=== PATIENT | male | born 1965 | race Caucasian/White ===

== ENCOUNTER 2022-01-19 16:40 | Inpatient (IN) | payer MEDICAID, OTHER ==
[~2022-01-19] VITALS: Ht 190.5 cm; Wt 185.5 kg
[~2022-01-19 16:40] MED LIST: AMIODARONE 450mg/250ml AE 250 ML IV SCH
[2022-01-19] MEDS ORDERED: AMIODARONE 450mg/250ml AE 250 ML IV ONE (17:07)
[2022-01-19] MEDS ORDERED: cefTRIAXone 1GM/50ML D5W 50 ML IV ONE (17:15)
[2022-01-19] MEDS ORDERED: AZITHROMYCIN 500MG/ 250ML 250 ML IV ONE (17:15)
[2022-01-19] MEDS ORDERED: FUROSEMIDE 40 MG/4 ML VIAL IV ONE ×2 (17:15→21:30)
[2022-01-19] MEDS ORDERED: methylPREDNISolone SOD SUCC 125 MG/2 ML VL IV ONE ×2 (17:15)
[2022-01-19 17:39] VITALS: BP 138/75
[2022-01-19 18:31] LABS: Urine Bacteria MANY /hpf (None Seen); Urine Blood Negative /uL (Negative); Urine Mucus MODERATE (None Seen); Urine Specific Gravity 1.021 (1.001-1.035); Urine WBC 552 /hpf (0 - 3); Urine WBC Clumps PRESENT /hpf (None Seen)
[2022-01-19 18:43] LABS: Basophils # (auto) 0.1 10 ^3/uL (0-0.2); Basophils % (auto) 0.7 % (0.0-2.0); Eosinophils # (auto) 0 10 ^3/uL (0-0.8); Eosinophils % (auto) 0.2 % (0.0-7.0); Hematocrit 43.5 % (41.0-53.0); Hemoglobin 14.4 g/dL (13.5-17.5); Lymphocytes # (auto) 1.4 10 ^3/uL (0.4-5.4); Mean Corpuscular Hemoglobin 28.2 pg (28.0-32.0); Mean Corpuscular Volume 85.5 fL (80.0-100.0); Monocytes # (auto) 0.7 10 ^3/uL (0-1.3); Monocytes % (auto) 7.3 % (0.0-12.0); Neutrophils # (auto) 6.8 10 ^3/uL (1.6-8.6); Neutrophils % (auto) 75.8 % (37.0-80.0); Nucleated Red Blood Cells % 0.1 %; Red Blood Cells 5.08 10^6/uL (4.5-5.90); Red Cell Distribution Width 15.2 % (11.8-14.3)
[2022-01-19 19:00] LABS: INR 1.23 (0.9-1.15); Partial Thromboplastin Time 28.2 sec (23.6-33.0)
[2022-01-19] MEDS: AMIODARONE 450mg/250ml AE 250 ML IV SCH (19:25)
[2022-01-19 19:35] LABS: Albumin 2.8 g/dL (3.4-5.0); Calcium 8.6 mg/dL (8.5-10.1); Potassium 3.3 mmol/L (3.5-5.1)
[2022-01-19 19:40] LABS: BUN/Creatinine Ratio 12.9; Bilirubin, Total 0.9 mg/dL (0.2-1.0); Total Protein 6.8 g/dL (6.4-8.2)
[2022-01-19 21:20] VITALS: BP 102/64
[2022-01-19] MEDS ORDERED: NITROGLYCERIN 0.4 MG SL TAB SL PRN (21:30)
[2022-01-19] MEDS ORDERED: HEPARIN 1,000 UNITS/ml 1ML VIAL SC SCH (22:00)
[2022-01-19] MEDS ORDERED: HEPARIN SODIUM (PORCINE) 5000 UNITS/ML 1ML VIAL ONE (22:14)
[2022-01-19] MEDS: ATORVASTATIN 20 MG TAB PO SCH (22:23)
[2022-01-19] MEDS ORDERED: ASCO500T11 PO (22:34)
[2022-01-19] MEDS ORDERED: PERCOT PO (22:34)
[2022-01-19] MEDS ORDERED: FURO1TAB31 PO (22:34)
[2022-01-19] MEDS ORDERED: APIX5TAB PO (22:34)
[2022-01-19] MEDS ORDERED: OMEP20TA PO (22:34)
[2022-01-19] MEDS ORDERED: GABA300C10 PO (22:34)
[2022-01-19] MEDS ORDERED: IPRIH INH (22:34)
[2022-01-19] MEDS ORDERED: ZOLP10TA PO (22:34)
[2022-01-19] MEDS ORDERED: CHOL20007 PO (22:34)
[2022-01-19] MEDS ORDERED: ALBUAER3 IN (22:34)
[2022-01-19] MEDS ORDERED: CLON-853 PO (22:34)
[2022-01-19] MEDS ORDERED: ASPI-543 PO (22:34)
[2022-01-19] MEDS: CARVEDILOL 3.125 MG TAB PO SCH (22:45)
[2022-01-20] MEDS ORDERED: AMIODARONE 450mg/250ml AE 250 ML IV SCH
[2022-01-20 00:52] VITALS: BP 102/64
[2022-01-20 02:06] VITALS: BP 78/37
[2022-01-20] MEDS: ACETAMINOPHEN 325 MG TAB PO PRN ×2 (02:15→09:22)
[2022-01-20 06:05] VITALS: BP 93/51
[2022-01-20 08:05] VITALS: BP 97/62
[2022-01-20 08:16] LABS: Basophils # (auto) 0 10 ^3/uL (0-0.2); Basophils % (auto) 0.3 % (0.0-2.0); Eosinophils # (auto) 0 10 ^3/uL (0-0.8); Hematocrit 41.4 % (41.0-53.0); Hemoglobin 13.4 g/dL (13.5-17.5); Lymphocytes # (auto) 0.9 10 ^3/uL (0.4-5.4); Lymphocytes % (auto) 13.2 % (10.0-50.0); Mean Corpuscular Hemoglobin 27.7 pg (28.0-32.0); Mean Corpuscular Hgb Conc. 32.4 g/dL (32.0-36.0); Mean Corpuscular Volume 85.6 fL (80.0-100.0); Monocytes # (auto) 0.2 10 ^3/uL (0-1.3); Monocytes % (auto) 3.3 % (0.0-12.0); Neutrophils # (auto) 5.4 10 ^3/uL (1.6-8.6); Neutrophils % (auto) 83.2 % (37.0-80.0); Nucleated Red Blood Cells % 0.1 %; Red Blood Cells 4.84 10^6/uL (4.5-5.90); Red Cell Distribution Width 14.9 % (11.8-14.3); White Blood Cell 6.5 10^3/uL (4.4-10.8)
[2022-01-20] MEDS: FUROSEMIDE 40 MG/4 ML VIAL IV SCH ×2 (09:20→22:47)
[2022-01-20] MEDS: LOSARTAN POTASSIUM 50 MG TAB PO SCH (09:20)
[2022-01-20] MEDS: cefTRIAXone 1GM/50ML D5W 50 ML IV SCH (09:20)
[2022-01-20] MEDS: CARVEDILOL 3.125 MG TAB PO SCH ×2 (09:22→22:46)
[2022-01-20] MEDS ORDERED: ENOXAPARIN SOD 100 MG/1 ML SYRINGE SC SCH (10:00)
[2022-01-20] MEDS: AZITHROMYCIN 500MG/ 250ML 250 ML IV SCH (10:08)
[2022-01-20] MEDS: HYDROcodone-ACET 10/325MG TAB PO PRN (11:16)
[2022-01-20 12:59] LABS: Albumin 2.6 g/dL (3.4-5.0); Calcium 8.1 mg/dL (8.5-10.1); Potassium 4.1 mmol/L (3.5-5.1)
[2022-01-20 13:02] LABS: BUN/Creatinine Ratio 13.3; Bilirubin, Total 0.8 mg/dL (0.2-1.0); Total Protein 6.5 g/dL (6.4-8.2)
[2022-01-20] MEDS: AMIODARONE 450mg/250ml AE 250 ML IV SCH (14:38)
[2022-01-20] MEDS ORDERED: DEXTROSE (50%) 50ML SYRG IV PRN (14:45)
[2022-01-20] MEDS ORDERED: HYDR-4798 PO (17:23)
[2022-01-20] MEDS: ACCU-CHEK COMFORT CURVE STRIP VI SCH ×2 (18:00→22:38)
[2022-01-20] MEDS: InsuLIN REG 1unit/0.01ml Soln (100units/ml) SC SCH ×2 (18:00→22:37)
[2022-01-20 19:06] VITALS: BP 85/52
[2022-01-20] MEDS: MORPHINE SULFATE 4 MG/ML SYR/VIAL IV PRN ×2 (19:44→23:08)
[2022-01-20] MEDS: ENOXAPARIN SOD 150 MG/1 ML SYRINGE SC SCH (20:17)
[2022-01-20] MEDS: ATORVASTATIN 20 MG TAB PO SCH (22:46)
[2022-01-21] VITALS (21 sets, daily range): BP systolic 64–118; BP diastolic 35–69
[2022-01-21] MEDS ORDERED: NOREPINEPHRINE 8 MG/250ML KIT 250 ML IV ONE (03:19)
[2022-01-21] MEDS: NOREPINEPHRINE 8 MG/250ML KIT 250 ML IV SCH (04:05)
[2022-01-21] MEDS: AMIODARONE 450mg/250ml AE 250 ML IV SCH ×2 (06:00→19:45)
[2022-01-21] MEDS: ACCU-CHEK COMFORT CURVE STRIP VI SCH ×4 (07:28→21:46)
[2022-01-21] MEDS: InsuLIN REG 1unit/0.01ml Soln (100units/ml) SC SCH ×4 (07:29→21:46)
[2022-01-21] MEDS: IPRATROPIUM BROM 0.5 MG/2.5ML INH SOL NEB PRN (08:30)
[2022-01-21] MEDS: ALBUTEROL SULF 2.5 MG/0.5ML(0.5%) NEB SOLN NEB PRN (08:30)
[2022-01-21] MEDS: cefTRIAXone 1GM/50ML D5W 50 ML IV SCH (09:14)
[2022-01-21] MEDS: ENOXAPARIN SOD 150 MG/1 ML SYRINGE SC SCH ×2 (10:00→21:11)
[2022-01-21] MEDS: FUROSEMIDE 40 MG/4 ML VIAL IV SCH ×2 (10:12→21:08)
[2022-01-21] MEDS: AZITHROMYCIN 500MG/ 250ML 250 ML IV SCH (10:12)
[2022-01-21] MEDS: CARVEDILOL 3.125 MG TAB PO SCH ×2 (10:52→21:09)
[2022-01-21] MEDS: LOSARTAN POTASSIUM 50 MG TAB PO SCH (10:53)
[2022-01-21 11:30] LABS: Basophils # (auto) 0.1 10 ^3/uL (0-0.2); Basophils % (auto) 0.9 % (0.0-2.0); Eosinophils # (auto) 0 10 ^3/uL (0-0.8); Eosinophils % (auto) 0.3 % (0.0-7.0); Hematocrit 40.3 % (41.0-53.0); Hemoglobin 13.4 g/dL (13.5-17.5); Lymphocytes # (auto) 2.6 10 ^3/uL (0.4-5.4); Lymphocytes % (auto) 20.9 % (10.0-50.0); Mean Corpuscular Hemoglobin 28.5 pg (28.0-32.0); Mean Corpuscular Hgb Conc. 33.3 g/dL (32.0-36.0); Mean Corpuscular Volume 85.5 fL (80.0-100.0); Monocytes # (auto) 1.2 10 ^3/uL (0-1.3); Monocytes % (auto) 9.4 % (0.0-12.0); Neutrophils # (auto) 8.5 10 ^3/uL (1.6-8.6); Neutrophils % (auto) 68.5 % (37.0-80.0); Nucleated Red Blood Cells % 0.2 %; Red Blood Cells 4.72 10^6/uL (4.5-5.90); White Blood Cell 12.5 10^3/uL (4.4-10.8)
[2022-01-21 11:42] LABS: Potassium 3.6 mmol/L (3.5-5.1)
[2022-01-21] MEDS: DOBUTamine 1000MCG/ML 250 ML IV SCH ×4 (12:08→21:10)
[2022-01-21 13:21] LABS: Albumin 2.9 g/dL (3.4-5.0); BUN/Creatinine Ratio 16.1; CRP High Sensitivity 0.6 mg/dL (< 0.3); Calcium 8.4 mg/dL (8.5-10.1)
[2022-01-21 13:24] LABS: Bilirubin, Total 0.7 mg/dL (0.2-1.0); Total Protein 6.1 g/dL (6.4-8.2)
[2022-01-21] MEDS: MORPHINE SULFATE 4 MG/ML SYR/VIAL IV PRN (14:55)
[2022-01-21] MEDS: ATORVASTATIN 20 MG TAB PO SCH (21:11)
[2022-01-22] VITALS (55 sets, daily range): BP systolic 57–147; BP diastolic 33–88
[2022-01-22] MEDS: DOBUTamine 1000MCG/ML 250 ML IV SCH ×4 (02:07→14:04)
[2022-01-22] MEDS: NOREPINEPHRINE 8 MG/250ML KIT 250 ML IV SCH (04:22)
[2022-01-22] MEDS: HYDROcodone-ACET 10/325MG TAB PO PRN ×2 (04:24→21:07)
[2022-01-22 05:19] LABS: Basophils # (auto) 0.1 10 ^3/uL (0-0.2); Basophils % (auto) 1.1 % (0.0-2.0); Eosinophils # (auto) 0 10 ^3/uL (0-0.8); Eosinophils % (auto) 0.3 % (0.0-7.0); Hematocrit 38.3 % (41.0-53.0); Hemoglobin 12.9 g/dL (13.5-17.5); Lymphocytes # (auto) 1.8 10 ^3/uL (0.4-5.4); Lymphocytes % (auto) 21.6 % (10.0-50.0); Mean Corpuscular Hemoglobin 28.9 pg (28.0-32.0); Mean Corpuscular Hgb Conc. 33.8 g/dL (32.0-36.0); Mean Corpuscular Volume 85.4 fL (80.0-100.0); Monocytes # (auto) 0.8 10 ^3/uL (0-1.3); Monocytes % (auto) 9.8 % (0.0-12.0); Neutrophils # (auto) 5.5 10 ^3/uL (1.6-8.6); Neutrophils % (auto) 67.2 % (37.0-80.0); Nucleated Red Blood Cells % 0.1 %; Red Blood Cells 4.48 10^6/uL (4.5-5.90); Red Cell Distribution Width 15.2 % (11.8-14.3); White Blood Cell 8.1 10^3/uL (4.4-10.8)
[2022-01-22 05:57] LABS: BUN/Creatinine Ratio 17.2; Potassium 3.2 mmol/L (3.5-5.1)
[2022-01-22 05:58] LABS: Albumin 2.4 g/dL (3.4-5.0); Bilirubin, Total 0.7 mg/dL (0.2-1.0); Calcium 8.2 mg/dL (8.5-10.1); Magnesium 1.7 mg/dL (1.6-2.6); Phosphorus 3.9 mg/dL (2.5-4.90); Total Protein 5.8 g/dL (6.4-8.2)
[2022-01-22] MEDS: ACCU-CHEK COMFORT CURVE STRIP VI SCH ×4 (06:05→21:39)
[2022-01-22] MEDS: InsuLIN REG 1unit/0.01ml Soln (100units/ml) SC SCH ×4 (06:08→21:42)
[2022-01-22] MEDS: cefTRIAXone 1GM/50ML D5W 50 ML IV SCH ×2 (09:00→10:27)
[2022-01-22] MEDS: AZITHROMYCIN 500MG/ 250ML 250 ML IV SCH ×3 (10:10→13:57)
[2022-01-22] MEDS: CARVEDILOL 3.125 MG TAB PO SCH ×2 (10:18→21:38)
[2022-01-22] MEDS: LOSARTAN POTASSIUM 50 MG TAB PO SCH (10:26)
[2022-01-22] MEDS: ENOXAPARIN SOD 150 MG/1 ML SYRINGE SC SCH ×2 (10:27→21:39)
[2022-01-22] MEDS: FUROSEMIDE 40 MG/4 ML VIAL IV SCH ×2 (10:27→21:36)
[2022-01-22] MEDS ORDERED: DOBUTamine 1000MCG/ML 250 ML IV ONE (10:34)
[2022-01-22] MEDS ORDERED: POTASSIUM CHL 20 Meq TABLET PO ONE (11:45)
[2022-01-22] MEDS: AMIODARONE 450mg/250ml AE 250 ML IV SCH (11:47)
[2022-01-22 16:08] LABS: INR 1.19 (0.9-1.15); Partial Thromboplastin Time 32.8 sec (23.6-33.0)
[2022-01-22] MEDS: DOBUTamine HCL 500 MG in D5W 5% 210 ML IV SCH ×2 (18:15→21:41)
[2022-01-22] MEDS ORDERED: LIDOCAINE 1% (LOCAL ANESTH.) PF 5ml SDV ID ONE (18:30)
[2022-01-22] MEDS: SODIUM CHLOR 0.9% PF (SALINE LOCK) 10ML VIAL/SYR IV SCH (21:38)
[2022-01-22] MEDS: ATORVASTATIN 20 MG TAB PO SCH (21:39)
[2022-01-23] VITALS (63 sets, daily range): BP systolic 88–157; BP diastolic 45–121
[2022-01-23] MEDS: AMIODARONE 450mg/250ml AE 250 ML IV SCH (00:51)
[2022-01-23] MEDS: DOBUTamine HCL 500 MG in D5W 5% 210 ML IV SCH ×3 (00:52→16:15)
[2022-01-23] MEDS: NOREPINEPHRINE 8 MG/250ML KIT 250 ML IV SCH (03:30)
[2022-01-23] MEDS: HYDROcodone-ACET 10/325MG TAB PO PRN ×3 (03:34→18:13)
[2022-01-23 05:18] LABS: Basophils # (auto) 0.1 10 ^3/uL (0-0.2); Eosinophils # (auto) 0.1 10 ^3/uL (0-0.8); Hematocrit 37.1 % (41.0-53.0); Hemoglobin 12.3 g/dL (13.5-17.5); Lymphocytes # (auto) 1.6 10 ^3/uL (0.4-5.4); Lymphocytes % (auto) 23.9 % (10.0-50.0); Mean Corpuscular Hemoglobin 28.6 pg (28.0-32.0); Mean Corpuscular Volume 86.6 fL (80.0-100.0); Monocytes # (auto) 0.5 10 ^3/uL (0-1.3); Neutrophils # (auto) 4.4 10 ^3/uL (1.6-8.6); Neutrophils % (auto) 65.1 % (37.0-80.0); Nucleated Red Blood Cells % 0.2 %; Red Blood Cells 4.29 10^6/uL (4.5-5.90); Red Cell Distribution Width 14.7 % (11.8-14.3); White Blood Cell 6.8 10^3/uL (4.4-10.8)
[2022-01-23 05:38] LABS: Potassium 3.2 mmol/L (3.5-5.1)
[2022-01-23 05:43] LABS: BUN/Creatinine Ratio 18.2
[2022-01-23] MEDS: InsuLIN REG 1unit/0.01ml Soln (100units/ml) SC SCH ×4 (06:00→22:00)
[2022-01-23] MEDS: ACCU-CHEK COMFORT CURVE STRIP VI SCH ×4 (06:01→21:59)
[2022-01-23] MEDS ORDERED: POTASSIUM CHL 20 Meq TABLET PO ONE (09:00)
[2022-01-23] MEDS: cefTRIAXone 1GM/50ML D5W 50 ML IV SCH (09:00)
[2022-01-23] MEDS: SODIUM CHLOR 0.9% PF (SALINE LOCK) 10ML VIAL/SYR IV SCH ×2 (10:00→21:57)
[2022-01-23] MEDS: CARVEDILOL 3.125 MG TAB PO SCH ×2 (10:00→21:58)
[2022-01-23] MEDS: AMIODARONE HCL 200 MG TAB PO SCH ×2 (10:00→21:58)
[2022-01-23] MEDS: ENOXAPARIN SOD 150 MG/1 ML SYRINGE SC SCH ×2 (10:00→21:59)
[2022-01-23] MEDS: AZITHROMYCIN 500MG/ 250ML 250 ML IV SCH (10:00)
[2022-01-23] MEDS: LOSARTAN POTASSIUM 50 MG TAB PO SCH (10:00)
[2022-01-23] MEDS: FUROSEMIDE 40 MG/4 ML VIAL IV SCH ×2 (10:00→21:57)
[2022-01-23 20:16] LABS: Alcohol, Urine < 3.0 mg/dL (0-10); Amphetamine Screen, Urine NEGATIVE (NEGATIVE); Barbiturate Scree,Urine NEGATIVE (NEGATIVE); Benzodiazephine Screen, Urine NEGATIVE (NEGATIVE); Cannabinoid Screen, Urine POSITIVE (NEGATIVE); Cocaine Screen, Urine NEGATIVE (NEGATIVE); Opiate Scree,Urine POSITIVE (NEGATIVE); Phencyclidine Screen, Urine NEGATIVE (NEGATIVE)
[2022-01-23] MEDS: ATORVASTATIN 20 MG TAB PO SCH (21:58)
[2022-01-24] VITALS (49 sets, daily range): BP systolic 92–165; BP diastolic 39–87
[2022-01-24] MEDS: HYDROcodone-ACET 10/325MG TAB PO PRN ×3 (00:47→18:49)
[2022-01-24] MEDS: NOREPINEPHRINE 8 MG/250ML KIT 250 ML IV SCH (02:13)
[2022-01-24] MEDS: DOBUTamine HCL 500 MG in D5W 5% 210 ML IV SCH (02:17)
[2022-01-24 05:05] LABS: Basophils # (auto) 0.1 10 ^3/uL (0-0.2); Basophils % (auto) 0.9 % (0.0-2.0); Eosinophils # (auto) 0.1 10 ^3/uL (0-0.8); Eosinophils % (auto) 1.5 % (0.0-7.0); Hemoglobin 12.9 g/dL (13.5-17.5); Lymphocytes # (auto) 1.9 10 ^3/uL (0.4-5.4); Mean Corpuscular Volume 85.3 fL (80.0-100.0); Monocytes # (auto) 0.6 10 ^3/uL (0-1.3); Neutrophils # (auto) 4.3 10 ^3/uL (1.6-8.6); Neutrophils % (auto) 62.6 % (37.0-80.0); Nucleated Red Blood Cells % 0.1 %; Red Blood Cells 4.45 10^6/uL (4.5-5.90); Red Cell Distribution Width 15.1 % (11.8-14.3); White Blood Cell 6.9 10^3/uL (4.4-10.8)
[2022-01-24 05:23] LABS: Albumin 2.3 g/dL (3.4-5.0); Potassium 3.4 mmol/L (3.5-5.1)
[2022-01-24 05:25] LABS: BUN/Creatinine Ratio 17.6; Magnesium 1.8 mg/dL (1.6-2.6)
[2022-01-24 05:28] LABS: Bilirubin, Total 0.6 mg/dL (0.2-1.0); Total Protein 6.1 g/dL (6.4-8.2)
[2022-01-24] MEDS: InsuLIN REG 1unit/0.01ml Soln (100units/ml) SC SCH ×4 (06:09→22:00)
[2022-01-24] MEDS: ACCU-CHEK COMFORT CURVE STRIP VI SCH ×4 (06:09→22:00)
[2022-01-24] MEDS ORDERED: POTASSIUM CHL 20 Meq TABLET PO ONE (06:45)
[2022-01-24] MEDS ORDERED: MAGNESIUM SULFATE 1GM/100ML 100 ML IV SCH (07:00)
[2022-01-24] MEDS ORDERED: MAGNESIUM SULFATE 1GM/100ML 100 ML IV ONE (07:15)
[2022-01-24] MEDS: CARVEDILOL 3.125 MG TAB PO SCH ×2 (10:00→22:48)
[2022-01-24] MEDS: SODIUM CHLOR 0.9% PF (SALINE LOCK) 10ML VIAL/SYR IV SCH ×2 (10:00→22:00)
[2022-01-24] MEDS: FUROSEMIDE 40 MG/4 ML VIAL IV SCH ×2 (10:00→22:47)
[2022-01-24] MEDS: LOSARTAN POTASSIUM 50 MG TAB PO SCH (10:00)
[2022-01-24] MEDS: ENOXAPARIN SOD 150 MG/1 ML SYRINGE SC SCH ×2 (10:00→22:00)
[2022-01-24] MEDS: AMIODARONE HCL 200 MG TAB PO SCH ×2 (10:00→22:28)
[2022-01-24] MEDS: IPRATROPIUM BROM 0.5 MG/2.5ML INH SOL NEB PRN (20:26)
[2022-01-24] MEDS: ALBUTEROL SULF 2.5 MG/0.5ML(0.5%) NEB SOLN NEB PRN (20:26)
[2022-01-24] MEDS: ATORVASTATIN 20 MG TAB PO SCH (22:27)
[2022-01-24] MEDS: MORPHINE SULFATE 4 MG/ML SYR/VIAL IV PRN (23:02)
[2022-01-25] VITALS (8 sets, daily range): BP systolic 82–139; BP diastolic 52–87
[2022-01-25] MEDS: HYDROcodone-ACET 10/325MG TAB PO PRN (03:25)
[2022-01-25] MEDS: ACCU-CHEK COMFORT CURVE STRIP VI SCH ×4 (06:25→22:00)
[2022-01-25] MEDS: InsuLIN REG 1unit/0.01ml Soln (100units/ml) SC SCH ×4 (06:47→22:57)
[2022-01-25] MEDS: AZITHROMYCIN 500MG/ 250ML 250 ML IV SCH (09:19)
[2022-01-25] MEDS: cefTRIAXone 1GM/50ML D5W 50 ML IV SCH (09:19)
[2022-01-25] MEDS: AMIODARONE HCL 200 MG TAB PO SCH ×2 (09:20→22:53)
[2022-01-25] MEDS: FUROSEMIDE 40 MG/4 ML VIAL IV SCH ×2 (09:23→22:52)
[2022-01-25] MEDS: CARVEDILOL 3.125 MG TAB PO SCH ×2 (09:26→22:54)
[2022-01-25] MEDS: LOSARTAN POTASSIUM 50 MG TAB PO SCH (09:27)
[2022-01-25] MEDS: ENOXAPARIN SOD 150 MG/1 ML SYRINGE SC SCH ×2 (09:29→22:55)
[2022-01-25] MEDS: SODIUM CHLOR 0.9% PF (SALINE LOCK) 10ML VIAL/SYR IV SCH ×2 (09:30→22:52)
[2022-01-25] MEDS: MORPHINE SULFATE 4 MG/ML SYR/VIAL IV PRN (16:22)
[2022-01-25] MEDS: IPRATROPIUM BROM 0.5 MG/2.5ML INH SOL NEB PRN (17:58)
[2022-01-25] MEDS: ALBUTEROL SULF 2.5 MG/0.5ML(0.5%) NEB SOLN NEB PRN (17:58)
[2022-01-25] MEDS: ATORVASTATIN 20 MG TAB PO SCH (22:55)
[2022-01-26] MEDS: HYDROcodone-ACET 10/325MG TAB PO PRN ×2 (00:05→19:42)
[2022-01-26 04:31] VITALS: BP 112/65
[2022-01-26 05:17] LABS: Albumin 2.3 g/dL (3.4-5.0); Calcium 8.1 mg/dL (8.5-10.1); Potassium 3.4 mmol/L (3.5-5.1)
[2022-01-26 05:20] LABS: BUN/Creatinine Ratio 22.5
[2022-01-26 05:22] LABS: Bilirubin, Total 0.6 mg/dL (0.2-1.0); Total Protein 5.9 g/dL (6.4-8.2)
[2022-01-26] MEDS: InsuLIN REG 1unit/0.01ml Soln (100units/ml) SC SCH ×4 (06:09→21:34)
[2022-01-26] MEDS: ACCU-CHEK COMFORT CURVE STRIP VI SCH ×4 (06:09→21:40)
[2022-01-26] MEDS: cefTRIAXone 1GM/50ML D5W 50 ML IV SCH (08:23)
[2022-01-26 09:00] VITALS: BP 82/56
[2022-01-26] MEDS: LOSARTAN POTASSIUM 50 MG TAB PO SCH (10:00)
[2022-01-26] MEDS: CARVEDILOL 3.125 MG TAB PO SCH ×2 (10:00→21:39)
[2022-01-26] MEDS: AZITHROMYCIN 500MG/ 250ML 250 ML IV SCH (10:09)
[2022-01-26] MEDS: ENOXAPARIN SOD 150 MG/1 ML SYRINGE SC SCH ×2 (10:09→21:40)
[2022-01-26] MEDS: SODIUM CHLOR 0.9% PF (SALINE LOCK) 10ML VIAL/SYR IV SCH ×2 (10:11→21:37)
[2022-01-26] MEDS: FUROSEMIDE 40 MG/4 ML VIAL IV SCH ×2 (10:11→21:37)
[2022-01-26] MEDS: AMIODARONE HCL 200 MG TAB PO SCH ×2 (10:12→21:38)
[2022-01-26] MEDS: MORPHINE SULFATE 4 MG/ML SYR/VIAL IV PRN (12:05)
[2022-01-26 13:00] VITALS: BP 118/62
[2022-01-26] MEDS: POTASSIUM CHLORIDE 40 MEQ in SOD CHL 0.45% 1,000 ML IV SCH ×2 (13:30→15:30)
[2022-01-26 17:00] VITALS: BP 90/69
[2022-01-26] MEDS: ATORVASTATIN 20 MG TAB PO SCH (21:39)
[2022-01-26 22:00] VITALS: BP 114/73
[2022-01-27] MEDS: IPRATROPIUM BROM 0.5 MG/2.5ML INH SOL NEB PRN (00:13)
[2022-01-27] MEDS: ALBUTEROL SULF 2.5 MG/0.5ML(0.5%) NEB SOLN NEB PRN (00:13)
[2022-01-27] MEDS: HYDROcodone-ACET 10/325MG TAB PO PRN ×2 (02:01→18:35)
[2022-01-27 05:00] VITALS: BP 116/54
[2022-01-27 05:40] LABS: Basophils # (auto) 0.1 10 ^3/uL (0-0.2); Basophils % (auto) 0.9 % (0.0-2.0); Eosinophils # (auto) 0.1 10 ^3/uL (0-0.8); Eosinophils % (auto) 1.3 % (0.0-7.0); Hemoglobin 13.4 g/dL (13.5-17.5); Lymphocytes # (auto) 2.3 10 ^3/uL (0.4-5.4); Lymphocytes % (auto) 28.2 % (10.0-50.0); Mean Corpuscular Hemoglobin 29.3 pg (28.0-32.0); Mean Corpuscular Hgb Conc. 34.4 g/dL (32.0-36.0); Mean Corpuscular Volume 85.1 fL (80.0-100.0); Monocytes # (auto) 0.9 10 ^3/uL (0-1.3); Monocytes % (auto) 10.5 % (0.0-12.0); Neutrophils # (auto) 4.9 10 ^3/uL (1.6-8.6); Neutrophils % (auto) 59.1 % (37.0-80.0); Nucleated Red Blood Cells % 0.1 %; Red Blood Cells 4.58 10^6/uL (4.5-5.90); Red Cell Distribution Width 15.1 % (11.8-14.3); White Blood Cell 8.2 10^3/uL (4.4-10.8)
[2022-01-27 05:55] LABS: Albumin 2.3 g/dL (3.4-5.0); Calcium 8.3 mg/dL (8.5-10.1); Potassium 4.2 mmol/L (3.5-5.1)
[2022-01-27 06:00] LABS: BUN/Creatinine Ratio 18.9; Bilirubin, Total 0.6 mg/dL (0.2-1.0)
[2022-01-27] MEDS: InsuLIN REG 1unit/0.01ml Soln (100units/ml) SC SCH ×4 (07:00→21:31)
[2022-01-27] MEDS: ACCU-CHEK COMFORT CURVE STRIP VI SCH ×4 (07:03→21:57)
[2022-01-27] MEDS: cefTRIAXone 1GM/50ML D5W 50 ML IV SCH (08:24)
[2022-01-27 09:00] VITALS: BP 104/63
[2022-01-27 09:27] LABS: INR 1.19 (0.9-1.15); Partial Thromboplastin Time 32.2 sec (23.6-33.0)
[2022-01-27] MEDS: FUROSEMIDE 40 MG/4 ML VIAL IV SCH (09:48)
[2022-01-27] MEDS: AMIODARONE HCL 200 MG TAB PO SCH ×2 (09:48→21:56)
[2022-01-27] MEDS: LOSARTAN POTASSIUM 50 MG TAB PO SCH (09:49)
[2022-01-27] MEDS: CARVEDILOL 3.125 MG TAB PO SCH ×2 (09:49→21:56)
[2022-01-27] MEDS: SODIUM CHLOR 0.9% PF (SALINE LOCK) 10ML VIAL/SYR IV SCH ×2 (09:50→21:55)
[2022-01-27] MEDS: AZITHROMYCIN 500MG/ 250ML 250 ML IV SCH (09:51)
[2022-01-27] MEDS: ENOXAPARIN SOD 150 MG/1 ML SYRINGE SC SCH ×2 (10:00→21:56)
[2022-01-27 13:00] VITALS: BP 88/64
[2022-01-27 14:40] VITALS: BP 86/56
[2022-01-27 17:00] VITALS: BP 108/69
[2022-01-27] MEDS: BUMETANIDE 2.5mg/10ml (0.25 mg/ml) INJ IV SCH (18:00)
[2022-01-27] MEDS: ATORVASTATIN 20 MG TAB PO SCH (21:56)
[2022-01-27 22:00] VITALS: BP 88/63
[2022-01-28] VITALS (8 sets, daily range): BP systolic 81–108; BP diastolic 55–72
[2022-01-28] MEDS ORDERED: POTASSIUM CHL 10MEQ/50ML 200 ML IV ONE (01:58)
[2022-01-28] MEDS: POTASSIUM CHLORIDE 40 MEQ in SOD CHL 0.45% 1,000 ML IV SCH (02:24)
[2022-01-28] MEDS: HYDROcodone-ACET 10/325MG TAB PO PRN ×3 (02:26→17:43)
[2022-01-28] MEDS: BUMETANIDE 2.5mg/10ml (0.25 mg/ml) INJ IV SCH ×2 (05:50→17:40)
[2022-01-28] MEDS: InsuLIN REG 1unit/0.01ml Soln (100units/ml) SC SCH ×4 (05:53→21:58)
[2022-01-28] MEDS: ACCU-CHEK COMFORT CURVE STRIP VI SCH ×4 (05:53→21:57)
[2022-01-28] MEDS: SOD CHL 0.45% WITH 20MEQ KCL 1,000 ML IV SCH (07:15)
[2022-01-28] MEDS: ALBUTEROL SULF 2.5 MG/0.5ML(0.5%) NEB SOLN NEB PRN ×2 (09:52→17:51)
[2022-01-28] MEDS: CARVEDILOL 3.125 MG TAB PO SCH ×2 (10:00→21:57)
[2022-01-28] MEDS: LOSARTAN POTASSIUM 50 MG TAB PO SCH (10:00)
[2022-01-28] MEDS: cefTRIAXone 1GM/50ML D5W 50 ML IV SCH (10:00)
[2022-01-28] MEDS: ENOXAPARIN SOD 150 MG/1 ML SYRINGE SC SCH ×2 (10:00→21:57)
[2022-01-28] MEDS: SODIUM CHLOR 0.9% PF (SALINE LOCK) 10ML VIAL/SYR IV SCH ×2 (10:18→21:56)
[2022-01-28] MEDS: AZITHROMYCIN 500MG/ 250ML 250 ML IV SCH (10:18)
[2022-01-28] MEDS: AMIODARONE HCL 200 MG TAB PO SCH ×2 (10:19→21:56)
[2022-01-28 16:09] LABS: BUN/Creatinine Ratio 22.4; Calcium 8.4 mg/dL (8.5-10.1); Potassium 3.8 mmol/L (3.5-5.1)
[2022-01-28] MEDS: IPRATROPIUM BROM 0.5 MG/2.5ML INH SOL NEB PRN (17:51)
[2022-01-28] MEDS: ATORVASTATIN 20 MG TAB PO SCH (21:57)
[2022-01-28] MEDS: NYSTATIN TOPICAL POWDER 15GM TOP SCH (21:57)
[2022-01-29] MEDS: HYDROcodone-ACET 10/325MG TAB PO PRN ×3 (00:25→15:56)
[2022-01-29 01:48] VITALS: BP 101/70
[2022-01-29] MEDS: SOD CHL 0.45% WITH 20MEQ KCL 1,000 ML IV SCH (03:15)
[2022-01-29 05:00] VITALS: BP 115/76
[2022-01-29] MEDS: BUMETANIDE 2.5mg/10ml (0.25 mg/ml) INJ IV SCH ×2 (06:00→18:00)
[2022-01-29 06:01] LABS: BUN/Creatinine Ratio 20.2; Calcium 8.9 mg/dL (8.5-10.1); Potassium 4.4 mmol/L (3.5-5.1)
[2022-01-29] MEDS: ACCU-CHEK COMFORT CURVE STRIP VI SCH ×4 (06:40→22:00)
[2022-01-29] MEDS: InsuLIN REG 1unit/0.01ml Soln (100units/ml) SC SCH ×4 (06:47→22:00)
[2022-01-29] MEDS: ENOXAPARIN SOD 150 MG/1 ML SYRINGE SC SCH ×2 (08:50→22:00)
[2022-01-29] MEDS: AZITHROMYCIN 500MG/ 250ML 250 ML IV SCH (08:50)
[2022-01-29] MEDS: SODIUM CHLOR 0.9% PF (SALINE LOCK) 10ML VIAL/SYR IV SCH ×2 (08:50→22:00)
[2022-01-29] MEDS: AMIODARONE HCL 200 MG TAB PO SCH ×2 (08:52→22:00)
[2022-01-29] MEDS: CARVEDILOL 3.125 MG TAB PO SCH ×2 (08:53→22:00)
[2022-01-29] MEDS: LOSARTAN POTASSIUM 50 MG TAB PO SCH (08:54)
[2022-01-29] MEDS: NYSTATIN TOPICAL POWDER 15GM TOP SCH ×2 (08:54→22:54)
[2022-01-29] MEDS: cefTRIAXone 1GM/50ML D5W 50 ML IV SCH (08:55)
[2022-01-29 09:00] VITALS: BP 101/80
[2022-01-29] MEDS: IPRATROPIUM BROM 0.5 MG/2.5ML INH SOL NEB PRN (11:08)
[2022-01-29] MEDS: ALBUTEROL SULF 2.5 MG/0.5ML(0.5%) NEB SOLN NEB PRN (11:08)
[2022-01-29 13:00] VITALS: BP 96/72
[2022-01-29 16:58] VITALS: BP 102/62
[2022-01-29 22:00] VITALS: BP 98/77
[2022-01-29] MEDS: ATORVASTATIN 20 MG TAB PO SCH (22:00)
[2022-01-30] VITALS (8 sets, daily range): BP systolic 94–128; BP diastolic 62–74
[2022-01-30] MEDS: HYDROcodone-ACET 10/325MG TAB PO PRN ×3 (00:27→17:54)
[2022-01-30 05:30] LABS: Basophils # (auto) 0.1 10 ^3/uL (0-0.2); Basophils % (auto) 0.8 % (0.0-2.0); Eosinophils # (auto) 0.1 10 ^3/uL (0-0.8); Hematocrit 40.2 % (41.0-53.0); Hemoglobin 13.2 g/dL (13.5-17.5); Lymphocytes # (auto) 2.1 10 ^3/uL (0.4-5.4); Lymphocytes % (auto) 29.3 % (10.0-50.0); Mean Corpuscular Hemoglobin 28.1 pg (28.0-32.0); Mean Corpuscular Hgb Conc. 32.9 g/dL (32.0-36.0); Mean Corpuscular Volume 85.4 fL (80.0-100.0); Monocytes # (auto) 0.7 10 ^3/uL (0-1.3); Monocytes % (auto) 9.2 % (0.0-12.0); Neutrophils # (auto) 4.2 10 ^3/uL (1.6-8.6); Neutrophils % (auto) 59.7 % (37.0-80.0); Nucleated Red Blood Cells % 0.1 %; Red Blood Cells 4.71 10^6/uL (4.5-5.90); Red Cell Distribution Width 15.3 % (11.8-14.3); White Blood Cell 7.1 10^3/uL (4.4-10.8)
[2022-01-30 05:48] LABS: Albumin 2.4 g/dL (3.4-5.0); Calcium 8.8 mg/dL (8.5-10.1)
[2022-01-30 05:54] LABS: Bilirubin, Total 0.5 mg/dL (0.2-1.0)
[2022-01-30] MEDS: BUMETANIDE 2.5mg/10ml (0.25 mg/ml) INJ IV SCH ×2 (06:00→18:20)
[2022-01-30] MEDS: ACCU-CHEK COMFORT CURVE STRIP VI SCH ×4 (06:46→22:00)
[2022-01-30] MEDS: InsuLIN REG 1unit/0.01ml Soln (100units/ml) SC SCH ×4 (06:46→22:10)
[2022-01-30] MEDS: LOSARTAN POTASSIUM 50 MG TAB PO SCH (10:00)
[2022-01-30] MEDS: ENOXAPARIN SOD 150 MG/1 ML SYRINGE SC SCH ×2 (10:00→22:09)
[2022-01-30] MEDS: AZITHROMYCIN 500MG/ 250ML 250 ML IV SCH (10:12)
[2022-01-30] MEDS: AMIODARONE HCL 200 MG TAB PO SCH ×2 (10:13→22:00)
[2022-01-30] MEDS: CARVEDILOL 3.125 MG TAB PO SCH ×2 (10:15→22:00)
[2022-01-30] MEDS: SODIUM CHLOR 0.9% PF (SALINE LOCK) 10ML VIAL/SYR IV SCH ×2 (10:16→22:00)
[2022-01-30] MEDS: NYSTATIN TOPICAL POWDER 15GM TOP SCH ×2 (10:16→22:00)
[2022-01-30] MEDS: ATORVASTATIN 20 MG TAB PO SCH (22:00)
[2022-01-31] VITALS (7 sets, daily range): BP systolic 97–145; BP diastolic 57–83
[2022-01-31] MEDS: HYDROcodone-ACET 10/325MG TAB PO PRN ×2 (00:05→09:26)
[2022-01-31] MEDS: BUMETANIDE 2.5mg/10ml (0.25 mg/ml) INJ IV SCH ×2 (06:00→18:02)
[2022-01-31] MEDS: ACCU-CHEK COMFORT CURVE STRIP VI SCH ×4 (06:13→21:41)
[2022-01-31] MEDS: InsuLIN REG 1unit/0.01ml Soln (100units/ml) SC SCH ×4 (06:14→21:50)
[2022-01-31] MEDS: SODIUM CHLOR 0.9% PF (SALINE LOCK) 10ML VIAL/SYR IV SCH ×2 (09:23→21:41)
[2022-01-31] MEDS: AZITHROMYCIN 500MG/ 250ML 250 ML IV SCH (09:23)
[2022-01-31] MEDS: AMIODARONE HCL 200 MG TAB PO SCH ×2 (09:23→21:41)
[2022-01-31] MEDS: CARVEDILOL 3.125 MG TAB PO SCH ×2 (09:24→21:44)
[2022-01-31] MEDS: ENOXAPARIN SOD 150 MG/1 ML SYRINGE SC SCH ×2 (09:25→21:41)
[2022-01-31] MEDS: NYSTATIN TOPICAL POWDER 15GM TOP SCH ×2 (09:25→21:41)
[2022-01-31] MEDS: LOSARTAN POTASSIUM 50 MG TAB PO SCH (10:00)
[2022-01-31 13:16] LABS: INR 1.18 (0.9-1.15); Partial Thromboplastin Time 30.5 sec (23.6-33.0)
[2022-01-31] MEDS: ALBUTEROL SULF 2.5 MG/0.5ML(0.5%) NEB SOLN NEB PRN (14:19)
[2022-01-31] MEDS: IPRATROPIUM BROM 0.5 MG/2.5ML INH SOL NEB PRN (14:19)
[2022-01-31] MEDS: HYDROcodone-ACET 5/325MG TAB PO PRN (16:25)
[2022-01-31] MEDS: DOCUSATE SOD 100 MG CAP PO PRN (16:25)
[2022-01-31] MEDS: ATORVASTATIN 20 MG TAB PO SCH (21:41)
[2022-02-01] MEDS: HYDROcodone-ACET 5/325MG TAB PO PRN ×3 (01:06→17:25)
[2022-02-01 05:00] VITALS: BP 128/67
[2022-02-01] MEDS: BUMETANIDE 2.5mg/10ml (0.25 mg/ml) INJ IV SCH ×2 (06:00→17:58)
[2022-02-01] MEDS: InsuLIN REG 1unit/0.01ml Soln (100units/ml) SC SCH ×4 (06:44→22:20)
[2022-02-01] MEDS: ACCU-CHEK COMFORT CURVE STRIP VI SCH ×4 (06:44→22:11)
[2022-02-01 08:00] VITALS: BP 102/80
[2022-02-01 08:30] VITALS: BP 102/80
[2022-02-01] MEDS: SODIUM CHLOR 0.9% PF (SALINE LOCK) 10ML VIAL/SYR IV SCH ×2 (09:14→22:08)
[2022-02-01] MEDS: AZITHROMYCIN 500MG/ 250ML 250 ML IV SCH (10:00)
[2022-02-01] MEDS: LOSARTAN POTASSIUM 50 MG TAB PO SCH (10:49)
[2022-02-01] MEDS: NYSTATIN TOPICAL POWDER 15GM TOP SCH ×2 (10:50→22:11)
[2022-02-01] MEDS: PANTOPRAZOLE 40 MG TAB PO SCH (10:50)
[2022-02-01] MEDS: CARVEDILOL 3.125 MG TAB PO SCH ×2 (10:51→22:11)
[2022-02-01] MEDS: AMIODARONE HCL 200 MG TAB PO SCH ×2 (10:51→22:10)
[2022-02-01 12:25] VITALS: BP 109/57
[2022-02-01 14:20] VITALS: BP 100/54
[2022-02-01] MEDS: DOCUSATE SOD 100 MG CAP PO PRN (18:00)
[2022-02-01] MEDS: ATORVASTATIN 20 MG TAB PO SCH (22:11)
[2022-02-02] MEDS: HYDROcodone-ACET 5/325MG TAB PO PRN ×4 (00:53→23:56)
[2022-02-02 04:45] VITALS: BP 118/56
[2022-02-02] MEDS: BUMETANIDE 2.5mg/10ml (0.25 mg/ml) INJ IV SCH ×2 (05:27→18:00)
[2022-02-02] MEDS: ACCU-CHEK COMFORT CURVE STRIP VI SCH ×4 (06:26→22:00)
[2022-02-02] MEDS: InsuLIN REG 1unit/0.01ml Soln (100units/ml) SC SCH ×4 (06:26→22:01)
[2022-02-02 08:25] VITALS: BP 109/50
[2022-02-02] MEDS: SODIUM CHLOR 0.9% PF (SALINE LOCK) 10ML VIAL/SYR IV SCH ×2 (09:04→22:02)
[2022-02-02] MEDS: AMIODARONE HCL 200 MG TAB PO SCH ×2 (09:04→22:02)
[2022-02-02] MEDS: PANTOPRAZOLE 40 MG TAB PO SCH (09:05)
[2022-02-02] MEDS: NYSTATIN TOPICAL POWDER 15GM TOP SCH ×2 (09:05→22:00)
[2022-02-02] MEDS: LOSARTAN POTASSIUM 50 MG TAB PO SCH (09:06)
[2022-02-02] MEDS: CARVEDILOL 3.125 MG TAB PO SCH ×2 (09:06→22:00)
[2022-02-02 13:00] VITALS: BP 88/60
[2022-02-02 16:37] VITALS: BP 101/63
[2022-02-02 22:00] VITALS: BP 96/58
[2022-02-02] MEDS: ATORVASTATIN 20 MG TAB PO SCH (22:01)
[2022-02-02] MEDS: DOCUSATE SOD 100 MG CAP PO PRN (23:55)
[2022-02-03] VITALS (13 sets, daily range): BP systolic 79–135; BP diastolic 8–88
[2022-02-03] MEDS: BUMETANIDE 2.5mg/10ml (0.25 mg/ml) INJ IV SCH ×2 (05:03→18:00)
[2022-02-03 05:59] LABS: INR 1.16 (0.9-1.15); Partial Thromboplastin Time 26.5 sec (23.6-33.0)
[2022-02-03] MEDS: InsuLIN REG 1unit/0.01ml Soln (100units/ml) SC SCH ×3 (06:19→18:08)
[2022-02-03] MEDS: ACCU-CHEK COMFORT CURVE STRIP VI SCH ×4 (06:19→22:42)
[2022-02-03] MEDS: HYDROcodone-ACET 5/325MG TAB PO PRN ×3 (07:56→23:48)
[2022-02-03 08:49] LABS: BUN/Creatinine Ratio 22.9; Calcium 8.8 mg/dL (8.5-10.1); Magnesium 2.1 mg/dL (1.6-2.6)
[2022-02-03 09:05] LABS: Potassium 3.8 mmol/L (3.5-5.1)
[2022-02-03] MEDS ORDERED: LIDOCAINE 2%HCL (LOCAL ANESTH.) INJ 10ml MDV ONE (09:10)
[2022-02-03] MEDS: SODIUM CHLOR 0.9% PF (SALINE LOCK) 10ML VIAL/SYR IV SCH ×2 (09:16→22:41)
[2022-02-03] MEDS: PANTOPRAZOLE 40 MG TAB PO SCH (09:17)
[2022-02-03] MEDS: CARVEDILOL 3.125 MG TAB PO SCH ×2 (09:18→22:42)
[2022-02-03] MEDS: AMIODARONE HCL 200 MG TAB PO SCH ×2 (09:18→22:41)
[2022-02-03] MEDS: LOSARTAN POTASSIUM 50 MG TAB PO SCH (09:19)
[2022-02-03] MEDS: NYSTATIN TOPICAL POWDER 15GM TOP SCH ×2 (10:51→22:42)
[2022-02-03] MEDS: ALBUTEROL SULF 2.5 MG/0.5ML(0.5%) NEB SOLN NEB PRN (19:33)
[2022-02-03] MEDS: IPRATROPIUM BROM 0.5 MG/2.5ML INH SOL NEB PRN (19:33)
[2022-02-03] MEDS: ATORVASTATIN 20 MG TAB PO SCH (22:41)
[2022-02-04] VITALS (9 sets, daily range): BP systolic 83–112; BP diastolic 49–81
[2022-02-04] MEDS: InsuLIN REG 1unit/0.01ml Soln (100units/ml) SC SCH ×5 (01:05→21:45)
[2022-02-04] MEDS: BUMETANIDE 2.5mg/10ml (0.25 mg/ml) INJ IV SCH ×2 (05:29→18:30)
[2022-02-04] MEDS: ACCU-CHEK COMFORT CURVE STRIP VI SCH ×4 (06:37→22:15)
[2022-02-04] MEDS: HYDROcodone-ACET 5/325MG TAB PO PRN ×3 (08:31→22:30)
[2022-02-04] MEDS: NYSTATIN TOPICAL POWDER 15GM TOP SCH ×2 (10:32→22:15)
[2022-02-04] MEDS: PANTOPRAZOLE 40 MG TAB PO SCH (10:32)
[2022-02-04] MEDS: LOSARTAN POTASSIUM 50 MG TAB PO SCH (10:32)
[2022-02-04] MEDS: CARVEDILOL 3.125 MG TAB PO SCH ×2 (10:32→22:14)
[2022-02-04] MEDS: SODIUM CHLOR 0.9% PF (SALINE LOCK) 10ML VIAL/SYR IV SCH ×2 (10:32→22:27)
[2022-02-04] MEDS: AMIODARONE HCL 200 MG TAB PO SCH ×2 (12:23→22:00)
[2022-02-04] MEDS: ALBUTEROL SULF 2.5 MG/0.5ML(0.5%) NEB SOLN NEB PRN ×2 (13:27→21:10)
[2022-02-04] MEDS: IPRATROPIUM BROM 0.5 MG/2.5ML INH SOL NEB PRN ×2 (13:27→21:10)
[2022-02-04] MEDS ORDERED: PANT40T PO (13:37)
[2022-02-04] MEDS ORDERED: LOSA-69 PO (13:37)
[2022-02-04] MEDS ORDERED: ATOR20TA50 PO (13:37)
[2022-02-04] MEDS ORDERED: CAR3125T PO (13:37)
[2022-02-04] MEDS ORDERED: BUME1TAB25 PO (13:41)
[2022-02-04] MEDS ORDERED: AMIO200T33 PO (13:41)
[2022-02-04] MEDS ORDERED: METF-370 PO (13:44)
[2022-02-04] MEDS ORDERED: ALPRAZolam 0.5 MG TAB PO ONE (15:30)
[2022-02-04] MEDS: ATORVASTATIN 20 MG TAB PO SCH (22:14)
[2022-02-05] VITALS (8 sets, daily range): BP systolic 95–126; BP diastolic 50–83
[2022-02-05] MEDS: HYDROcodone-ACET 5/325MG TAB PO PRN ×4 (05:07→23:44)
[2022-02-05] MEDS: BUMETANIDE 2.5mg/10ml (0.25 mg/ml) INJ IV SCH (05:12)
[2022-02-05] MEDS: InsuLIN REG 1unit/0.01ml Soln (100units/ml) SC SCH ×4 (07:00→22:42)
[2022-02-05] MEDS: ACCU-CHEK COMFORT CURVE STRIP VI SCH ×4 (07:16→22:39)
[2022-02-05] MEDS ORDERED: APIXABAN 5 MG TAB PO SCH (10:00)
[2022-02-05] MEDS: SODIUM CHLOR 0.9% PF (SALINE LOCK) 10ML VIAL/SYR IV SCH ×2 (10:38→21:30)
[2022-02-05] MEDS: PANTOPRAZOLE 40 MG TAB PO SCH (10:38)
[2022-02-05] MEDS: AMIODARONE HCL 200 MG TAB PO SCH ×2 (10:38→22:00)
[2022-02-05] MEDS: LOSARTAN POTASSIUM 50 MG TAB PO SCH (10:39)
[2022-02-05] MEDS: CARVEDILOL 3.125 MG TAB PO SCH ×2 (10:40→22:00)
[2022-02-05] MEDS: NYSTATIN TOPICAL POWDER 15GM TOP SCH ×2 (10:41→22:43)
[2022-02-05] MEDS: IPRATROPIUM BROM 0.5 MG/2.5ML INH SOL NEB PRN (11:31)
[2022-02-05] MEDS: ALBUTEROL SULF 2.5 MG/0.5ML(0.5%) NEB SOLN NEB PRN (11:31)
[2022-02-05 14:34] LABS: INR 1.22 (0.9-1.15)
[2022-02-05] MEDS: BUMETANIDE 1 MG TAB PO SCH (18:50)
[2022-02-05] MEDS: ATORVASTATIN 20 MG TAB PO SCH (22:39)
[2022-02-05 22:44] LABS: Basophils # (auto) 0.1 10 ^3/uL (0-0.2); Basophils % (auto) 0.7 % (0.0-2.0); Eosinophils # (auto) 0.1 10 ^3/uL (0-0.8); Hematocrit 37.5 % (41.0-53.0); Hemoglobin 12.5 g/dL (13.5-17.5); Lymphocytes # (auto) 2.2 10 ^3/uL (0.4-5.4); Lymphocytes % (auto) 22.9 % (10.0-50.0); Mean Corpuscular Hemoglobin 28.5 pg (28.0-32.0); Mean Corpuscular Hgb Conc. 33.3 g/dL (32.0-36.0); Mean Corpuscular Volume 85.8 fL (80.0-100.0); Monocytes # (auto) 0.7 10 ^3/uL (0-1.3); Monocytes % (auto) 7.7 % (0.0-12.0); Neutrophils # (auto) 6.4 10 ^3/uL (1.6-8.6); Neutrophils % (auto) 67.7 % (37.0-80.0); Nucleated Red Blood Cells % 0.1 %; Red Blood Cells 4.38 10^6/uL (4.5-5.90); Red Cell Distribution Width 15.6 % (11.8-14.3); White Blood Cell 9.5 10^3/uL (4.4-10.8)
[2022-02-05 22:48] LABS: INR 1.21 (0.9-1.15); Partial Thromboplastin Time 26.9 sec (23.6-33.0)
[2022-02-05 22:49] LABS: Calcium 8.5 mg/dL (8.5-10.1); Potassium 3.8 mmol/L (3.5-5.1)
[2022-02-06] VITALS (14 sets, daily range): BP systolic 92–136; BP diastolic 58–93
[2022-02-06] MEDS: InsuLIN REG 1unit/0.01ml Soln (100units/ml) SC SCH ×5 (06:09→22:00)
[2022-02-06] MEDS: ACCU-CHEK COMFORT CURVE STRIP VI SCH ×4 (06:09→21:31)
[2022-02-06] MEDS: BUMETANIDE 1 MG TAB PO SCH ×2 (06:10→18:00)
[2022-02-06] MEDS: SODIUM CHLOR 0.9% PF (SALINE LOCK) 10ML VIAL/SYR IV SCH ×2 (10:00→22:00)
[2022-02-06] MEDS: CARVEDILOL 3.125 MG TAB PO SCH ×2 (10:01→21:32)
[2022-02-06] MEDS: LOSARTAN POTASSIUM 50 MG TAB PO SCH (10:01)
[2022-02-06] MEDS: AMIODARONE HCL 200 MG TAB PO SCH ×2 (10:01→21:31)
[2022-02-06] MEDS: PANTOPRAZOLE 40 MG TAB PO SCH (10:02)
[2022-02-06] MEDS: NYSTATIN TOPICAL POWDER 15GM TOP SCH ×2 (10:02→22:00)
[2022-02-06] MEDS ORDERED: fentaNYL CITRATE 100 MCG/2 ML VL IV ONE (11:30)
[2022-02-06] MEDS ORDERED: MIDAZOLAM HCL 2MG/2ML 2ml VIAL (1mg/ml) IV ONE (11:30)
[2022-02-06] MEDS: HYDROcodone-ACET 5/325MG TAB PO PRN (12:40)
[2022-02-06] MEDS ORDERED: LIDOCAINE 2%HCL (LOCAL ANESTH.) INJ 20ML MDV ONE (15:39)
[2022-02-06] MEDS: MORPHINE SULFATE 4 MG/ML SYR/VIAL IV PRN (21:18)
[2022-02-06] MEDS: ATORVASTATIN 20 MG TAB PO SCH (21:32)
[2022-02-07] MEDS: HYDROcodone-ACET 5/325MG TAB PO PRN ×4 (00:45→23:28)
[2022-02-07] MEDS: MORPHINE SULFATE 4 MG/ML SYR/VIAL IV PRN (04:31)
[2022-02-07 05:00] VITALS: BP 111/60
[2022-02-07] MEDS: BUMETANIDE 1 MG TAB PO SCH ×2 (06:13→17:32)
[2022-02-07] MEDS: ACCU-CHEK COMFORT CURVE STRIP VI SCH ×4 (06:15→22:00)
[2022-02-07 07:15] VITALS: BP 111/60
[2022-02-07 09:00] VITALS: BP 111/52
[2022-02-07] MEDS: PANTOPRAZOLE 40 MG TAB PO SCH (10:00)
[2022-02-07] MEDS: SODIUM CHLOR 0.9% PF (SALINE LOCK) 10ML VIAL/SYR IV SCH ×2 (10:00→22:41)
[2022-02-07] MEDS: CARVEDILOL 3.125 MG TAB PO SCH ×2 (10:00→22:00)
[2022-02-07] MEDS: AMIODARONE HCL 200 MG TAB PO SCH ×2 (10:00→22:00)
[2022-02-07] MEDS: LOSARTAN POTASSIUM 50 MG TAB PO SCH (10:00)
[2022-02-07] MEDS: NYSTATIN TOPICAL POWDER 15GM TOP SCH ×2 (10:00→22:41)
[2022-02-07] MEDS ORDERED: DOXY-286 PO (10:55)
[2022-02-07] MEDS ORDERED: BUME1TAB3 PO (10:55)
[2022-02-07] MEDS: InsuLIN REG 1unit/0.01ml Soln (100units/ml) SC SCH ×3 (11:30→22:00)
[2022-02-07 17:00] VITALS: BP 85/56
[2022-02-07 22:39] VITALS: BP 82/58
[2022-02-07] MEDS: ATORVASTATIN 20 MG TAB PO SCH (22:41)
[2022-02-07 22:45] VITALS: BP 98/56
[2022-02-08 05:07] VITALS: BP 72/42
[2022-02-08] MEDS: BUMETANIDE 1 MG TAB PO SCH (05:29)
[2022-02-08] MEDS: ACCU-CHEK COMFORT CURVE STRIP VI SCH ×2 (05:30→11:30)
[2022-02-08 05:31] VITALS: BP 98/53
[2022-02-08] MEDS: InsuLIN REG 1unit/0.01ml Soln (100units/ml) SC SCH ×2 (05:31→11:30)
[2022-02-08] MEDS: HYDROcodone-ACET 5/325MG TAB PO PRN (05:59)
[2022-02-08 08:51] VITALS: BP 93/51
[2022-02-08] MEDS: PANTOPRAZOLE 40 MG TAB PO SCH (10:00)
[2022-02-08] MEDS: AMIODARONE HCL 200 MG TAB PO SCH (10:00)
[2022-02-08] MEDS: CARVEDILOL 3.125 MG TAB PO SCH (10:00)
[2022-02-08] MEDS: NYSTATIN TOPICAL POWDER 15GM TOP SCH (10:00)
[2022-02-08] MEDS: LOSARTAN POTASSIUM 50 MG TAB PO SCH (10:00)
[2022-02-08] MEDS: SODIUM CHLOR 0.9% PF (SALINE LOCK) 10ML VIAL/SYR IV SCH (10:00)
== END 2022-02-08 09:17 | disposition home health service (06) | DRG 133 ==
LOC: EDBD 16:40 → ER 17:00 → TELE 21:22 → DOU IN ICU 01-20 18:04 → TELE-CENTR 01-24 18:17
PROVIDERS: ADMIT Internal Medicine; ATTEND Internal Medicine
PROC: 5A09357 Assistance with Respiratory Ventilation, Less than 24 Consecutive Hours, Continuous Positive Airway Pressure (ICD-10-PCS; 2022-01-19)
PROC: 5A09357 Assistance with Respiratory Ventilation, Less than 24 Consecutive Hours, Continuous Positive Airway Pressure (ICD-10-PCS; 2022-01-20)
PROC: 0W9B3ZZ Drainage of Left Pleural Cavity, Percutaneous Approach (ICD-10-PCS; principal; 2022-01-21)
PROC: 0W993ZZ Drainage of Right Pleural Cavity, Percutaneous Approach (ICD-10-PCS; 2022-01-21)
PROC: 02HV33Z Insertion of Infusion Device into Superior Vena Cava, Percutaneous Approach (ICD-10-PCS; 2022-01-22)
PROC: B548ZZA Ultrasonography of Superior Vena Cava, Guidance (ICD-10-PCS; 2022-01-22)
PROC: 5A09357 Assistance with Respiratory Ventilation, Less than 24 Consecutive Hours, Continuous Positive Airway Pressure (ICD-10-PCS; 2022-01-22)
PROC: 5A09357 Assistance with Respiratory Ventilation, Less than 24 Consecutive Hours, Continuous Positive Airway Pressure (ICD-10-PCS; 2022-01-23)
PROC: 5A09357 Assistance with Respiratory Ventilation, Less than 24 Consecutive Hours, Continuous Positive Airway Pressure (ICD-10-PCS; 2022-01-24)
PROC: 5A09357 Assistance with Respiratory Ventilation, Less than 24 Consecutive Hours, Continuous Positive Airway Pressure (ICD-10-PCS; 2022-01-25)
PROC: 5A09357 Assistance with Respiratory Ventilation, Less than 24 Consecutive Hours, Continuous Positive Airway Pressure (ICD-10-PCS; 2022-01-26)
PROC: 5A09357 Assistance with Respiratory Ventilation, Less than 24 Consecutive Hours, Continuous Positive Airway Pressure (ICD-10-PCS; 2022-01-27)
PROC: 5A09357 Assistance with Respiratory Ventilation, Less than 24 Consecutive Hours, Continuous Positive Airway Pressure (ICD-10-PCS; 2022-01-28)
PROC: 5A09357 Assistance with Respiratory Ventilation, Less than 24 Consecutive Hours, Continuous Positive Airway Pressure (ICD-10-PCS; 2022-01-29)
PROC: 0W9B3ZZ Drainage of Left Pleural Cavity, Percutaneous Approach (ICD-10-PCS; 2022-01-30)
PROC: 5A09357 Assistance with Respiratory Ventilation, Less than 24 Consecutive Hours, Continuous Positive Airway Pressure (ICD-10-PCS; 2022-01-30)
PROC: 5A09357 Assistance with Respiratory Ventilation, Less than 24 Consecutive Hours, Continuous Positive Airway Pressure (ICD-10-PCS; 2022-01-31)
PROC: 5A09357 Assistance with Respiratory Ventilation, Less than 24 Consecutive Hours, Continuous Positive Airway Pressure (ICD-10-PCS; 2022-02-01)
PROC: 02HV33Z Insertion of Infusion Device into Superior Vena Cava, Percutaneous Approach (ICD-10-PCS; 2022-02-02)
PROC: 5A09357 Assistance with Respiratory Ventilation, Less than 24 Consecutive Hours, Continuous Positive Airway Pressure (ICD-10-PCS; 2022-02-02)
PROC: 0W993ZZ Drainage of Right Pleural Cavity, Percutaneous Approach (ICD-10-PCS; 2022-02-03)
PROC: 5A09357 Assistance with Respiratory Ventilation, Less than 24 Consecutive Hours, Continuous Positive Airway Pressure (ICD-10-PCS; 2022-02-03)
PROC: 5A09357 Assistance with Respiratory Ventilation, Less than 24 Consecutive Hours, Continuous Positive Airway Pressure (ICD-10-PCS; 2022-02-04)
PROC: 5A09357 Assistance with Respiratory Ventilation, Less than 24 Consecutive Hours, Continuous Positive Airway Pressure (ICD-10-PCS; 2022-02-05)
PROC: 0W9930Z Drainage of Right Pleural Cavity with Drainage Device, Percutaneous Approach (ICD-10-PCS; 2022-02-06)
PROC: 5A09357 Assistance with Respiratory Ventilation, Less than 24 Consecutive Hours, Continuous Positive Airway Pressure (ICD-10-PCS; 2022-02-06)
PROC: 5A09357 Assistance with Respiratory Ventilation, Less than 24 Consecutive Hours, Continuous Positive Airway Pressure (ICD-10-PCS; 2022-02-07)
PROC: 5A09357 Assistance with Respiratory Ventilation, Less than 24 Consecutive Hours, Continuous Positive Airway Pressure (ICD-10-PCS; 2022-02-08)
DX: J96.21 Acute and chronic respiratory failure with hypoxia (principal); I50.43 Acute on chronic combined systolic (congestive) and diastolic (congestive) heart failure; I47.2 Ventricular tachycardia; N17.9 Acute kidney failure, unspecified; I42.8 Other cardiomyopathies; J18.9 Pneumonia, unspecified organism; I48.91 Unspecified atrial fibrillation; Z68.43 Body mass index [BMI] 50.0-59.9, adult; E66.01 Morbid (severe) obesity due to excess calories; E87.6 Hypokalemia; J98.11 Atelectasis; N39.0 Urinary tract infection, site not specified; E11.9 Type 2 diabetes mellitus without complications; G89.29 Other chronic pain; F41.9 Anxiety disorder, unspecified; I44.7 Left bundle-branch block, unspecified; Z20.822 Contact with and (suspected) exposure to COVID-19; Z74.01 Bed confinement status; Z79.01 Long term (current) use of anticoagulants; Z79.899 Other long term (current) drug therapy; Z86.16 Personal history of COVID-19; Z86.73 Personal history of transient ischemic attack (TIA), and cerebral infarction without residual deficits; Z91.14 Patient's other noncompliance with medication regimen
CPT/HCPCS: 36415; 36569; 36600; 71045; 76604; 76942; 80048; 80053; 80061; 80307; 81001; 82728; 82805; 82962; 83036; 83605; 83615; 83735; 83880; 84100; 84484; 85025; 85379; 85610; 85730; 86141; 86850; 86900; 86901; 87040; 87081; 87205; 89051; 93005; 93306; 93970; 94640; 94660; 96365; 96367; 96375; 96376; 97110; 97530; 99291; G0378; J0696; J1815; J2001; J7060

== ENCOUNTER 2022-02-22 13:20 | Inpatient (IN) | payer MEDICAID ==
[~2022-02-22] VITALS: Ht 182.9 cm; Wt 191.0 kg
[~2022-02-22 13:20] MED LIST changes: +ALBUAER3 IN; +AMIO200T33 PO; -AMIODARONE 450mg/250ml AE 250 ML IV SCH; +APIX5TAB PO; +ASCO500T11 PO; +ASPI-543 PO; +ATOR20TA50 PO; +BUME1TAB25 PO; +CAR3125T PO; +CHOL20007 PO; +CLON-853 PO; +DOXY-286 PO; +GABA300C10 PO; +HYDR-4798 PO; +IPRIH INH; +LOSA-69 PO; +METF-370 PO; +OMEP20TA PO; +PANT40T PO; +ZOLP10TA PO
[2022-02-22] MEDS ORDERED: HYDROcodone-ACET 10/325MG TAB PO ONE (16:45)
[2022-02-22 17:23] LABS: Basophils # (auto) 0.1 10 ^3/uL (0-0.2); Basophils % (auto) 1.1 % (0.0-2.0); Eosinophils # (auto) 0.1 10 ^3/uL (0-0.8); Eosinophils % (auto) 0.7 % (0.0-7.0); Hematocrit 38.4 % (41.0-53.0); Hemoglobin 12.7 g/dL (13.5-17.5); Lymphocytes # (auto) 1.9 10 ^3/uL (0.4-5.4); Lymphocytes % (auto) 24.9 % (10.0-50.0); Mean Corpuscular Hemoglobin 28.4 pg (28.0-32.0); Monocytes # (auto) 0.6 10 ^3/uL (0-1.3); Monocytes % (auto) 7.6 % (0.0-12.0); Neutrophils # (auto) 5.1 10 ^3/uL (1.6-8.6); Neutrophils % (auto) 65.7 % (37.0-80.0); Nucleated Red Blood Cells % 0.1 %; Red Blood Cells 4.46 10^6/uL (4.5-5.90); Red Cell Distribution Width 15.4 % (11.8-14.3); White Blood Cell 7.7 10^3/uL (4.4-10.8)
[2022-02-22 17:36] LABS: Albumin 2.7 g/dL (3.4-5.0); BUN/Creatinine Ratio 12.8; Calcium 8.6 mg/dL (8.5-10.1); Potassium 3.8 mmol/L (3.5-5.1)
[2022-02-22 17:40] LABS: Bilirubin, Total 0.8 mg/dL (0.2-1.0); Total Protein 6.7 g/dL (6.4-8.2)
[2022-02-22] MEDS ORDERED: ACETAMINOPHEN 325 MG TAB PO PRN (18:15)
[2022-02-22] MEDS ORDERED: MORPHINE SULFATE INJECTION 2 MG/ML SYRG IV PRN (18:15)
[2022-02-22] MEDS ORDERED: NITROGLYCERIN 0.4 MG SL TAB SL PRN (18:15)
[2022-02-22] MEDS ORDERED: HYDROcodone-ACET 5/325MG TAB PO PRN (18:15)
[2022-02-22] MEDS ORDERED: DEXTROSE (50%) 50ML SYRG IV PRN (22:30)
[2022-02-22] MEDS ORDERED: ONDANSETRON HCL 4 MG/2 ML VIAL IV PRN (22:30)
[2022-02-22] MEDS: MORPHINE SULFATE 4 MG/ML SYR/VIAL IV PRN (23:00)
[2022-02-23] VITALS (7 sets, daily range): BP systolic 90–127; BP diastolic 51–90
[2022-02-23] MEDS: ALPRAZolam 0.5 MG TAB PO PRN ×3 (01:07→20:37)
[2022-02-23] MEDS ORDERED: ALBUTEROL SULF 2.5 MG/0.5ML(0.5%) NEB SOLN NEB PRN (04:45)
[2022-02-23 05:19] LABS: Basophils # (auto) 0.1 10 ^3/uL (0-0.2); Basophils % (auto) 0.7 % (0.0-2.0); Eosinophils # (auto) 0 10 ^3/uL (0-0.8); Eosinophils % (auto) 0.4 % (0.0-7.0); Hematocrit 37.3 % (41.0-53.0); Hemoglobin 12.4 g/dL (13.5-17.5); Lymphocytes # (auto) 1.8 10 ^3/uL (0.4-5.4); Lymphocytes % (auto) 23.6 % (10.0-50.0); Mean Corpuscular Hemoglobin 28.4 pg (28.0-32.0); Mean Corpuscular Hgb Conc. 33.2 g/dL (32.0-36.0); Mean Corpuscular Volume 85.4 fL (80.0-100.0); Monocytes # (auto) 0.6 10 ^3/uL (0-1.3); Monocytes % (auto) 7.3 % (0.0-12.0); Neutrophils # (auto) 5.3 10 ^3/uL (1.6-8.6); Red Blood Cells 4.37 10^6/uL (4.5-5.90); Red Cell Distribution Width 15.5 % (11.8-14.3); White Blood Cell 7.8 10^3/uL (4.4-10.8)
[2022-02-23 05:41] LABS: Albumin 2.6 g/dL (3.4-5.0); BUN/Creatinine Ratio 14.9; Calcium 8.6 mg/dL (8.5-10.1)
[2022-02-23 05:44] LABS: Total Protein 6.2 g/dL (6.4-8.2)
[2022-02-23] MEDS: GABAPENTIN 300 MG CAP PO SCH ×3 (05:52→23:17)
[2022-02-23] MEDS: InsuLIN REG 1unit/0.01ml Soln (100units/ml) SC SCH ×4 (06:03→22:00)
[2022-02-23] MEDS: ACCU-CHEK COMFORT CURVE STRIP VI SCH ×4 (07:00→22:00)
[2022-02-23] MEDS: AMIODARONE HCL 200 MG TAB PO SCH ×2 (10:00→23:16)
[2022-02-23] MEDS: PANTOPRAZOLE 40 MG TAB PO SCH (10:00)
[2022-02-23] MEDS: ASCORBIC ACID 500 MG TAB PO SCH ×2 (10:00→23:17)
[2022-02-23] MEDS: DOXYCYCLINE 100 MG TAB/CAP PO SCH ×2 (10:00→23:18)
[2022-02-23] MEDS: CARVEDILOL 3.125 MG TAB PO SCH ×2 (10:00→22:00)
[2022-02-23] MEDS: metFORMIN HYDROCHLORIDE 500 MG TAB PO SCH ×2 (10:00→23:17)
[2022-02-23] MEDS: LOSARTAN POTASSIUM 50 MG TAB PO SCH (10:00)
[2022-02-23] MEDS: APIXABAN 5 MG TAB PO SCH ×2 (10:00→23:19)
[2022-02-23] MEDS: ASPirin-EC 81 mg tab PO SCH (10:00)
[2022-02-23] MEDS: BUMETANIDE 2.5mg/10ml (0.25 mg/ml) INJ IV SCH ×2 (12:30→17:51)
[2022-02-23] MEDS: MORPHINE SULFATE 4 MG/ML SYR/VIAL IV PRN (13:08)
[2022-02-23] MEDS: ATORVASTATIN 20 MG TAB PO SCH (23:18)
[2022-02-23] MEDS: NYSTATIN TOPICAL POWDER 15GM TOP SCH (23:21)
[2022-02-23] MEDS: HYDROcodone-ACET 10/325MG TAB PO PRN (23:21)
[2022-02-24 05:00] VITALS: BP 91/44
[2022-02-24] MEDS: BUMETANIDE 2.5mg/10ml (0.25 mg/ml) INJ IV SCH ×2 (06:00→18:00)
[2022-02-24] MEDS: GABAPENTIN 300 MG CAP PO SCH ×3 (06:27→22:37)
[2022-02-24] MEDS: ACCU-CHEK COMFORT CURVE STRIP VI SCH ×4 (06:34→21:10)
[2022-02-24] MEDS: InsuLIN REG 1unit/0.01ml Soln (100units/ml) SC SCH ×4 (06:34→21:10)
[2022-02-24] MEDS: ALPRAZolam 0.5 MG TAB PO PRN ×2 (06:38→14:32)
[2022-02-24 08:00] VITALS: BP 129/78
[2022-02-24 08:35] VITALS: BP 113/47
[2022-02-24] MEDS: DOXYCYCLINE 100 MG TAB/CAP PO SCH ×2 (09:30→22:38)
[2022-02-24] MEDS: APIXABAN 5 MG TAB PO SCH ×2 (09:30→22:36)
[2022-02-24] MEDS: ASPirin-EC 81 mg tab PO SCH (09:30)
[2022-02-24] MEDS: LOSARTAN POTASSIUM 50 MG TAB PO SCH (09:30)
[2022-02-24] MEDS: metFORMIN HYDROCHLORIDE 500 MG TAB PO SCH ×2 (09:31→22:37)
[2022-02-24] MEDS: CARVEDILOL 3.125 MG TAB PO SCH ×2 (09:31→22:36)
[2022-02-24] MEDS: PANTOPRAZOLE 40 MG TAB PO SCH (09:31)
[2022-02-24] MEDS: ASCORBIC ACID 500 MG TAB PO SCH ×2 (09:31→22:38)
[2022-02-24] MEDS: AMIODARONE HCL 200 MG TAB PO SCH ×2 (09:31→22:35)
[2022-02-24] MEDS: NYSTATIN TOPICAL POWDER 15GM TOP SCH ×2 (09:46→22:39)
[2022-02-24] MEDS: HYDROcodone-ACET 10/325MG TAB PO PRN (09:46)
[2022-02-24 12:45] VITALS: BP 89/55
[2022-02-24 22:00] VITALS: BP 110/61
[2022-02-24] MEDS: ATORVASTATIN 20 MG TAB PO SCH (22:37)
[2022-02-25] MEDS: HYDROcodone-ACET 10/325MG TAB PO PRN ×3 (00:01→17:19)
[2022-02-25] MEDS: ALPRAZolam 0.5 MG TAB PO PRN ×2 (02:19→10:59)
[2022-02-25 03:46] VITALS: BP 110/55
[2022-02-25 05:00] VITALS: BP 138/67
[2022-02-25] MEDS: GABAPENTIN 300 MG CAP PO SCH ×3 (06:18→22:59)
[2022-02-25] MEDS: BUMETANIDE 2.5mg/10ml (0.25 mg/ml) INJ IV SCH ×2 (06:18→17:20)
[2022-02-25] MEDS: InsuLIN REG 1unit/0.01ml Soln (100units/ml) SC SCH ×4 (06:19→23:01)
[2022-02-25] MEDS: ACCU-CHEK COMFORT CURVE STRIP VI SCH ×4 (06:19→23:00)
[2022-02-25 08:40] VITALS: BP 99/57
[2022-02-25] MEDS: LOSARTAN POTASSIUM 50 MG TAB PO SCH (09:28)
[2022-02-25] MEDS: PANTOPRAZOLE 40 MG TAB PO SCH (09:29)
[2022-02-25] MEDS: DOXYCYCLINE 100 MG TAB/CAP PO SCH ×2 (09:29→22:59)
[2022-02-25] MEDS: ASPirin-EC 81 mg tab PO SCH (09:29)
[2022-02-25] MEDS: APIXABAN 5 MG TAB PO SCH ×2 (09:29→22:58)
[2022-02-25] MEDS: CARVEDILOL 3.125 MG TAB PO SCH ×2 (09:30→22:00)
[2022-02-25] MEDS: metFORMIN HYDROCHLORIDE 500 MG TAB PO SCH ×2 (09:30→22:59)
[2022-02-25] MEDS: AMIODARONE HCL 200 MG TAB PO SCH ×2 (09:30→22:56)
[2022-02-25] MEDS: ASCORBIC ACID 500 MG TAB PO SCH ×2 (09:30→23:00)
[2022-02-25] MEDS: NYSTATIN TOPICAL POWDER 15GM TOP SCH ×2 (09:31→23:00)
[2022-02-25] MEDS ORDERED: ALBUAER3 IN (10:22)
[2022-02-25] MEDS ORDERED: IPRIH INH (10:22)
[2022-02-25] MEDS ORDERED: CAL025T GT (10:22)
[2022-02-25 13:00] VITALS: BP 118/64
[2022-02-25 16:20] VITALS: BP_SYST 100; BP_SYST 85; BP_DIAS 57; BP_DIAS 59
[2022-02-25 22:00] VITALS: BP 99/58
[2022-02-25] MEDS: ATORVASTATIN 20 MG TAB PO SCH (22:59)
[2022-02-26] VITALS (7 sets, daily range): BP systolic 85–109; BP diastolic 50–89
[2022-02-26] MEDS: HYDROcodone-ACET 10/325MG TAB PO PRN ×3 (01:16→22:15)
[2022-02-26] MEDS: BUMETANIDE 2.5mg/10ml (0.25 mg/ml) INJ IV SCH ×2 (06:48→17:28)
[2022-02-26] MEDS: GABAPENTIN 300 MG CAP PO SCH ×3 (06:49→22:15)
[2022-02-26] MEDS: InsuLIN REG 1unit/0.01ml Soln (100units/ml) SC SCH ×4 (06:49→23:01)
[2022-02-26] MEDS: ACCU-CHEK COMFORT CURVE STRIP VI SCH ×4 (06:49→22:16)
[2022-02-26] MEDS: ASPirin-EC 81 mg tab PO SCH (09:32)
[2022-02-26] MEDS: LOSARTAN POTASSIUM 50 MG TAB PO SCH (09:32)
[2022-02-26] MEDS: DOXYCYCLINE 100 MG TAB/CAP PO SCH ×2 (09:32→22:14)
[2022-02-26] MEDS: CARVEDILOL 3.125 MG TAB PO SCH ×2 (09:33→22:00)
[2022-02-26] MEDS: ASCORBIC ACID 500 MG TAB PO SCH ×2 (09:33→22:14)
[2022-02-26] MEDS: metFORMIN HYDROCHLORIDE 500 MG TAB PO SCH ×2 (09:33→22:14)
[2022-02-26] MEDS: PANTOPRAZOLE 40 MG TAB PO SCH (09:34)
[2022-02-26] MEDS: APIXABAN 5 MG TAB PO SCH ×2 (09:34→22:15)
[2022-02-26] MEDS: AMIODARONE HCL 200 MG TAB PO SCH ×2 (09:34→22:15)
[2022-02-26] MEDS: NYSTATIN TOPICAL POWDER 15GM TOP SCH ×2 (09:34→22:16)
[2022-02-26] MEDS: ALPRAZolam 0.5 MG TAB PO PRN ×2 (09:55→18:18)
[2022-02-26 14:44] LABS: Basophils # (auto) 0.1 10 ^3/uL (0-0.2); Basophils % (auto) 1.4 % (0.0-2.0); Eosinophils # (auto) 0.1 10 ^3/uL (0-0.8); Eosinophils % (auto) 1.4 % (0.0-7.0); Hematocrit 37.4 % (41.0-53.0); Hemoglobin 12.4 g/dL (13.5-17.5); Lymphocytes # (auto) 2.6 10 ^3/uL (0.4-5.4); Lymphocytes % (auto) 32.2 % (10.0-50.0); Mean Corpuscular Hemoglobin 28.5 pg (28.0-32.0); Mean Corpuscular Hgb Conc. 33.3 g/dL (32.0-36.0); Mean Corpuscular Volume 85.6 fL (80.0-100.0); Monocytes # (auto) 0.6 10 ^3/uL (0-1.3); Monocytes % (auto) 7.5 % (0.0-12.0); Neutrophils # (auto) 4.6 10 ^3/uL (1.6-8.6); Neutrophils % (auto) 57.5 % (37.0-80.0); Nucleated Red Blood Cells % 0.1 %; Red Blood Cells 4.37 10^6/uL (4.5-5.90); Red Cell Distribution Width 15.7 % (11.8-14.3); White Blood Cell 8.1 10^3/uL (4.4-10.8)
[2022-02-26 15:01] LABS: Albumin 2.5 g/dL (3.4-5.0); Calcium 7.8 mg/dL (8.5-10.1); Magnesium 1.4 mg/dL (1.6-2.6); Potassium 3.2 mmol/L (3.5-5.1)
[2022-02-26 15:04] LABS: BUN/Creatinine Ratio 13.7; Bilirubin, Total 0.8 mg/dL (0.2-1.0); Phosphorus 4.6 mg/dL (2.5-4.90); Total Protein 6.4 g/dL (6.4-8.2)
[2022-02-26] MEDS: ATORVASTATIN 20 MG TAB PO SCH (22:14)
[2022-02-27] MEDS: ALPRAZolam 0.5 MG TAB PO PRN ×3 (02:31→22:05)
[2022-02-27 05:00] VITALS: BP 87/45
[2022-02-27] MEDS: BUMETANIDE 2.5mg/10ml (0.25 mg/ml) INJ IV SCH ×2 (06:00→17:47)
[2022-02-27] MEDS: GABAPENTIN 300 MG CAP PO SCH ×3 (06:58→21:49)
[2022-02-27] MEDS: InsuLIN REG 1unit/0.01ml Soln (100units/ml) SC SCH ×4 (07:00→21:51)
[2022-02-27] MEDS: ACCU-CHEK COMFORT CURVE STRIP VI SCH ×4 (07:10→22:05)
[2022-02-27 09:00] VITALS: BP 95/47
[2022-02-27] MEDS: HYDROcodone-ACET 10/325MG TAB PO PRN ×2 (09:05→18:44)
[2022-02-27] MEDS: DOXYCYCLINE 100 MG TAB/CAP PO SCH ×2 (09:26→21:49)
[2022-02-27] MEDS: ASCORBIC ACID 500 MG TAB PO SCH ×2 (09:26→21:50)
[2022-02-27] MEDS: metFORMIN HYDROCHLORIDE 500 MG TAB PO SCH ×2 (09:26→21:50)
[2022-02-27] MEDS: APIXABAN 5 MG TAB PO SCH ×2 (09:27→21:49)
[2022-02-27] MEDS: PANTOPRAZOLE 40 MG TAB PO SCH (09:27)
[2022-02-27] MEDS: CARVEDILOL 3.125 MG TAB PO SCH ×2 (09:27→22:00)
[2022-02-27] MEDS: AMIODARONE HCL 200 MG TAB PO SCH ×2 (09:27→21:49)
[2022-02-27] MEDS: ASPirin-EC 81 mg tab PO SCH (09:27)
[2022-02-27] MEDS: LOSARTAN POTASSIUM 50 MG TAB PO SCH (09:28)
[2022-02-27] MEDS: NYSTATIN TOPICAL POWDER 15GM TOP SCH (10:00)
[2022-02-27 13:00] VITALS: BP 86/56
[2022-02-27 17:01] VITALS: BP 85/60
[2022-02-27] MEDS: ATORVASTATIN 20 MG TAB PO SCH (21:50)
[2022-02-27 22:00] VITALS: BP 105/64
[2022-02-28] MEDS: HYDROcodone-ACET 10/325MG TAB PO PRN ×2 (01:21→18:41)
[2022-02-28] MEDS: NYSTATIN TOPICAL POWDER 15GM TOP SCH ×3 (01:22→22:19)
[2022-02-28 05:00] VITALS: BP 100/59
[2022-02-28] MEDS: BUMETANIDE 2.5mg/10ml (0.25 mg/ml) INJ IV SCH ×2 (05:50→18:00)
[2022-02-28] MEDS: GABAPENTIN 300 MG CAP PO SCH ×3 (05:51→22:05)
[2022-02-28] MEDS: InsuLIN REG 1unit/0.01ml Soln (100units/ml) SC SCH ×4 (06:27→22:07)
[2022-02-28] MEDS: ACCU-CHEK COMFORT CURVE STRIP VI SCH ×4 (06:27→22:05)
[2022-02-28] MEDS: ASPirin-EC 81 mg tab PO SCH (09:42)
[2022-02-28] MEDS: metFORMIN HYDROCHLORIDE 500 MG TAB PO SCH ×2 (09:42→22:03)
[2022-02-28] MEDS: DOXYCYCLINE 100 MG TAB/CAP PO SCH ×2 (09:42→22:03)
[2022-02-28] MEDS: PANTOPRAZOLE 40 MG TAB PO SCH (09:43)
[2022-02-28] MEDS: ASCORBIC ACID 500 MG TAB PO SCH ×2 (09:43→22:03)
[2022-02-28] MEDS: APIXABAN 5 MG TAB PO SCH ×2 (09:43→22:03)
[2022-02-28] MEDS: AMIODARONE HCL 200 MG TAB PO SCH ×2 (09:43→22:03)
[2022-02-28] MEDS: CARVEDILOL 3.125 MG TAB PO SCH ×2 (09:44→22:04)
[2022-02-28] MEDS: LOSARTAN POTASSIUM 50 MG TAB PO SCH (09:45)
[2022-02-28] MEDS: ALPRAZolam 0.5 MG TAB PO PRN (09:53)
[2022-02-28 09:56] VITALS: BP 146/80
[2022-02-28 13:36] VITALS: BP 165/42
[2022-02-28 15:57] VITALS: BP 89/59
[2022-02-28 22:00] VITALS: BP 110/71
[2022-02-28] MEDS: ATORVASTATIN 20 MG TAB PO SCH (22:03)
[2022-03-01] MEDS: HYDROcodone-ACET 10/325MG TAB PO PRN ×4 (00:04→23:54)
[2022-03-01] MEDS: ALPRAZolam 0.5 MG TAB PO PRN ×3 (01:59→18:57)
[2022-03-01 05:00] VITALS: BP 113/66
[2022-03-01 05:40] LABS: Basophils # (auto) 0.1 10 ^3/uL (0-0.2); Basophils % (auto) 0.8 % (0.0-2.0); Eosinophils # (auto) 0.1 10 ^3/uL (0-0.8); Eosinophils % (auto) 1.1 % (0.0-7.0); Hematocrit 36.1 % (41.0-53.0); Lymphocytes # (auto) 2.9 10 ^3/uL (0.4-5.4); Lymphocytes % (auto) 34.1 % (10.0-50.0); Mean Corpuscular Hemoglobin 28.2 pg (28.0-32.0); Mean Corpuscular Hgb Conc. 33.2 g/dL (32.0-36.0); Monocytes # (auto) 0.8 10 ^3/uL (0-1.3); Neutrophils # (auto) 4.6 10 ^3/uL (1.6-8.6); Nucleated Red Blood Cells % 0.1 %; Red Blood Cells 4.24 10^6/uL (4.5-5.90); Red Cell Distribution Width 15.5 % (11.8-14.3); White Blood Cell 8.4 10^3/uL (4.4-10.8)
[2022-03-01 05:50] LABS: Calcium 8.1 mg/dL (8.5-10.1); Magnesium 1.4 mg/dL (1.6-2.6); Potassium 3.6 mmol/L (3.5-5.1)
[2022-03-01] MEDS: BUMETANIDE 2.5mg/10ml (0.25 mg/ml) INJ IV SCH ×2 (05:54→18:00)
[2022-03-01] MEDS: GABAPENTIN 300 MG CAP PO SCH ×3 (05:55→21:38)
[2022-03-01] MEDS: ACCU-CHEK COMFORT CURVE STRIP VI SCH ×4 (05:55→22:00)
[2022-03-01] MEDS: InsuLIN REG 1unit/0.01ml Soln (100units/ml) SC SCH ×4 (07:00→22:38)
[2022-03-01 09:00] VITALS: BP 98/68
[2022-03-01] MEDS: NYSTATIN TOPICAL POWDER 15GM TOP SCH ×2 (10:00→22:36)
[2022-03-01] MEDS: DOXYCYCLINE 100 MG TAB/CAP PO SCH ×2 (10:19→21:38)
[2022-03-01] MEDS: ASPirin-EC 81 mg tab PO SCH (10:20)
[2022-03-01] MEDS: metFORMIN HYDROCHLORIDE 500 MG TAB PO SCH ×2 (10:20→21:39)
[2022-03-01] MEDS: ASCORBIC ACID 500 MG TAB PO SCH ×2 (10:21→21:38)
[2022-03-01] MEDS: PANTOPRAZOLE 40 MG TAB PO SCH (10:22)
[2022-03-01] MEDS: CARVEDILOL 3.125 MG TAB PO SCH ×2 (10:23→22:00)
[2022-03-01] MEDS: LOSARTAN POTASSIUM 50 MG TAB PO SCH (10:23)
[2022-03-01] MEDS: APIXABAN 5 MG TAB PO SCH ×2 (10:24→21:38)
[2022-03-01] MEDS: AMIODARONE HCL 200 MG TAB PO SCH ×2 (10:24→21:39)
[2022-03-01 13:00] VITALS: BP 95/48
[2022-03-01 17:00] VITALS: BP 100/51
[2022-03-01] MEDS: ATORVASTATIN 20 MG TAB PO SCH (21:39)
[2022-03-01 22:00] VITALS: BP 95/50
[2022-03-02] VITALS (7 sets, daily range): BP systolic 91–101; BP diastolic 47–64
[2022-03-02] MEDS: ALPRAZolam 0.5 MG TAB PO PRN ×3 (02:10→18:28)
[2022-03-02] MEDS: GABAPENTIN 300 MG CAP PO SCH ×3 (05:28→22:24)
[2022-03-02] MEDS: BUMETANIDE 2.5mg/10ml (0.25 mg/ml) INJ IV SCH ×2 (06:00→17:51)
[2022-03-02] MEDS: ACCU-CHEK COMFORT CURVE STRIP VI SCH ×4 (06:39→21:56)
[2022-03-02] MEDS: InsuLIN REG 1unit/0.01ml Soln (100units/ml) SC SCH ×4 (06:39→21:57)
[2022-03-02] MEDS: LOSARTAN POTASSIUM 50 MG TAB PO SCH (09:03)
[2022-03-02] MEDS: CARVEDILOL 3.125 MG TAB PO SCH ×2 (09:03→22:00)
[2022-03-02] MEDS: APIXABAN 5 MG TAB PO SCH ×2 (09:04→21:55)
[2022-03-02] MEDS: metFORMIN HYDROCHLORIDE 500 MG TAB PO SCH ×2 (09:04→21:55)
[2022-03-02] MEDS: ASPirin-EC 81 mg tab PO SCH (09:04)
[2022-03-02] MEDS: NYSTATIN TOPICAL POWDER 15GM TOP SCH ×2 (09:04→21:56)
[2022-03-02] MEDS: ASCORBIC ACID 500 MG TAB PO SCH ×2 (09:04→21:56)
[2022-03-02] MEDS: DOXYCYCLINE 100 MG TAB/CAP PO SCH ×2 (09:04→21:56)
[2022-03-02] MEDS: PANTOPRAZOLE 40 MG TAB PO SCH (09:04)
[2022-03-02] MEDS: AMIODARONE HCL 200 MG TAB PO SCH ×2 (09:04→21:55)
[2022-03-02] MEDS: HYDROcodone-ACET 10/325MG TAB PO PRN ×3 (09:56→23:57)
[2022-03-02] MEDS: ATORVASTATIN 20 MG TAB PO SCH (21:56)
[2022-03-03] VITALS (7 sets, daily range): BP systolic 93–128; BP diastolic 47–70
[2022-03-03] MEDS: ALPRAZolam 0.5 MG TAB PO PRN ×2 (02:02→10:38)
[2022-03-03] MEDS: BUMETANIDE 2.5mg/10ml (0.25 mg/ml) INJ IV SCH (06:00)
[2022-03-03] MEDS: ACCU-CHEK COMFORT CURVE STRIP VI SCH ×4 (06:52→22:00)
[2022-03-03] MEDS: GABAPENTIN 300 MG CAP PO SCH ×3 (06:52→21:59)
[2022-03-03] MEDS: InsuLIN REG 1unit/0.01ml Soln (100units/ml) SC SCH ×4 (07:00→22:00)
[2022-03-03] MEDS: ASPirin-EC 81 mg tab PO SCH (09:23)
[2022-03-03] MEDS: APIXABAN 5 MG TAB PO SCH ×2 (09:23→21:59)
[2022-03-03] MEDS: CARVEDILOL 3.125 MG TAB PO SCH ×2 (09:23→22:00)
[2022-03-03] MEDS: AMIODARONE HCL 200 MG TAB PO SCH ×2 (09:23→21:59)
[2022-03-03] MEDS: metFORMIN HYDROCHLORIDE 500 MG TAB PO SCH ×2 (09:23→17:02)
[2022-03-03] MEDS: LOSARTAN POTASSIUM 50 MG TAB PO SCH (09:23)
[2022-03-03] MEDS: DOXYCYCLINE 100 MG TAB/CAP PO SCH ×2 (09:24→21:59)
[2022-03-03] MEDS: PANTOPRAZOLE 40 MG TAB PO SCH (09:24)
[2022-03-03] MEDS: ASCORBIC ACID 500 MG TAB PO SCH ×2 (09:24→22:00)
[2022-03-03] MEDS: NYSTATIN TOPICAL POWDER 15GM TOP SCH ×2 (09:24→22:02)
[2022-03-03] MEDS: HYDROcodone-ACET 10/325MG TAB PO PRN ×3 (09:30→22:01)
[2022-03-03 15:12] LABS: Phosphorus 3.6 mg/dL (2.5-4.90)
[2022-03-03 15:38] LABS: Magnesium 0.9 mg/dL (1.6-2.6)
[2022-03-03] MEDS: MAGNESIUM SULFATE 1GM/100ML 100 ML IV SCH ×4 (17:00→19:20)
[2022-03-03] MEDS: BUMETANIDE 1 MG TAB PO SCH ×2 (17:01→18:00)
[2022-03-03] MEDS: ATORVASTATIN 20 MG TAB PO SCH (21:59)
[2022-03-03] MEDS ORDERED: MAGNESIUM SULFATE 1GM/100ML 100 ML IV ONE (22:30)
[2022-03-03] MEDS ORDERED: MAGNESIUM SULFATE 1GM/100ML 100 ML IV SCH (23:00)
[2022-03-04] MEDS: ALPRAZolam 0.5 MG TAB PO PRN ×3 (02:15→18:48)
[2022-03-04 03:24] VITALS: BP 108/70
[2022-03-04 05:06] VITALS: BP 111/65
[2022-03-04 05:25] LABS: Basophils # (auto) 0 10 ^3/uL (0-0.2); Basophils % (auto) 0.7 % (0.0-2.0); Eosinophils # (auto) 0.1 10 ^3/uL (0-0.8); Eosinophils % (auto) 1.5 % (0.0-7.0); Hematocrit 33.9 % (41.0-53.0); Hemoglobin 11.6 g/dL (13.5-17.5); Lymphocytes # (auto) 2.3 10 ^3/uL (0.4-5.4); Lymphocytes % (auto) 32.9 % (10.0-50.0); Mean Corpuscular Hemoglobin 28.8 pg (28.0-32.0); Mean Corpuscular Hgb Conc. 34.1 g/dL (32.0-36.0); Mean Corpuscular Volume 84.4 fL (80.0-100.0); Monocytes # (auto) 0.6 10 ^3/uL (0-1.3); Monocytes % (auto) 8.3 % (0.0-12.0); Neutrophils # (auto) 3.9 10 ^3/uL (1.6-8.6); Neutrophils % (auto) 56.6 % (37.0-80.0); Nucleated Red Blood Cells % 0.1 %; Red Blood Cells 4.02 10^6/uL (4.5-5.90); Red Cell Distribution Width 15.1 % (11.8-14.3); White Blood Cell 6.9 10^3/uL (4.4-10.8)
[2022-03-04 05:45] LABS: Potassium 3.4 mmol/L (3.5-5.1)
[2022-03-04 05:49] LABS: Albumin 2.5 g/dL (3.4-5.0); BUN/Creatinine Ratio 18.9; Calcium 7.9 mg/dL (8.5-10.1); Magnesium 1.6 mg/dL (1.6-2.6)
[2022-03-04 05:52] LABS: Bilirubin, Total 0.5 mg/dL (0.2-1.0); Total Protein 6.1 g/dL (6.4-8.2)
[2022-03-04] MEDS: ACCU-CHEK COMFORT CURVE STRIP VI SCH ×4 (06:37→22:41)
[2022-03-04] MEDS: GABAPENTIN 300 MG CAP PO SCH ×3 (06:37→22:40)
[2022-03-04] MEDS: BUMETANIDE 1 MG TAB PO SCH ×2 (06:37→18:00)
[2022-03-04] MEDS: InsuLIN REG 1unit/0.01ml Soln (100units/ml) SC SCH ×4 (06:56→22:00)
[2022-03-04 08:13] VITALS: BP 111/65
[2022-03-04] MEDS: PANTOPRAZOLE 40 MG TAB PO SCH (09:35)
[2022-03-04] MEDS: APIXABAN 5 MG TAB PO SCH ×2 (09:35→22:40)
[2022-03-04] MEDS: metFORMIN HYDROCHLORIDE 500 MG TAB PO SCH ×2 (09:35→18:48)
[2022-03-04] MEDS: ASCORBIC ACID 500 MG TAB PO SCH ×2 (09:35→22:40)
[2022-03-04] MEDS: DOXYCYCLINE 100 MG TAB/CAP PO SCH ×2 (09:36→22:40)
[2022-03-04] MEDS: ASPirin-EC 81 mg tab PO SCH (09:36)
[2022-03-04] MEDS: LOSARTAN POTASSIUM 50 MG TAB PO SCH (09:41)
[2022-03-04] MEDS: HYDROcodone-ACET 10/325MG TAB PO PRN ×2 (09:41→15:10)
[2022-03-04] MEDS: CARVEDILOL 3.125 MG TAB PO SCH ×2 (09:43→22:39)
[2022-03-04] MEDS: NYSTATIN TOPICAL POWDER 15GM TOP SCH ×2 (09:46→22:40)
[2022-03-04] MEDS: AMIODARONE HCL 200 MG TAB PO SCH ×2 (09:46→22:39)
[2022-03-04] MEDS ORDERED: ALPR0.5T8 PO (12:51)
[2022-03-04 18:16] VITALS: BP 99/78
[2022-03-04 20:00] VITALS: BP 93/47
[2022-03-04 22:00] VITALS: BP 117/61
[2022-03-04] MEDS: ATORVASTATIN 20 MG TAB PO SCH (22:40)
[2022-03-05] MEDS: HYDROcodone-ACET 10/325MG TAB PO PRN ×2 (00:32→10:15)
[2022-03-05] MEDS: ALPRAZolam 0.5 MG TAB PO PRN ×2 (02:29→10:51)
[2022-03-05 05:00] VITALS: BP 111/67
[2022-03-05] MEDS: BUMETANIDE 1 MG TAB PO SCH (06:10)
[2022-03-05] MEDS: GABAPENTIN 300 MG CAP PO SCH (06:10)
[2022-03-05] MEDS: ACCU-CHEK COMFORT CURVE STRIP VI SCH (06:11)
[2022-03-05] MEDS: InsuLIN REG 1unit/0.01ml Soln (100units/ml) SC SCH (06:23)
[2022-03-05 08:00] VITALS: BP 98/58
[2022-03-05 08:21] VITALS: BP 93/47
[2022-03-05] MEDS: metFORMIN HYDROCHLORIDE 500 MG TAB PO SCH (10:12)
[2022-03-05] MEDS: PANTOPRAZOLE 40 MG TAB PO SCH (10:13)
[2022-03-05] MEDS: DOXYCYCLINE 100 MG TAB/CAP PO SCH (10:13)
[2022-03-05] MEDS: APIXABAN 5 MG TAB PO SCH (10:13)
[2022-03-05] MEDS: ASPirin-EC 81 mg tab PO SCH (10:13)
[2022-03-05] MEDS: ASCORBIC ACID 500 MG TAB PO SCH (10:14)
[2022-03-05] MEDS: NYSTATIN TOPICAL POWDER 15GM TOP SCH (10:14)
[2022-03-05] MEDS ORDERED: ALPR0.25 PO (11:50)
== END 2022-03-05 12:00 | disposition home health service (06) | DRG 813 ==
LOC: ER 13:20 → EDBD 13:20 → TELE 18:11 → TELE-WESTW 21:16
PROVIDERS: ADMIT Internal Medicine; ATTEND Internal Medicine
PROC: 5A09557 Assistance with Respiratory Ventilation, Greater than 96 Consecutive Hours, Continuous Positive Airway Pressure (ICD-10-PCS; principal; 2022-02-23)
PROC: 0B9N30Z Drainage of Right Pleura with Drainage Device, Percutaneous Approach (ICD-10-PCS; 2022-02-24)
PROC: 0B9N30Z Drainage of Right Pleura with Drainage Device, Percutaneous Approach (ICD-10-PCS; 2022-02-26)
PROC: 0B9N30Z Drainage of Right Pleura with Drainage Device, Percutaneous Approach (ICD-10-PCS; 2022-02-27)
PROC: 0B9N30Z Drainage of Right Pleura with Drainage Device, Percutaneous Approach (ICD-10-PCS; 2022-03-02)
DX: T85.638A Leakage of other specified internal prosthetic devices, implants and grafts, initial encounter (principal); J96.20 Acute and chronic respiratory failure, unspecified whether with hypoxia or hypercapnia; I50.23 Acute on chronic systolic (congestive) heart failure; I42.8 Other cardiomyopathies; J18.9 Pneumonia, unspecified organism; I11.0 Hypertensive heart disease with heart failure; J44.0 Chronic obstructive pulmonary disease with (acute) lower respiratory infection; I69.359 Hemiplegia and hemiparesis following cerebral infarction affecting unspecified side; Z68.43 Body mass index [BMI] 50.0-59.9, adult; K21.9 Gastro-esophageal reflux disease without esophagitis; E78.5 Hyperlipidemia, unspecified; Y83.8 Other surgical procedures as the cause of abnormal reaction of the patient, or of later complication, without mention of misadventure at the time of the procedure; J44.1 Chronic obstructive pulmonary disease with (acute) exacerbation; Z20.822 Contact with and (suspected) exposure to COVID-19; E11.9 Type 2 diabetes mellitus without complications; I44.7 Left bundle-branch block, unspecified; I48.91 Unspecified atrial fibrillation; J96.21 Acute and chronic respiratory failure with hypoxia; E66.01 Morbid (severe) obesity due to excess calories; E83.42 Hypomagnesemia; E87.6 Hypokalemia; Z74.01 Bed confinement status; Z79.01 Long term (current) use of anticoagulants; Z82.3 Family history of stroke; Z82.49 Family history of ischemic heart disease and other diseases of the circulatory system; Z83.3 Family history of diabetes mellitus; Z86.16 Personal history of COVID-19; Z79.899 Other long term (current) drug therapy; Z90.49 Acquired absence of other specified parts of digestive tract; Y92.89 Other specified places as the place of occurrence of the external cause; Z79.84 Long term (current) use of oral hypoglycemic drugs
CPT/HCPCS: 32555; 36415; 71045; 80048; 80053; 82962; 83036; 83735; 83880; 84100; 84484; 85025; 93005; 94660; G0378; J1815

== ENCOUNTER 2022-03-20 21:03 | Inpatient (IN) | payer MEDICAID ==
[~2022-03-20] VITALS: Ht 190.5 cm; Wt 182.2 kg
[~2022-03-20 21:03] MED LIST changes: +ALPR0.25 PO; -DOXY-286 PO
[2022-03-20] MEDS ORDERED: LIDOCAINE 1% HCL (LOCAL ANESTH.) INJ 20ML MDV IJ ONE (21:45)
[2022-03-21] MEDS ORDERED: HYDROcodone-ACET 10/325MG TAB PO ONE (02:30)
[2022-03-21] MEDS ORDERED: ALBUTEROL SULF 2.5 MG/0.5ML(0.5%) NEB SOLN NEB ONE (05:00)
[2022-03-21] MEDS ORDERED: ASPirin 81 mg TAB PO ONE (11:30)
[2022-03-21] MEDS ORDERED: GABAPENTIN 300 MG CAP PO ONE (11:30)
[2022-03-21] MEDS ORDERED: BUMETANIDE 1 MG TAB PO ONE (11:30)
[2022-03-21] MEDS ORDERED: metFORMIN HYDROCHLORIDE 500 MG TAB PO ONE (11:30)
[2022-03-21] MEDS ORDERED: CARVEDILOL 3.125 MG TAB PO ONE (11:30)
[2022-03-21] MEDS ORDERED: ALPRAZolam 0.5 MG TAB PO ONE (12:30)
[2022-03-21] MEDS ORDERED: ONDANSETRON ODT 4 MG TAB PO ONE ×2 (19:15→19:26)
[2022-03-22] MEDS ORDERED: SODIUM CHLORIDE 0.9% 1,000 ML IV ONE (08:15)
[2022-03-22 09:23] LABS: INR 1.82 (0.9-1.15); Partial Thromboplastin Time 33.6 sec (23.6-33.0)
[2022-03-22 09:39] LABS: Albumin 1.9 g/dL (3.4-5.0); Calcium 7.1 mg/dL (8.5-10.1); Magnesium 1.6 mg/dL (1.6-2.6); Potassium 3.4 mmol/L (3.5-5.1)
[2022-03-22 09:56] LABS: BUN/Creatinine Ratio 19.3; Bilirubin, Total 1.3 mg/dL (0.2-1.0)
[2022-03-22 10:49] LABS: Basophils # (auto) 0 10 ^3/uL (0-0.2); Basophils % (auto) 0.3 % (0.0-2.0); Eosinophils # (auto) 0 10 ^3/uL (0-0.8); Eosinophils % (auto) 0.1 % (0.0-7.0); Hematocrit 36.9 % (41.0-53.0); Hemoglobin 11.7 g/dL (13.5-17.5); Lymphocytes # (auto) 1.4 10 ^3/uL (0.4-5.4); Lymphocytes % (auto) 15.5 % (10.0-50.0); Mean Corpuscular Hemoglobin 27.2 pg (28.0-32.0); Mean Corpuscular Hgb Conc. 31.7 g/dL (32.0-36.0); Mean Corpuscular Volume 85.8 fL (80.0-100.0); Monocytes # (auto) 0.4 10 ^3/uL (0-1.3); Monocytes % (auto) 4.6 % (0.0-12.0); Neutrophils # (auto) 7.1 10 ^3/uL (1.6-8.6); Neutrophils % (auto) 79.5 % (37.0-80.0); Nucleated Red Blood Cells % 0.3 %; Red Cell Distribution Width 15.5 % (11.8-14.3); White Blood Cell 8.9 10^3/uL (4.4-10.8)
[2022-03-22] MEDS ORDERED: DOCUSATE SOD 100 MG CAP PO PRN (14:15)
[2022-03-22] MEDS ORDERED: MORPHINE SULFATE INJECTION 2 MG/ML SYRG IV PRN (14:15)
[2022-03-22] MEDS ORDERED: NITROGLYCERIN 0.4 MG SL TAB SL PRN (14:15)
[2022-03-22] MEDS ORDERED: HYDROcodone-ACET 5/325MG TAB PO PRN (14:15)
[2022-03-22] MEDS ORDERED: ONDANSETRON HCL 4 MG/2 ML VIAL IV PRN (14:15)
[2022-03-22 16:30] VITALS: BP 116/75
[2022-03-22 16:50] VITALS: BP 116/75
[2022-03-22 20:00] VITALS: BP 114/66
[2022-03-22] MEDS: MORPHINE SULFATE INJECTION 2 MG/ML SYRG IV PRN (21:36)
[2022-03-22 22:00] VITALS: BP 114/66
[2022-03-23 05:00] VITALS: BP 138/65
[2022-03-23 06:36] LABS: Basophils # (auto) 0 10 ^3/uL (0-0.2); Basophils % (auto) 0.6 % (0.0-2.0); Eosinophils # (auto) 0.1 10 ^3/uL (0-0.8); Eosinophils % (auto) 0.7 % (0.0-7.0); Hematocrit 32.5 % (41.0-53.0); Lymphocytes # (auto) 1.3 10 ^3/uL (0.4-5.4); Lymphocytes % (auto) 17.7 % (10.0-50.0); Mean Corpuscular Hemoglobin 28.5 pg (28.0-32.0); Mean Corpuscular Hgb Conc. 33.8 g/dL (32.0-36.0); Mean Corpuscular Volume 84.2 fL (80.0-100.0); Monocytes # (auto) 0.5 10 ^3/uL (0-1.3); Monocytes % (auto) 6.6 % (0.0-12.0); Neutrophils # (auto) 5.5 10 ^3/uL (1.6-8.6); Neutrophils % (auto) 74.4 % (37.0-80.0); Nucleated Red Blood Cells % 0.2 %; Red Blood Cells 3.86 10^6/uL (4.5-5.90); Red Cell Distribution Width 15.5 % (11.8-14.3); White Blood Cell 7.3 10^3/uL (4.4-10.8)
[2022-03-23 06:52] LABS: Albumin 1.9 g/dL (3.4-5.0); Calcium 6.9 mg/dL (8.5-10.1)
[2022-03-23 07:02] LABS: Bilirubin, Total 1.1 mg/dL (0.2-1.0); Total Protein 5.6 g/dL (6.4-8.2)
[2022-03-23 07:03] LABS: BUN/Creatinine Ratio 26.1
[2022-03-23 07:05] LABS: Potassium 2.9 mmol/L (3.5-5.1)
[2022-03-23 09:00] VITALS: BP 105/66
[2022-03-23] MEDS ORDERED: POTASSIUM CHL 20MEQ/100ML 100 ML IV ONE (09:30)
[2022-03-23] MEDS ORDERED: POTASSIUM CHL 20 Meq TABLET PO ONE (11:45)
[2022-03-23] MEDS ORDERED: BUMETANIDE 2.5mg/10ml (0.25 mg/ml) INJ IV ONE (11:45)
[2022-03-23] MEDS ORDERED: HYDROcodone-ACET 10/325MG TAB PO PRN (12:15)
[2022-03-23] MEDS ORDERED: IPRATROPIUM BROMIDE HFA AER IN PRN (12:15)
[2022-03-23 13:00] VITALS: BP 123/70
[2022-03-23] MEDS: MORPHINE SULFATE INJECTION 2 MG/ML SYRG IV PRN ×2 (13:16→23:22)
[2022-03-23] MEDS: GABAPENTIN 300 MG CAP PO SCH ×2 (14:16→20:51)
[2022-03-23] MEDS: MAGNESIUM SULFATE 1GM/100ML 100 ML IV SCH ×2 (14:20→17:22)
[2022-03-23] MEDS: ALPRAZolam 0.25 MG TAB PO PRN (14:41)
[2022-03-23] MEDS ORDERED: MAGNESIUM SULFATE 1GM/100ML 100 ML IV ONE (16:45)
[2022-03-23 17:00] VITALS: BP 118/78
[2022-03-23] MEDS: BUMETANIDE 2.5mg/10ml (0.25 mg/ml) INJ IV SCH (19:02)
[2022-03-23 19:58] VITALS: BP 118/78
[2022-03-23] MEDS: SOTALOL HCL 80 MG TAB PO SCH (20:45)
[2022-03-23] MEDS: APIXABAN 5 MG TAB PO SCH (20:45)
[2022-03-23] MEDS: KETOROLAC TROMETH 30 MG/ML 1ML VIAL IV PRN (20:46)
[2022-03-23 22:00] VITALS: BP 131/68
[2022-03-23] MEDS ORDERED: CARVEDILOL 3.125 MG TAB PO SCH (22:00)
[2022-03-23] MEDS ORDERED: AMIODARONE HCL 200 MG TAB PO SCH (22:00)
[2022-03-23] MEDS ORDERED: ALBUTEROL SULF 2.5 MG/0.5ML(0.5%) NEB SOLN ONE (22:05)
[2022-03-23] MEDS ORDERED: ALBUTEROL SULF 2.5 MG/0.5ML(0.5%) NEB SOLN NEB PRN (22:45)
[2022-03-23] MEDS ORDERED: IPRATROPIUM BROM 0.5 MG/2.5ML INH SOL NEB PRN (22:45)
[2022-03-24 05:05] VITALS: BP 117/58
[2022-03-24] MEDS: BUMETANIDE 2.5mg/10ml (0.25 mg/ml) INJ IV SCH ×2 (05:41→18:15)
[2022-03-24] MEDS: GABAPENTIN 300 MG CAP PO SCH ×3 (05:41→21:34)
[2022-03-24] MEDS: KETOROLAC TROMETH 30 MG/ML 1ML VIAL IV PRN ×2 (05:42→21:33)
[2022-03-24] MEDS: SOTALOL HCL 80 MG TAB PO SCH ×2 (08:59→21:25)
[2022-03-24] MEDS: APIXABAN 5 MG TAB PO SCH ×2 (08:59→21:33)
[2022-03-24] MEDS: ASPirin-EC 81 mg tab PO SCH (08:59)
[2022-03-24] MEDS: PANTOPRAZOLE 40 MG TAB PO SCH (08:59)
[2022-03-24] MEDS: POTASSIUM CHL 20 Meq TABLET PO SCH (08:59)
[2022-03-24] MEDS: LOSARTAN POTASSIUM 50 MG TAB PO SCH (09:00)
[2022-03-24 09:03] VITALS: BP 96/60
[2022-03-24] MEDS: MORPHINE SULFATE 4 MG/ML SYR/VIAL IV PRN ×2 (09:36→13:42)
[2022-03-24 13:00] VITALS: BP 106/72
[2022-03-24 14:09] LABS: Calcium 7.3 mg/dL (8.5-10.1)
[2022-03-24 14:14] LABS: BUN/Creatinine Ratio 23.8
[2022-03-24 17:00] VITALS: BP 107/48
[2022-03-24] MEDS: MORPHINE SULF 30 mg ER tab PO SCH (21:26)
[2022-03-24] MEDS: ALPRAZolam 0.25 MG TAB PO PRN (21:33)
[2022-03-24 22:00] VITALS: BP 97/57
[2022-03-25] VITALS (7 sets, daily range): BP systolic 86–107; BP diastolic 42–65
[2022-03-25] MEDS: GABAPENTIN 300 MG CAP PO SCH ×4 (06:00→22:29)
[2022-03-25] MEDS: BUMETANIDE 2.5mg/10ml (0.25 mg/ml) INJ IV SCH (06:00)
[2022-03-25 06:05] LABS: Potassium 3.2 mmol/L (3.5-5.1)
[2022-03-25 06:12] LABS: BUN/Creatinine Ratio 21.4; Bilirubin, Total 1.3 mg/dL (0.2-1.0); Calcium 7.4 mg/dL (8.5-10.1); Total Protein 6.1 g/dL (6.4-8.2)
[2022-03-25] MEDS: LOSARTAN POTASSIUM 50 MG TAB PO SCH (10:00)
[2022-03-25] MEDS: ASPirin-EC 81 mg tab PO SCH (10:38)
[2022-03-25] MEDS: APIXABAN 5 MG TAB PO SCH ×2 (10:38→22:28)
[2022-03-25] MEDS: MORPHINE SULF 30 mg ER tab PO SCH ×2 (10:39→22:29)
[2022-03-25] MEDS: SOTALOL HCL 80 MG TAB PO SCH ×2 (10:39→22:28)
[2022-03-25] MEDS: POTASSIUM CHL 20 Meq TABLET PO SCH (10:40)
[2022-03-25] MEDS: PANTOPRAZOLE 40 MG TAB PO SCH (10:40)
[2022-03-25] MEDS: ALPRAZolam 0.25 MG TAB PO PRN (13:36)
[2022-03-26] MEDS: ALPRAZolam 0.25 MG TAB PO PRN (00:11)
[2022-03-26 05:00] VITALS: BP 82/52
[2022-03-26 05:32] LABS: Basophils # (auto) 0 10 ^3/uL (0-0.2); Basophils % (auto) 0.5 % (0.0-2.0); Eosinophils # (auto) 0.1 10 ^3/uL (0-0.8); Eosinophils % (auto) 1.3 % (0.0-7.0); Hematocrit 33.2 % (41.0-53.0); Lymphocytes # (auto) 2.3 10 ^3/uL (0.4-5.4); Lymphocytes % (auto) 24.7 % (10.0-50.0); Mean Corpuscular Hemoglobin 28.6 pg (28.0-32.0); Mean Corpuscular Hgb Conc. 33.2 g/dL (32.0-36.0); Mean Corpuscular Volume 86.1 fL (80.0-100.0); Monocytes % (auto) 11.2 % (0.0-12.0); Neutrophils # (auto) 5.7 10 ^3/uL (1.6-8.6); Neutrophils % (auto) 62.3 % (37.0-80.0); Nucleated Red Blood Cells % 0.1 %; Red Blood Cells 3.86 10^6/uL (4.5-5.90); Red Cell Distribution Width 15.8 % (11.8-14.3); White Blood Cell 9.2 10^3/uL (4.4-10.8)
[2022-03-26 06:02] LABS: Potassium 3.5 mmol/L (3.5-5.1)
[2022-03-26] MEDS: GABAPENTIN 300 MG CAP PO SCH ×3 (06:04→22:00)
[2022-03-26 06:09] LABS: BUN/Creatinine Ratio 23.7; Bilirubin, Total 0.9 mg/dL (0.2-1.0); Calcium 7.6 mg/dL (8.5-10.1); Total Protein 5.9 g/dL (6.4-8.2)
[2022-03-26 09:00] VITALS: BP 102/57
[2022-03-26] MEDS: APIXABAN 5 MG TAB PO SCH ×2 (09:13→22:00)
[2022-03-26] MEDS: ASPirin-EC 81 mg tab PO SCH (09:13)
[2022-03-26] MEDS: LOSARTAN POTASSIUM 50 MG TAB PO SCH (09:13)
[2022-03-26] MEDS: SOTALOL HCL 80 MG TAB PO SCH ×2 (09:13→22:00)
[2022-03-26] MEDS: PANTOPRAZOLE 40 MG TAB PO SCH (09:14)
[2022-03-26] MEDS: MORPHINE SULF 30 mg ER tab PO SCH ×2 (09:14→22:00)
[2022-03-26] MEDS: POTASSIUM CHL 20 Meq TABLET PO SCH (09:14)
[2022-03-26 13:00] VITALS: BP 102/53
[2022-03-26 17:00] VITALS: BP 140/54
[2022-03-26] MEDS ORDERED: ACETAMINOPHEN 325 MG TAB PO PRN (21:30)
[2022-03-26 21:43] VITALS: BP 140/54
[2022-03-26 22:00] VITALS: BP 89/50
[2022-03-27] VITALS (27 sets, daily range): BP systolic 63–117; BP diastolic 30–76
[2022-03-27 05:34] LABS: Calcium 8.1 mg/dL (8.5-10.1); Potassium 4.7 mmol/L (3.5-5.1)
[2022-03-27 05:37] LABS: Bilirubin, Total 1.2 mg/dL (0.2-1.0); Total Protein 6.1 g/dL (6.4-8.2)
[2022-03-27] MEDS: GABAPENTIN 300 MG CAP PO SCH ×3 (06:58→21:33)
[2022-03-27] MEDS: KETOROLAC TROMETH 30 MG/ML 1ML VIAL IV PRN (06:58)
[2022-03-27] MEDS: LOSARTAN POTASSIUM 50 MG TAB PO SCH (09:40)
[2022-03-27] MEDS: PANTOPRAZOLE 40 MG TAB PO SCH (09:43)
[2022-03-27] MEDS: SOTALOL HCL 80 MG TAB PO SCH ×2 (09:45→21:30)
[2022-03-27] MEDS: POTASSIUM CHL 20 Meq TABLET PO SCH (09:45)
[2022-03-27] MEDS: ASPirin-EC 81 mg tab PO SCH (09:48)
[2022-03-27] MEDS: MORPHINE SULF 30 mg ER tab PO SCH ×2 (09:48→21:34)
[2022-03-27] MEDS: APIXABAN 5 MG TAB PO SCH ×2 (09:48→21:33)
[2022-03-27] MEDS: ALBUMIN 25% 100 ML IV SCH ×3 (13:58→23:54)
[2022-03-27] MEDS ORDERED: SODIUM CHLORIDE 0.9% 1,000 ML IV ONE (16:30)
[2022-03-27] MEDS: DOPamine 1600MCG/ML D5W 250 ML IV SCH ×2 (17:46→23:44)
[2022-03-27] MEDS ORDERED: ONDANSETRON HCL 4 MG/2 ML VIAL IV PRN (18:00)
[2022-03-27] MEDS: MIDODRINE HCL 10 MG TAB PO SCH (18:00)
[2022-03-27] MEDS ORDERED: cefTRIAXone 1GM/50ML D5W 50 ML IV ONE (18:00)
[2022-03-27] MEDS ORDERED: NOREPINEPHRINE 8 MG/250ML KIT 250 ML IV ONE (18:05)
[2022-03-27] MEDS: NOREPINEPHRINE 8 MG/250ML KIT 250 ML IV SCH (18:15)
[2022-03-27] MEDS ORDERED: KETOROLAC TROMETH 30 MG/ML 1ML VIAL IV PRN (19:15)
[2022-03-27] MEDS ORDERED: DEXTROSE (50%) 50ML SYRG IV PRN (19:30)
[2022-03-27] MEDS: InsuLIN REG 1unit/0.01ml Soln (100units/ml) SC SCH (21:31)
[2022-03-27] MEDS: ACCU-CHEK COMFORT CURVE STRIP VI SCH (21:34)
[2022-03-28] VITALS (102 sets, daily range): BP systolic 71–196; BP diastolic 37–155
[2022-03-28] MEDS: ALBUMIN 25% 100 ML IV SCH ×4 (05:20→23:41)
[2022-03-28 05:31] LABS: INR 1.33 (0.9-1.15); Partial Thromboplastin Time 37.3 sec (23.6-33.0)
[2022-03-28] MEDS: InsuLIN REG 1unit/0.01ml Soln (100units/ml) SC SCH ×4 (06:03→22:00)
[2022-03-28] MEDS: ACCU-CHEK COMFORT CURVE STRIP VI SCH ×4 (06:03→22:12)
[2022-03-28] MEDS: GABAPENTIN 300 MG CAP PO SCH ×4 (06:28→22:11)
[2022-03-28] MEDS: DOPamine 1600MCG/ML D5W 250 ML IV SCH ×3 (06:58→21:12)
[2022-03-28] MEDS: FUROSEMIDE 100 MG/10ML VIAL IV SCH ×2 (07:00→18:00)
[2022-03-28] MEDS ORDERED: cefTRIAXone 1GM/50ML D5W 50 ML IV SCH (09:00)
[2022-03-28] MEDS: APIXABAN 5 MG TAB PO SCH ×2 (09:29→22:11)
[2022-03-28] MEDS: PANTOPRAZOLE 40 MG TAB PO SCH (09:29)
[2022-03-28] MEDS: MORPHINE SULF 30 mg ER tab PO SCH ×2 (09:29→22:00)
[2022-03-28] MEDS: LOSARTAN POTASSIUM 50 MG TAB PO SCH (09:30)
[2022-03-28] MEDS: SOTALOL HCL 80 MG TAB PO SCH ×2 (09:30→23:00)
[2022-03-28 10:28] LABS: Potassium 4.8 mmol/L (3.5-5.1)
[2022-03-28 10:34] LABS: Albumin 2.9 g/dL (3.4-5.0); BUN/Creatinine Ratio 16.3; Calcium 8.3 mg/dL (8.5-10.1); Total Protein 7.4 g/dL (6.4-8.2)
[2022-03-28] MEDS: NOREPINEPHRINE 8 MG/250ML KIT 250 ML IV SCH (11:09)
[2022-03-28] MEDS ORDERED: VANCOMYCIN PER PHARMACY 0 MG IV SCH (15:00)
[2022-03-28] MEDS: VANCOMYCIN 1GM/250ML 250 ML IV SCH ×2 (15:56→17:23)
[2022-03-28] MEDS ORDERED: LIDOCAINE 1% (LOCAL ANESTH.) PF 5ml SDV ID ONE (16:30)
[2022-03-28] MEDS: SODIUM CHLOR 0.9% PF (SALINE LOCK) 10ML VIAL/SYR IV SCH (22:12)
[2022-03-29] VITALS (97 sets, daily range): BP systolic 82–146; BP diastolic 33–95
[2022-03-29] MEDS: NOREPINEPHRINE 8 MG/250ML KIT 250 ML IV SCH ×2 (01:25→10:55)
[2022-03-29] MEDS: DOPamine 1600MCG/ML D5W 250 ML IV SCH ×3 (04:32→18:21)
[2022-03-29] MEDS: ALBUMIN 25% 100 ML IV SCH (05:07)
[2022-03-29 05:46] LABS: Basophils # (auto) 0 10 ^3/uL (0-0.2); Basophils % (auto) 0.4 % (0.0-2.0); Eosinophils # (auto) 0.2 10 ^3/uL (0-0.8); Eosinophils % (auto) 1.4 % (0.0-7.0); Hemoglobin 10.1 g/dL (13.5-17.5); Lymphocytes # (auto) 1.5 10 ^3/uL (0.4-5.4); Lymphocytes % (auto) 13.8 % (10.0-50.0); Mean Corpuscular Hemoglobin 28.3 pg (28.0-32.0); Mean Corpuscular Hgb Conc. 32.7 g/dL (32.0-36.0); Mean Corpuscular Volume 86.6 fL (80.0-100.0); Monocytes # (auto) 0.9 10 ^3/uL (0-1.3); Monocytes % (auto) 8.3 % (0.0-12.0); Neutrophils # (auto) 8.5 10 ^3/uL (1.6-8.6); Neutrophils % (auto) 76.1 % (37.0-80.0); Red Blood Cells 3.58 10^6/uL (4.5-5.90); Red Cell Distribution Width 15.9 % (11.8-14.3); White Blood Cell 11.2 10^3/uL (4.4-10.8)
[2022-03-29 06:02] LABS: Potassium 4.1 mmol/L (3.5-5.1)
[2022-03-29 06:07] LABS: BUN/Creatinine Ratio 23.1; Calcium 8.2 mg/dL (8.5-10.1)
[2022-03-29] MEDS: InsuLIN REG 1unit/0.01ml Soln (100units/ml) SC SCH ×4 (06:22→21:08)
[2022-03-29] MEDS: ACCU-CHEK COMFORT CURVE STRIP VI SCH ×4 (06:22→21:08)
[2022-03-29] MEDS: GABAPENTIN 300 MG CAP PO SCH ×3 (06:23→21:01)
[2022-03-29] MEDS: FUROSEMIDE 100 MG/10ML VIAL IV SCH ×2 (06:37→18:21)
[2022-03-29] MEDS: APIXABAN 5 MG TAB PO SCH ×2 (09:56→21:00)
[2022-03-29] MEDS: PANTOPRAZOLE 40 MG TAB PO SCH (09:56)
[2022-03-29] MEDS: MORPHINE SULF 30 mg ER tab PO SCH ×2 (09:56→21:00)
[2022-03-29] MEDS: SOTALOL HCL 80 MG TAB PO SCH ×2 (09:57→21:01)
[2022-03-29] MEDS: LOSARTAN POTASSIUM 50 MG TAB PO SCH (09:58)
[2022-03-29] MEDS: SODIUM CHLOR 0.9% PF (SALINE LOCK) 10ML VIAL/SYR IV SCH ×2 (09:59→22:29)
[2022-03-29] MEDS: MIDODRINE HCL 10 MG TAB PO SCH ×2 (13:20→18:21)
[2022-03-29] MEDS ORDERED: VANCOMYCIN 1GM/250ML 250 ML IV ONE (18:00)
[2022-03-30] VITALS (100 sets, daily range): BP systolic 68–168; BP diastolic 43–146
[2022-03-30] MEDS: NOREPINEPHRINE 8 MG/250ML KIT 250 ML IV SCH (01:21)
[2022-03-30] MEDS: DOPamine 1600MCG/ML D5W 250 ML IV SCH ×3 (01:40→16:50)
[2022-03-30] MEDS: GABAPENTIN 300 MG CAP PO SCH ×3 (05:40→22:06)
[2022-03-30] MEDS: MIDODRINE HCL 10 MG TAB PO SCH ×3 (05:40→18:39)
[2022-03-30] MEDS: InsuLIN REG 1unit/0.01ml Soln (100units/ml) SC SCH ×4 (06:25→22:11)
[2022-03-30] MEDS: ACCU-CHEK COMFORT CURVE STRIP VI SCH ×4 (06:27→22:08)
[2022-03-30] MEDS: FUROSEMIDE 100 MG/10ML VIAL IV SCH ×2 (06:36→18:00)
[2022-03-30] MEDS: APIXABAN 5 MG TAB PO SCH ×2 (09:49→22:06)
[2022-03-30] MEDS: MORPHINE SULF 30 mg ER tab PO SCH ×2 (09:49→22:06)
[2022-03-30] MEDS: PANTOPRAZOLE 40 MG TAB PO SCH (09:49)
[2022-03-30] MEDS: SOTALOL HCL 80 MG TAB PO SCH ×2 (09:50→22:00)
[2022-03-30] MEDS: LOSARTAN POTASSIUM 50 MG TAB PO SCH (09:50)
[2022-03-30] MEDS: SODIUM CHLOR 0.9% PF (SALINE LOCK) 10ML VIAL/SYR IV SCH ×2 (09:50→22:08)
[2022-03-30] MEDS ORDERED: VANCOMYCIN 1GM/250ML 250 ML IV ONE (18:00)
[2022-03-31] VITALS (93 sets, daily range): BP systolic 92–168; BP diastolic 56–146
[2022-03-31] MEDS: DOPamine 1600MCG/ML D5W 250 ML IV SCH ×5 (00:04→21:54)
[2022-03-31 06:07] LABS: Basophils # (auto) 0.1 10 ^3/uL (0-0.2); Basophils % (auto) 1.2 % (0.0-2.0); Eosinophils # (auto) 0.2 10 ^3/uL (0-0.8); Eosinophils % (auto) 1.5 % (0.0-7.0); Hematocrit 34.2 % (41.0-53.0); Hemoglobin 11.1 g/dL (13.5-17.5); Lymphocytes # (auto) 1.4 10 ^3/uL (0.4-5.4); Lymphocytes % (auto) 11.6 % (10.0-50.0); Mean Corpuscular Hemoglobin 27.9 pg (28.0-32.0); Mean Corpuscular Hgb Conc. 32.5 g/dL (32.0-36.0); Mean Corpuscular Volume 85.9 fL (80.0-100.0); Monocytes # (auto) 1.3 10 ^3/uL (0-1.3); Monocytes % (auto) 10.6 % (0.0-12.0); Neutrophils # (auto) 9.4 10 ^3/uL (1.6-8.6); Neutrophils % (auto) 75.1 % (37.0-80.0); Nucleated Red Blood Cells % 0.1 %; Red Blood Cells 3.99 10^6/uL (4.5-5.90); White Blood Cell 12.5 10^3/uL (4.4-10.8)
[2022-03-31 06:22] LABS: Alanine Aminotransferase 87 U/L (16-61); Albumin 2.5 g/dL (3.4-5.0); Anion Gap 8 (5-15); Aspartate Aminotransferase 22 U/L (15-37); BUN/Creatinine Ratio 31.3; Blood Urea Nitrogen 30 mg/dL (7-18); Calcium 8.7 mg/dL (8.5-10.1); Carbon Dioxide 29 mmol/L (21-32); Chloride 103 mmol/L (98-107); GFR African American 105 mL/min; GFR Non-African American 86 mL/min; Glucose 126 mg/dL (74-106); Potassium 3.9 mmol/L (3.5-5.1); Sodium 140 mmol/L (136-145)
[2022-03-31 06:25] LABS: Alkaline Phosphatase 71 U/L (45-117); Bilirubin, Total 1.3 mg/dL (0.2-1.0); Total Protein 6.7 g/dL (6.4-8.2)
[2022-03-31] MEDS: GABAPENTIN 300 MG CAP PO SCH ×3 (06:30→21:34)
[2022-03-31] MEDS: NOREPINEPHRINE 8 MG/250ML KIT 250 ML IV SCH (06:31)
[2022-03-31] MEDS: MIDODRINE HCL 10 MG TAB PO SCH ×3 (06:31→18:28)
[2022-03-31] MEDS: FUROSEMIDE 100 MG/10ML VIAL IV SCH ×2 (06:31→18:28)
[2022-03-31] MEDS: ACCU-CHEK COMFORT CURVE STRIP VI SCH ×4 (06:34→21:43)
[2022-03-31] MEDS: InsuLIN REG 1unit/0.01ml Soln (100units/ml) SC SCH ×4 (06:35→21:54)
[2022-03-31] MEDS: SODIUM CHLOR 0.9% PF (SALINE LOCK) 10ML VIAL/SYR IV SCH ×2 (10:00→21:43)
[2022-03-31] MEDS: LOSARTAN POTASSIUM 50 MG TAB PO SCH (10:00)
[2022-03-31] MEDS: SOTALOL HCL 80 MG TAB PO SCH ×2 (10:17→21:34)
[2022-03-31] MEDS: VANCOMYCIN 1GM/250ML 250 ML IV SCH ×2 (10:17→18:29)
[2022-03-31] MEDS: MORPHINE SULF 30 mg ER tab PO SCH ×2 (10:18→21:34)
[2022-03-31] MEDS: APIXABAN 5 MG TAB PO SCH (10:18)
[2022-03-31] MEDS: PANTOPRAZOLE 40 MG TAB PO SCH (10:18)
[2022-03-31 12:31] LABS: Albumin 2.3 g/dL (3.4-5.0); BUN/Creatinine Ratio 27.9; Calcium 8.5 mg/dL (8.5-10.1); Potassium 3.7 mmol/L (3.5-5.1)
[2022-03-31 12:34] LABS: Bilirubin, Total 1.2 mg/dL (0.2-1.0); Total Protein 6.3 g/dL (6.4-8.2)
[2022-03-31] MEDS: ENOXAPARIN SOD 150 MG/1 ML SYRINGE SC SCH ×2 (19:28→19:30)
[2022-04-01] VITALS (84 sets, daily range): BP systolic 89–126; BP diastolic 41–104
[2022-04-01] MEDS: VANCOMYCIN 1GM/250ML 250 ML IV SCH ×3 (01:33→18:00)
[2022-04-01 05:31] LABS: Basophils # (auto) 0.1 10 ^3/uL (0-0.2); Basophils % (auto) 0.7 % (0.0-2.0); Eosinophils # (auto) 0.3 10 ^3/uL (0-0.8); Eosinophils % (auto) 2.6 % (0.0-7.0); Hematocrit 34.4 % (41.0-53.0); Hemoglobin 11.1 g/dL (13.5-17.5); Lymphocytes # (auto) 1.6 10 ^3/uL (0.4-5.4); Lymphocytes % (auto) 14.3 % (10.0-50.0); Mean Corpuscular Hemoglobin 27.8 pg (28.0-32.0); Mean Corpuscular Hgb Conc. 32.4 g/dL (32.0-36.0); Mean Corpuscular Volume 85.9 fL (80.0-100.0); Monocytes # (auto) 1.2 10 ^3/uL (0-1.3); Monocytes % (auto) 11.1 % (0.0-12.0); Neutrophils # (auto) 7.8 10 ^3/uL (1.6-8.6); Neutrophils % (auto) 71.3 % (37.0-80.0); Nucleated Red Blood Cells % 0.1 %; Red Cell Distribution Width 16.2 % (11.8-14.3); White Blood Cell 10.9 10^3/uL (4.4-10.8)
[2022-04-01 05:44] LABS: INR 1.41 (0.9-1.15); Partial Thromboplastin Time 34.6 sec (23.6-33.0)
[2022-04-01 05:46] LABS: Potassium 3.3 mmol/L (3.5-5.1)
[2022-04-01 05:53] LABS: Albumin 2.4 g/dL (3.4-5.0); BUN/Creatinine Ratio 26.7; Bilirubin, Total 1.2 mg/dL (0.2-1.0); Calcium 8.7 mg/dL (8.5-10.1); Total Protein 6.7 g/dL (6.4-8.2)
[2022-04-01] MEDS: FUROSEMIDE 100 MG/10ML VIAL IV SCH (06:12)
[2022-04-01] MEDS: ACCU-CHEK COMFORT CURVE STRIP VI SCH ×4 (06:13→21:55)
[2022-04-01] MEDS: GABAPENTIN 300 MG CAP PO SCH ×3 (06:13→21:50)
[2022-04-01] MEDS: MIDODRINE HCL 10 MG TAB PO SCH ×3 (06:13→17:25)
[2022-04-01] MEDS: InsuLIN REG 1unit/0.01ml Soln (100units/ml) SC SCH ×4 (06:15→21:55)
[2022-04-01] MEDS: SOTALOL HCL 80 MG TAB PO SCH ×2 (09:27→21:51)
[2022-04-01] MEDS: LOSARTAN POTASSIUM 50 MG TAB PO SCH (09:27)
[2022-04-01] MEDS: SODIUM CHLOR 0.9% PF (SALINE LOCK) 10ML VIAL/SYR IV SCH ×2 (09:44→21:51)
[2022-04-01] MEDS: POTASSIUM CHL 20 Meq TABLET PO SCH (09:45)
[2022-04-01] MEDS: MORPHINE SULF 30 mg ER tab PO SCH ×2 (09:45→21:50)
[2022-04-01] MEDS: PANTOPRAZOLE 40 MG TAB PO SCH (09:45)
[2022-04-01] MEDS: DOPamine 1600MCG/ML D5W 250 ML IV SCH ×2 (12:14→19:28)
[2022-04-01] MEDS: FUROSEMIDE 40 MG/4 ML VIAL IV SCH (17:25)
[2022-04-01] MEDS: NOREPINEPHRINE 8 MG/250ML KIT 250 ML IV SCH (18:15)
[2022-04-01] MEDS: ENOXAPARIN SOD 150 MG/1 ML SYRINGE SC SCH (21:55)
[2022-04-02] VITALS (84 sets, daily range): BP systolic 77–148; BP diastolic 37–119
[2022-04-02] MEDS: DOPamine 1600MCG/ML D5W 250 ML IV SCH ×3 (02:42→17:10)
[2022-04-02] MEDS: VANCOMYCIN 1GM/250ML 250 ML IV SCH (03:16)
[2022-04-02] MEDS: FUROSEMIDE 40 MG/4 ML VIAL IV SCH ×2 (06:23→17:33)
[2022-04-02 06:34] LABS: Basophils # (auto) 0.1 10 ^3/uL (0-0.2); Basophils % (auto) 0.8 % (0.0-2.0); Eosinophils # (auto) 0.3 10 ^3/uL (0-0.8); Hematocrit 32.6 % (41.0-53.0); Hemoglobin 11.2 g/dL (13.5-17.5); Lymphocytes # (auto) 1.8 10 ^3/uL (0.4-5.4); Lymphocytes % (auto) 19.3 % (10.0-50.0); Mean Corpuscular Hemoglobin 29.1 pg (28.0-32.0); Mean Corpuscular Hgb Conc. 34.3 g/dL (32.0-36.0); Mean Corpuscular Volume 84.9 fL (80.0-100.0); Monocytes # (auto) 0.8 10 ^3/uL (0-1.3); Monocytes % (auto) 9.1 % (0.0-12.0); Neutrophils # (auto) 6.3 10 ^3/uL (1.6-8.6); Neutrophils % (auto) 67.8 % (37.0-80.0); Red Blood Cells 3.83 10^6/uL (4.5-5.90); Red Cell Distribution Width 16.1 % (11.8-14.3); White Blood Cell 9.3 10^3/uL (4.4-10.8)
[2022-04-02 06:50] LABS: Potassium 3.2 mmol/L (3.5-5.1)
[2022-04-02 06:59] LABS: Albumin 2.1 g/dL (3.4-5.0); BUN/Creatinine Ratio 19.6; Bilirubin, Total 1.1 mg/dL (0.2-1.0); Calcium 8.4 mg/dL (8.5-10.1); Total Protein 6.2 g/dL (6.4-8.2)
[2022-04-02] MEDS: InsuLIN REG 1unit/0.01ml Soln (100units/ml) SC SCH ×4 (07:00→22:00)
[2022-04-02] MEDS: POTASSIUM CHL 20MEQ/100ML 100 ML IV SCH ×2 (08:17→10:26)
[2022-04-02] MEDS: MAGNESIUM SULFATE 1GM/100ML 100 ML IV SCH ×2 (08:46→10:26)
[2022-04-02] MEDS: LOSARTAN POTASSIUM 50 MG TAB PO SCH (10:00)
[2022-04-02] MEDS: ENOXAPARIN SOD 150 MG/1 ML SYRINGE SC SCH ×2 (10:00→22:00)
[2022-04-02] MEDS: SODIUM CHLOR 0.9% PF (SALINE LOCK) 10ML VIAL/SYR IV SCH ×2 (11:24→22:11)
[2022-04-02] MEDS: SOTALOL HCL 80 MG TAB PO SCH ×2 (11:24→22:08)
[2022-04-02] MEDS: PANTOPRAZOLE 40 MG TAB PO SCH (11:25)
[2022-04-02] MEDS: POTASSIUM CHL 20 Meq TABLET PO SCH (11:25)
[2022-04-02] MEDS: MORPHINE SULF 30 mg ER tab PO SCH ×2 (11:25→22:09)
[2022-04-02] MEDS: ACCU-CHEK COMFORT CURVE STRIP VI SCH ×4 (11:27→22:10)
[2022-04-02] MEDS: MIDODRINE HCL 10 MG TAB PO SCH ×3 (11:33→17:33)
[2022-04-02] MEDS: GABAPENTIN 300 MG CAP PO SCH ×2 (11:35→22:09)
[2022-04-02] MEDS ORDERED: LIDOCAINE 2% (LOCAL ANESTH.) PF 5ml SDV ONE ×2 (13:49→15:40)
[2022-04-02] MEDS ORDERED: VANCOMYCIN 1GM/250ML 250 ML IV SCH (15:00)
[2022-04-02] MEDS: NOREPINEPHRINE 8 MG/250ML KIT 250 ML IV SCH (18:15)
[2022-04-02] MEDS: ALPRAZolam 0.25 MG TAB PO PRN (19:52)
[2022-04-02] MEDS: DOCUSATE SOD 100 MG CAP PO SCH (22:09)
[2022-04-03] VITALS (87 sets, daily range): BP systolic 76–131; BP diastolic 39–84
[2022-04-03] MEDS: DOPamine 1600MCG/ML D5W 250 ML IV SCH ×3 (00:24→14:52)
[2022-04-03] MEDS: VANCOMYCIN 1GM/250ML 250 ML IV SCH ×3 (01:03→20:47)
[2022-04-03 05:01] LABS: Basophils # (auto) 0.2 10 ^3/uL (0-0.2); Basophils % (auto) 1.9 % (0.0-2.0); Eosinophils # (auto) 0.2 10 ^3/uL (0-0.8); Eosinophils % (auto) 1.7 % (0.0-7.0); Hematocrit 32.6 % (41.0-53.0); Hemoglobin 10.7 g/dL (13.5-17.5); Lymphocytes % (auto) 16.4 % (10.0-50.0); Mean Corpuscular Hemoglobin 27.9 pg (28.0-32.0); Mean Corpuscular Hgb Conc. 32.8 g/dL (32.0-36.0); Mean Corpuscular Volume 85.2 fL (80.0-100.0); Monocytes # (auto) 1.2 10 ^3/uL (0-1.3); Monocytes % (auto) 9.7 % (0.0-12.0); Neutrophils # (auto) 8.5 10 ^3/uL (1.6-8.6); Neutrophils % (auto) 70.3 % (37.0-80.0); Red Blood Cells 3.83 10^6/uL (4.5-5.90); Red Cell Distribution Width 15.8 % (11.8-14.3); White Blood Cell 12.1 10^3/uL (4.4-10.8)
[2022-04-03 05:16] LABS: Albumin 2.2 g/dL (3.4-5.0); Calcium 8.5 mg/dL (8.5-10.1); Magnesium 1.5 mg/dL (1.6-2.6); Potassium 3.6 mmol/L (3.5-5.1)
[2022-04-03 05:20] LABS: BUN/Creatinine Ratio 16.4; Bilirubin, Total 1.2 mg/dL (0.2-1.0); Total Protein 6.4 g/dL (6.4-8.2)
[2022-04-03] MEDS: MIDODRINE HCL 10 MG TAB PO SCH ×3 (06:00→17:32)
[2022-04-03] MEDS: GABAPENTIN 300 MG CAP PO SCH ×3 (06:00→21:57)
[2022-04-03] MEDS: FUROSEMIDE 40 MG/4 ML VIAL IV SCH ×2 (06:14→17:32)
[2022-04-03] MEDS: InsuLIN REG 1unit/0.01ml Soln (100units/ml) SC SCH ×4 (06:54→21:59)
[2022-04-03] MEDS: ACCU-CHEK COMFORT CURVE STRIP VI SCH ×4 (06:54→22:00)
[2022-04-03] MEDS: POTASSIUM CHL 20 Meq TABLET PO SCH (08:59)
[2022-04-03] MEDS: DOCUSATE SOD 100 MG CAP PO SCH ×2 (08:59→21:57)
[2022-04-03] MEDS: PANTOPRAZOLE 40 MG TAB PO SCH (09:00)
[2022-04-03] MEDS: MORPHINE SULF 30 mg ER tab PO SCH ×2 (09:00→21:57)
[2022-04-03] MEDS: APIXABAN 5 MG TAB PO SCH ×2 (09:00→21:57)
[2022-04-03] MEDS: ENOXAPARIN SOD 150 MG/1 ML SYRINGE SC SCH ×2 (09:01→21:56)
[2022-04-03] MEDS: SODIUM CHLOR 0.9% PF (SALINE LOCK) 10ML VIAL/SYR IV SCH ×2 (09:10→21:58)
[2022-04-03] MEDS: SOTALOL HCL 80 MG TAB PO SCH ×2 (10:00→21:58)
[2022-04-03] MEDS: LOSARTAN POTASSIUM 50 MG TAB PO SCH (10:00)
[2022-04-03] MEDS: NOREPINEPHRINE 8 MG/250ML KIT 250 ML IV SCH (13:01)
[2022-04-03] MEDS: HYDROCORTISONE SOD SUCC 100 MG/2ML INJ VIAL IV SCH ×2 (14:38→21:57)
[2022-04-03] MEDS: ALPRAZolam 0.25 MG TAB PO PRN ×2 (14:44→23:54)
[2022-04-03] MEDS: LACTULOSE 20Gm/30ML SOLN PO SCH (14:53)
[2022-04-04] VITALS (94 sets, daily range): BP systolic 74–127; BP diastolic 45–90
[2022-04-04] MEDS: NOREPINEPHRINE 8 MG/250ML KIT 250 ML IV SCH (03:22)
[2022-04-04 05:35] LABS: Basophils # (auto) 0.1 10 ^3/uL (0-0.2); Basophils % (auto) 0.5 % (0.0-2.0); Eosinophils # (auto) 0 10 ^3/uL (0-0.8); Eosinophils % (auto) 0.1 % (0.0-7.0); Hematocrit 33.7 % (41.0-53.0); Lymphocytes # (auto) 1.3 10 ^3/uL (0.4-5.4); Lymphocytes % (auto) 10.5 % (10.0-50.0); Mean Corpuscular Hemoglobin 27.8 pg (28.0-32.0); Mean Corpuscular Hgb Conc. 32.7 g/dL (32.0-36.0); Mean Corpuscular Volume 85.2 fL (80.0-100.0); Monocytes # (auto) 0.5 10 ^3/uL (0-1.3); Monocytes % (auto) 4.3 % (0.0-12.0); Neutrophils # (auto) 10.2 10 ^3/uL (1.6-8.6); Neutrophils % (auto) 84.6 % (37.0-80.0); Red Blood Cells 3.95 10^6/uL (4.5-5.90); Red Cell Distribution Width 15.9 % (11.8-14.3)
[2022-04-04 05:46] LABS: Albumin 2.4 g/dL (3.4-5.0); Calcium 8.6 mg/dL (8.5-10.1); Potassium 4.2 mmol/L (3.5-5.1)
[2022-04-04 05:50] LABS: BUN/Creatinine Ratio 13.5
[2022-04-04 05:52] LABS: Bilirubin, Total 1.1 mg/dL (0.2-1.0); Total Protein 6.9 g/dL (6.4-8.2)
[2022-04-04] MEDS: MIDODRINE HCL 10 MG TAB PO SCH ×3 (06:13→17:02)
[2022-04-04] MEDS: FUROSEMIDE 40 MG/4 ML VIAL IV SCH ×2 (06:13→17:02)
[2022-04-04] MEDS: VANCOMYCIN 1GM/250ML 250 ML IV SCH ×2 (06:14→17:01)
[2022-04-04] MEDS: ACCU-CHEK COMFORT CURVE STRIP VI SCH ×4 (06:16→21:55)
[2022-04-04] MEDS: InsuLIN REG 1unit/0.01ml Soln (100units/ml) SC SCH ×4 (06:16→21:48)
[2022-04-04] MEDS: GABAPENTIN 300 MG CAP PO SCH ×3 (06:17→21:35)
[2022-04-04] MEDS: HYDROCORTISONE SOD SUCC 100 MG/2ML INJ VIAL IV SCH ×3 (06:20→21:35)
[2022-04-04] MEDS: LACTULOSE 20Gm/30ML SOLN PO SCH (09:53)
[2022-04-04] MEDS: SOTALOL HCL 80 MG TAB PO SCH ×2 (09:54→21:55)
[2022-04-04] MEDS: POTASSIUM CHL 20 Meq TABLET PO SCH (09:55)
[2022-04-04] MEDS: DOCUSATE SOD 100 MG CAP PO SCH ×2 (09:55→21:36)
[2022-04-04] MEDS: APIXABAN 5 MG TAB PO SCH ×2 (09:55→21:36)
[2022-04-04] MEDS: ENOXAPARIN SOD 150 MG/1 ML SYRINGE SC SCH ×2 (09:56→21:36)
[2022-04-04] MEDS: PANTOPRAZOLE 40 MG TAB PO SCH (09:56)
[2022-04-04] MEDS: LOSARTAN POTASSIUM 50 MG TAB PO SCH (09:57)
[2022-04-04] MEDS: MORPHINE SULF 30 mg ER tab PO SCH ×2 (09:58→21:35)
[2022-04-04] MEDS: SODIUM CHLOR 0.9% PF (SALINE LOCK) 10ML VIAL/SYR IV SCH ×2 (10:17→21:55)
[2022-04-04] MEDS: ALPRAZolam 0.25 MG TAB PO PRN (23:39)
[2022-04-05] VITALS (87 sets, daily range): BP systolic 85–131; BP diastolic 47–87
[2022-04-05] MEDS: VANCOMYCIN 1GM/250ML 250 ML IV SCH ×4 (03:00→23:00)
[2022-04-05] MEDS: NOREPINEPHRINE 8 MG/250ML KIT 250 ML IV SCH (03:11)
[2022-04-05 05:02] LABS: Albumin 2.3 g/dL (3.4-5.0); BUN/Creatinine Ratio 20.5; Basophils # (auto) 0.1 10 ^3/uL (0-0.2); Basophils % (auto) 0.6 % (0.0-2.0); Calcium 8.8 mg/dL (8.5-10.1); Eosinophils # (auto) 0 10 ^3/uL (0-0.8); Eosinophils % (auto) 0.2 % (0.0-7.0); Hematocrit 32.9 % (41.0-53.0); Hemoglobin 10.7 g/dL (13.5-17.5); Lymphocytes # (auto) 1.7 10 ^3/uL (0.4-5.4); Lymphocytes % (auto) 11.8 % (10.0-50.0); Mean Corpuscular Hemoglobin 27.9 pg (28.0-32.0); Mean Corpuscular Hgb Conc. 32.6 g/dL (32.0-36.0); Mean Corpuscular Volume 85.4 fL (80.0-100.0); Monocytes # (auto) 0.9 10 ^3/uL (0-1.3); Monocytes % (auto) 6.6 % (0.0-12.0); Neutrophils # (auto) 11.4 10 ^3/uL (1.6-8.6); Neutrophils % (auto) 80.8 % (37.0-80.0); Nucleated Red Blood Cells % 0.1 %; Potassium 3.7 mmol/L (3.5-5.1); Red Blood Cells 3.85 10^6/uL (4.5-5.90); Red Cell Distribution Width 16.3 % (11.8-14.3); White Blood Cell 14.1 10^3/uL (4.4-10.8)
[2022-04-05 05:04] LABS: Bilirubin, Total 0.8 mg/dL (0.2-1.0); Total Protein 6.8 g/dL (6.4-8.2)
[2022-04-05] MEDS: InsuLIN REG 1unit/0.01ml Soln (100units/ml) SC SCH ×3 (06:00→17:12)
[2022-04-05] MEDS: GABAPENTIN 300 MG CAP PO SCH ×3 (06:05→21:59)
[2022-04-05] MEDS: HYDROCORTISONE SOD SUCC 100 MG/2ML INJ VIAL IV SCH ×3 (06:05→22:00)
[2022-04-05] MEDS: FUROSEMIDE 40 MG/4 ML VIAL IV SCH ×2 (06:06→17:13)
[2022-04-05] MEDS: ACCU-CHEK COMFORT CURVE STRIP VI SCH ×4 (06:07→22:00)
[2022-04-05] MEDS: MIDODRINE HCL 10 MG TAB PO SCH ×3 (06:49→17:13)
[2022-04-05] MEDS: LACTULOSE 20Gm/30ML SOLN PO SCH (09:51)
[2022-04-05] MEDS: ENOXAPARIN SOD 150 MG/1 ML SYRINGE SC SCH ×2 (09:51→22:01)
[2022-04-05] MEDS: DOCUSATE SOD 100 MG CAP PO SCH ×2 (09:52→21:59)
[2022-04-05] MEDS: POTASSIUM CHL 20 Meq TABLET PO SCH (09:52)
[2022-04-05] MEDS: SOTALOL HCL 80 MG TAB PO SCH ×2 (09:52→22:00)
[2022-04-05] MEDS: LOSARTAN POTASSIUM 50 MG TAB PO SCH (09:53)
[2022-04-05] MEDS: PANTOPRAZOLE 40 MG TAB PO SCH (09:57)
[2022-04-05] MEDS: SODIUM CHLOR 0.9% PF (SALINE LOCK) 10ML VIAL/SYR IV SCH ×2 (09:57→22:00)
[2022-04-05] MEDS: MORPHINE SULF 30 mg ER tab PO SCH ×2 (10:20→22:00)
[2022-04-05] MEDS: ALPRAZolam 0.25 MG TAB PO PRN (14:54)
[2022-04-05] MEDS: DOPamine 1600MCG/ML D5W 250 ML IV SCH (17:30)
[2022-04-05] MEDS ORDERED: ENOXAPARIN SOD 100 MG/1 ML SYRINGE SC SCH (22:00)
[2022-04-06] VITALS (75 sets, daily range): BP systolic 89–129; BP diastolic 46–83
[2022-04-06] MEDS: InsuLIN REG 1unit/0.01ml Soln (100units/ml) SC SCH ×4 (00:33→17:00)
[2022-04-06] MEDS: DOPamine 1600MCG/ML D5W 250 ML IV SCH ×4 (00:34→22:26)
[2022-04-06] MEDS: ALPRAZolam 0.25 MG TAB PO PRN ×3 (00:34→20:30)
[2022-04-06 05:27] LABS: Basophils # (auto) 0.1 10 ^3/uL (0-0.2); Basophils % (auto) 0.6 % (0.0-2.0); Eosinophils # (auto) 0 10 ^3/uL (0-0.8); Eosinophils % (auto) 0.1 % (0.0-7.0); Hematocrit 33.6 % (41.0-53.0); Hemoglobin 10.7 g/dL (13.5-17.5); Lymphocytes % (auto) 8.8 % (10.0-50.0); Mean Corpuscular Hemoglobin 27.3 pg (28.0-32.0); Mean Corpuscular Volume 85.5 fL (80.0-100.0); Monocytes # (auto) 0.6 10 ^3/uL (0-1.3); Monocytes % (auto) 5.1 % (0.0-12.0); Neutrophils # (auto) 10.1 10 ^3/uL (1.6-8.6); Neutrophils % (auto) 85.4 % (37.0-80.0); Red Blood Cells 3.93 10^6/uL (4.5-5.90); White Blood Cell 11.8 10^3/uL (4.4-10.8)
[2022-04-06 05:42] LABS: INR 1.28 (0.9-1.15); Partial Thromboplastin Time 34.6 sec (23.6-33.0)
[2022-04-06 05:47] LABS: Potassium 4.2 mmol/L (3.5-5.1)
[2022-04-06 05:56] LABS: Albumin 2.3 g/dL (3.4-5.0); BUN/Creatinine Ratio 22.1; Bilirubin, Total 0.7 mg/dL (0.2-1.0); Calcium 8.6 mg/dL (8.5-10.1); Total Protein 6.9 g/dL (6.4-8.2)
[2022-04-06] MEDS: HYDROCORTISONE SOD SUCC 100 MG/2ML INJ VIAL IV SCH ×3 (06:00→22:38)
[2022-04-06] MEDS: MIDODRINE HCL 10 MG TAB PO SCH ×3 (06:00→17:28)
[2022-04-06] MEDS: GABAPENTIN 300 MG CAP PO SCH ×3 (06:00→22:38)
[2022-04-06] MEDS: FUROSEMIDE 40 MG/4 ML VIAL IV SCH ×2 (06:00→17:27)
[2022-04-06] MEDS: ACCU-CHEK COMFORT CURVE STRIP VI SCH ×3 (07:00→17:28)
[2022-04-06] MEDS: VANCOMYCIN 1GM/250ML 250 ML IV SCH ×2 (09:06→20:28)
[2022-04-06] MEDS: SOTALOL HCL 80 MG TAB PO SCH ×2 (10:00→22:00)
[2022-04-06] MEDS: LACTULOSE 20Gm/30ML SOLN PO SCH (10:46)
[2022-04-06] MEDS: ENOXAPARIN SOD 150 MG/1 ML SYRINGE SC SCH ×2 (10:46→22:00)
[2022-04-06] MEDS: PANTOPRAZOLE 40 MG TAB PO SCH (10:47)
[2022-04-06] MEDS: DOCUSATE SOD 100 MG CAP PO SCH ×2 (10:47→22:38)
[2022-04-06] MEDS: POTASSIUM CHL 20 Meq TABLET PO SCH (10:48)
[2022-04-06] MEDS: SODIUM CHLOR 0.9% PF (SALINE LOCK) 10ML VIAL/SYR IV SCH ×2 (10:48→20:29)
[2022-04-06] MEDS: MORPHINE SULF 30 mg ER tab PO SCH ×2 (10:49→22:39)
[2022-04-06] MEDS: LOSARTAN POTASSIUM 50 MG TAB PO SCH (10:59)
[2022-04-06] MEDS: NOREPINEPHRINE 8 MG/250ML KIT 250 ML IV SCH (15:45)
[2022-04-06] MEDS: NYSTATIN TOPICAL POWDER 15GM TOP SCH (22:00)
[2022-04-07] VITALS (24 sets, daily range): BP systolic 93–121; BP diastolic 55–78
[2022-04-07] MEDS: ACCU-CHEK COMFORT CURVE STRIP VI SCH ×5 (01:22→22:00)
[2022-04-07] MEDS: InsuLIN REG 1unit/0.01ml Soln (100units/ml) SC SCH ×5 (01:23→22:00)
[2022-04-07] MEDS: DOPamine 1600MCG/ML D5W 250 ML IV SCH ×3 (05:40→20:08)
[2022-04-07] MEDS: VANCOMYCIN 1GM/250ML 250 ML IV SCH (06:43)
[2022-04-07] MEDS: MIDODRINE HCL 10 MG TAB PO SCH ×3 (06:44→17:28)
[2022-04-07] MEDS: HYDROCORTISONE SOD SUCC 100 MG/2ML INJ VIAL IV SCH ×3 (06:44→23:15)
[2022-04-07] MEDS: GABAPENTIN 300 MG CAP PO SCH ×3 (06:44→23:17)
[2022-04-07] MEDS: FUROSEMIDE 40 MG/4 ML VIAL IV SCH (06:44)
[2022-04-07 08:21] LABS: Basophils # (auto) 0 10 ^3/uL (0-0.2); Basophils % (auto) 0.4 % (0.0-2.0); Eosinophils # (auto) 0 10 ^3/uL (0-0.8); Eosinophils % (auto) 0.2 % (0.0-7.0); Hemoglobin 10.8 g/dL (13.5-17.5); Lymphocytes # (auto) 0.9 10 ^3/uL (0.4-5.4); Lymphocytes % (auto) 10.7 % (10.0-50.0); Mean Corpuscular Hemoglobin 28.3 pg (28.0-32.0); Mean Corpuscular Hgb Conc. 32.9 g/dL (32.0-36.0); Mean Corpuscular Volume 86.1 fL (80.0-100.0); Monocytes # (auto) 0.4 10 ^3/uL (0-1.3); Neutrophils # (auto) 7.4 10 ^3/uL (1.6-8.6); Neutrophils % (auto) 83.7 % (37.0-80.0); Red Blood Cells 3.83 10^6/uL (4.5-5.90); Red Cell Distribution Width 16.2 % (11.8-14.3); White Blood Cell 8.8 10^3/uL (4.4-10.8)
[2022-04-07 08:59] LABS: Albumin 2.3 g/dL (3.4-5.0); Calcium 8.5 mg/dL (8.5-10.1); Potassium 3.7 mmol/L (3.5-5.1)
[2022-04-07 09:04] LABS: BUN/Creatinine Ratio 28.8; Bilirubin, Total 0.6 mg/dL (0.2-1.0); Total Protein 6.5 g/dL (6.4-8.2)
[2022-04-07] MEDS: PANTOPRAZOLE 40 MG TAB PO SCH (09:28)
[2022-04-07] MEDS: MORPHINE SULF 30 mg ER tab PO SCH ×2 (09:28→23:17)
[2022-04-07] MEDS: LACTULOSE 20Gm/30ML SOLN PO SCH (09:28)
[2022-04-07] MEDS: DOCUSATE SOD 100 MG CAP PO SCH ×2 (09:28→23:16)
[2022-04-07] MEDS: SOTALOL HCL 80 MG TAB PO SCH ×2 (09:29→22:00)
[2022-04-07] MEDS: POTASSIUM CHL 20 Meq TABLET PO SCH (09:29)
[2022-04-07] MEDS: SODIUM CHLOR 0.9% PF (SALINE LOCK) 10ML VIAL/SYR IV SCH ×2 (09:32→22:00)
[2022-04-07] MEDS: ENOXAPARIN SOD 150 MG/1 ML SYRINGE SC SCH ×2 (09:32→23:17)
[2022-04-07] MEDS: NYSTATIN TOPICAL POWDER 15GM TOP SCH ×2 (09:32→23:18)
[2022-04-07] MEDS: ALPRAZolam 0.25 MG TAB PO PRN ×2 (15:09→23:41)
[2022-04-07] MEDS: NOREPINEPHRINE 8 MG/250ML KIT 250 ML IV SCH (15:45)
[2022-04-07] MEDS: FUROSEMIDE 20 MG TAB PO SCH (17:28)
[2022-04-07] MEDS ORDERED: VANCOMYCIN 1GM/250ML 250 ML IV SCH (21:00)
[2022-04-08] VITALS (8 sets, daily range): BP systolic 11–117; BP diastolic 52–82
[2022-04-08 05:01] LABS: Basophils # (auto) 0 10 ^3/uL (0-0.2); Basophils % (auto) 0.4 % (0.0-2.0); Eosinophils # (auto) 0 10 ^3/uL (0-0.8); Eosinophils % (auto) 0.2 % (0.0-7.0); Hematocrit 32.3 % (41.0-53.0); Hemoglobin 10.6 g/dL (13.5-17.5); Lymphocytes # (auto) 0.9 10 ^3/uL (0.4-5.4); Lymphocytes % (auto) 9.3 % (10.0-50.0); Mean Corpuscular Hemoglobin 27.9 pg (28.0-32.0); Mean Corpuscular Hgb Conc. 32.8 g/dL (32.0-36.0); Mean Corpuscular Volume 85.1 fL (80.0-100.0); Monocytes # (auto) 0.4 10 ^3/uL (0-1.3); Monocytes % (auto) 4.8 % (0.0-12.0); Neutrophils % (auto) 85.3 % (37.0-80.0); Red Cell Distribution Width 16.4 % (11.8-14.3); White Blood Cell 9.4 10^3/uL (4.4-10.8)
[2022-04-08 05:24] LABS: Albumin 2.1 g/dL (3.4-5.0); Potassium 4.1 mmol/L (3.5-5.1)
[2022-04-08 05:27] LABS: BUN/Creatinine Ratio 28.2; Calcium 8.3 mg/dL (8.5-10.1)
[2022-04-08 05:29] LABS: Bilirubin, Total 0.6 mg/dL (0.2-1.0); Total Protein 6.2 g/dL (6.4-8.2)
[2022-04-08] MEDS: HYDROCORTISONE SOD SUCC 100 MG/2ML INJ VIAL IV SCH ×3 (06:00→23:20)
[2022-04-08] MEDS: GABAPENTIN 300 MG CAP PO SCH ×3 (06:00→23:21)
[2022-04-08] MEDS: MIDODRINE HCL 10 MG TAB PO SCH ×3 (06:00→18:17)
[2022-04-08] MEDS: FUROSEMIDE 20 MG TAB PO SCH ×2 (06:00→18:17)
[2022-04-08] MEDS: ACCU-CHEK COMFORT CURVE STRIP VI SCH ×4 (06:46→23:22)
[2022-04-08] MEDS: InsuLIN REG 1unit/0.01ml Soln (100units/ml) SC SCH ×4 (06:46→23:50)
[2022-04-08] MEDS: VANCOMYCIN 1GM/250ML 250 ML IV SCH (09:28)
[2022-04-08] MEDS: SOTALOL HCL 80 MG TAB PO SCH ×2 (09:29→22:00)
[2022-04-08] MEDS: SODIUM CHLOR 0.9% PF (SALINE LOCK) 10ML VIAL/SYR IV SCH ×2 (09:29→23:20)
[2022-04-08] MEDS: LACTULOSE 20Gm/30ML SOLN PO SCH (09:29)
[2022-04-08] MEDS: POTASSIUM CHL 20 Meq TABLET PO SCH (09:30)
[2022-04-08] MEDS: DOCUSATE SOD 100 MG CAP PO SCH ×2 (09:30→23:21)
[2022-04-08] MEDS: MORPHINE SULF 30 mg ER tab PO SCH ×2 (09:30→23:22)
[2022-04-08] MEDS: ENOXAPARIN SOD 150 MG/1 ML SYRINGE SC SCH ×2 (09:31→23:22)
[2022-04-08] MEDS: PANTOPRAZOLE 40 MG TAB PO SCH (09:31)
[2022-04-08] MEDS: NYSTATIN TOPICAL POWDER 15GM TOP SCH ×2 (09:32→23:22)
[2022-04-08] MEDS: ALPRAZolam 0.25 MG TAB PO PRN (12:01)
[2022-04-09] MEDS: ALPRAZolam 0.25 MG TAB PO PRN ×3 (00:14→23:58)
[2022-04-09] MEDS: DOPamine 1600MCG/ML D5W 250 ML IV SCH (00:36)
[2022-04-09 05:00] VITALS: BP 98/64
[2022-04-09] MEDS: HYDROCORTISONE SOD SUCC 100 MG/2ML INJ VIAL IV SCH ×3 (07:08→22:46)
[2022-04-09] MEDS: FUROSEMIDE 20 MG TAB PO SCH ×3 (07:09→22:46)
[2022-04-09] MEDS: GABAPENTIN 300 MG CAP PO SCH ×3 (07:09→22:46)
[2022-04-09] MEDS: MIDODRINE HCL 10 MG TAB PO SCH ×3 (07:09→17:40)
[2022-04-09] MEDS: ACCU-CHEK COMFORT CURVE STRIP VI SCH ×4 (07:17→22:47)
[2022-04-09] MEDS: InsuLIN REG 1unit/0.01ml Soln (100units/ml) SC SCH ×5 (07:18→22:47)
[2022-04-09 09:00] VITALS: BP 98/50
[2022-04-09] MEDS: VANCOMYCIN 1GM/250ML 250 ML IV SCH (09:44)
[2022-04-09] MEDS: MORPHINE SULF 30 mg ER tab PO SCH ×2 (09:49→22:47)
[2022-04-09] MEDS: SOTALOL HCL 80 MG TAB PO SCH ×3 (09:50→23:15)
[2022-04-09] MEDS: PANTOPRAZOLE 40 MG TAB PO SCH (09:50)
[2022-04-09] MEDS: DOCUSATE SOD 100 MG CAP PO SCH ×2 (09:51→22:46)
[2022-04-09] MEDS: POTASSIUM CHL 20 Meq TABLET PO SCH (09:51)
[2022-04-09] MEDS: LACTULOSE 20Gm/30ML SOLN PO SCH (09:51)
[2022-04-09] MEDS: NYSTATIN TOPICAL POWDER 15GM TOP SCH ×2 (09:52→22:47)
[2022-04-09] MEDS: ENOXAPARIN SOD 150 MG/1 ML SYRINGE SC SCH ×2 (09:52→22:47)
[2022-04-09] MEDS: SODIUM CHLOR 0.9% PF (SALINE LOCK) 10ML VIAL/SYR IV SCH ×2 (09:53→22:46)
[2022-04-09 11:00] VITALS: BP 100/73
[2022-04-09 12:11] LABS: Basophils # (auto) 0 10 ^3/uL (0-0.2); Basophils % (auto) 0.1 % (0.0-2.0); Eosinophils # (auto) 0 10 ^3/uL (0-0.8); Eosinophils % (auto) 0.1 % (0.0-7.0); Hematocrit 34.9 % (41.0-53.0); Hemoglobin 11.5 g/dL (13.5-17.5); Lymphocytes # (auto) 0.8 10 ^3/uL (0.4-5.4); Lymphocytes % (auto) 8.8 % (10.0-50.0); Mean Corpuscular Hemoglobin 28.3 pg (28.0-32.0); Mean Corpuscular Hgb Conc. 32.9 g/dL (32.0-36.0); Mean Corpuscular Volume 85.9 fL (80.0-100.0); Monocytes # (auto) 0.5 10 ^3/uL (0-1.3); Neutrophils # (auto) 7.9 10 ^3/uL (1.6-8.6); Red Blood Cells 4.06 10^6/uL (4.5-5.90); Red Cell Distribution Width 16.2 % (11.8-14.3); White Blood Cell 9.2 10^3/uL (4.4-10.8)
[2022-04-09 12:34] LABS: Albumin 2.3 g/dL (3.4-5.0); BUN/Creatinine Ratio 26.5; Calcium 8.3 mg/dL (8.5-10.1); Potassium 4.1 mmol/L (3.5-5.1)
[2022-04-09 12:36] LABS: Bilirubin, Total 0.6 mg/dL (0.2-1.0); Total Protein 6.5 g/dL (6.4-8.2)
[2022-04-09 13:00] VITALS: BP 120/78
[2022-04-09 17:00] VITALS: BP 100/57
[2022-04-09 22:00] VITALS: BP 114/67
[2022-04-10 05:00] VITALS: BP 99/56
[2022-04-10 05:35] LABS: Basophils # (auto) 0.1 10 ^3/uL (0-0.2); Basophils % (auto) 0.6 % (0.0-2.0); Eosinophils # (auto) 0 10 ^3/uL (0-0.8); Eosinophils % (auto) 0.1 % (0.0-7.0); Hematocrit 34.2 % (41.0-53.0); Hemoglobin 11.5 g/dL (13.5-17.5); Lymphocytes % (auto) 10.7 % (10.0-50.0); Mean Corpuscular Hemoglobin 28.6 pg (28.0-32.0); Mean Corpuscular Hgb Conc. 33.5 g/dL (32.0-36.0); Mean Corpuscular Volume 85.5 fL (80.0-100.0); Monocytes # (auto) 0.6 10 ^3/uL (0-1.3); Monocytes % (auto) 6.2 % (0.0-12.0); Neutrophils # (auto) 7.5 10 ^3/uL (1.6-8.6); Neutrophils % (auto) 82.4 % (37.0-80.0); Red Cell Distribution Width 16.1 % (11.8-14.3); White Blood Cell 9.1 10^3/uL (4.4-10.8)
[2022-04-10 05:55] LABS: Potassium 3.7 mmol/L (3.5-5.1)
[2022-04-10 06:01] LABS: Albumin 2.2 g/dL (3.4-5.0); Bilirubin, Total 0.6 mg/dL (0.2-1.0); Calcium 8.2 mg/dL (8.5-10.1); Total Protein 6.2 g/dL (6.4-8.2)
[2022-04-10] MEDS: InsuLIN REG 1unit/0.01ml Soln (100units/ml) SC SCH ×4 (06:08→23:04)
[2022-04-10] MEDS: ACCU-CHEK COMFORT CURVE STRIP VI SCH ×4 (06:08→23:03)
[2022-04-10] MEDS: MIDODRINE HCL 10 MG TAB PO SCH ×3 (06:23→18:55)
[2022-04-10] MEDS: GABAPENTIN 300 MG CAP PO SCH ×3 (06:23→21:55)
[2022-04-10] MEDS: HYDROCORTISONE SOD SUCC 100 MG/2ML INJ VIAL IV SCH ×3 (06:23→21:55)
[2022-04-10 09:00] VITALS: BP 107/63
[2022-04-10] MEDS: VANCOMYCIN 1GM/250ML 250 ML IV SCH (10:29)
[2022-04-10] MEDS: POTASSIUM CHL 20 Meq TABLET PO SCH (10:29)
[2022-04-10] MEDS: LACTULOSE 20Gm/30ML SOLN PO SCH (10:29)
[2022-04-10] MEDS: ENOXAPARIN SOD 150 MG/1 ML SYRINGE SC SCH ×2 (10:30→21:55)
[2022-04-10] MEDS: PANTOPRAZOLE 40 MG TAB PO SCH (10:30)
[2022-04-10] MEDS: NYSTATIN TOPICAL POWDER 15GM TOP SCH ×2 (10:30→21:55)
[2022-04-10] MEDS: DOCUSATE SOD 100 MG CAP PO SCH ×2 (10:30→21:55)
[2022-04-10] MEDS: SODIUM CHLOR 0.9% PF (SALINE LOCK) 10ML VIAL/SYR IV SCH ×2 (10:31→21:55)
[2022-04-10] MEDS: MORPHINE SULF 30 mg ER tab PO SCH ×2 (10:32→21:55)
[2022-04-10] MEDS: FUROSEMIDE 20 MG TAB PO SCH ×2 (10:33→22:00)
[2022-04-10] MEDS: SOTALOL HCL 80 MG TAB PO SCH ×2 (10:50→21:55)
[2022-04-10 13:00] VITALS: BP 114/63
[2022-04-10] MEDS: ALPRAZolam 0.25 MG TAB PO PRN ×2 (13:02→23:55)
[2022-04-10 16:40] VITALS: BP 105/52
[2022-04-10 22:00] VITALS: BP 100/56
[2022-04-10 22:41] VITALS: BP 107/68
[2022-04-11 05:00] VITALS: BP 112/63
[2022-04-11] MEDS: InsuLIN REG 1unit/0.01ml Soln (100units/ml) SC SCH ×4 (06:16→22:17)
[2022-04-11] MEDS: GABAPENTIN 300 MG CAP PO SCH ×3 (06:23→22:16)
[2022-04-11] MEDS: MIDODRINE HCL 10 MG TAB PO SCH ×3 (06:23→17:34)
[2022-04-11] MEDS: HYDROCORTISONE SOD SUCC 100 MG/2ML INJ VIAL IV SCH ×3 (06:24→22:15)
[2022-04-11 06:27] LABS: Basophils # (auto) 0 10 ^3/uL (0-0.2); Basophils % (auto) 0.1 % (0.0-2.0); Eosinophils # (auto) 0 10 ^3/uL (0-0.8); Eosinophils % (auto) 0.3 % (0.0-7.0); Hematocrit 35.3 % (41.0-53.0); Hemoglobin 11.9 g/dL (13.5-17.5); Lymphocytes # (auto) 1.1 10 ^3/uL (0.4-5.4); Lymphocytes % (auto) 12.3 % (10.0-50.0); Mean Corpuscular Hemoglobin 28.7 pg (28.0-32.0); Mean Corpuscular Hgb Conc. 33.8 g/dL (32.0-36.0); Mean Corpuscular Volume 85.1 fL (80.0-100.0); Monocytes # (auto) 0.5 10 ^3/uL (0-1.3); Monocytes % (auto) 5.8 % (0.0-12.0); Neutrophils # (auto) 7.3 10 ^3/uL (1.6-8.6); Neutrophils % (auto) 81.5 % (37.0-80.0); Red Blood Cells 4.14 10^6/uL (4.5-5.90); Red Cell Distribution Width 16.3 % (11.8-14.3)
[2022-04-11] MEDS: ACCU-CHEK COMFORT CURVE STRIP VI SCH ×4 (06:29→22:16)
[2022-04-11 06:43] LABS: Potassium 3.8 mmol/L (3.5-5.1)
[2022-04-11 06:52] LABS: Albumin 2.3 g/dL (3.4-5.0); Bilirubin, Total 0.7 mg/dL (0.2-1.0); Calcium 8.3 mg/dL (8.5-10.1); Phosphorus 3.4 mg/dL (2.5-4.90); Total Protein 6.1 g/dL (6.4-8.2)
[2022-04-11 09:15] VITALS: BP 108/71
[2022-04-11] MEDS: VANCOMYCIN 1GM/250ML 250 ML IV SCH (09:39)
[2022-04-11] MEDS: DOCUSATE SOD 100 MG CAP PO SCH ×2 (09:40→22:15)
[2022-04-11] MEDS: POTASSIUM CHL 20 Meq TABLET PO SCH (09:40)
[2022-04-11] MEDS: ENOXAPARIN SOD 150 MG/1 ML SYRINGE SC SCH ×2 (09:40→22:16)
[2022-04-11] MEDS: LACTULOSE 20Gm/30ML SOLN PO SCH (09:40)
[2022-04-11] MEDS: MORPHINE SULF 30 mg ER tab PO SCH ×2 (09:41→22:16)
[2022-04-11] MEDS: SODIUM CHLOR 0.9% PF (SALINE LOCK) 10ML VIAL/SYR IV SCH ×2 (09:41→22:15)
[2022-04-11] MEDS: PANTOPRAZOLE 40 MG TAB PO SCH (09:41)
[2022-04-11] MEDS: FUROSEMIDE 20 MG TAB PO SCH ×2 (09:43→22:15)
[2022-04-11] MEDS: NYSTATIN TOPICAL POWDER 15GM TOP SCH ×2 (09:44→22:16)
[2022-04-11] MEDS: SOTALOL HCL 80 MG TAB PO SCH ×2 (09:44→22:15)
[2022-04-11] MEDS: ALPRAZolam 0.25 MG TAB PO PRN (12:27)
[2022-04-11 13:00] VITALS: BP 106/66
[2022-04-11 16:28] VITALS: BP 111/76
[2022-04-11] MEDS ORDERED: POTA-220 PO (16:52)
[2022-04-11] MEDS ORDERED: GABA300C10 PO (16:52)
[2022-04-11] MEDS ORDERED: MID10T PO (16:52)
[2022-04-11] MEDS ORDERED: SOTA80TA20 PO (16:52)
[2022-04-11] MEDS ORDERED: PANT40T PO (16:52)
[2022-04-11] MEDS ORDERED: MAGNESIUM CITRATE SOLUTION 300 ML BTL PO ONE (17:30)
[2022-04-11 22:00] VITALS: BP 110/70
[2022-04-12] MEDS: ALPRAZolam 0.25 MG TAB PO PRN ×2 (00:21→12:01)
[2022-04-12 05:00] VITALS: BP 108/64
[2022-04-12] MEDS: VANCOMYCIN 1GM/250ML 250 ML IV SCH (05:10)
[2022-04-12] MEDS: HYDROCORTISONE SOD SUCC 100 MG/2ML INJ VIAL IV SCH ×3 (06:23→22:12)
[2022-04-12] MEDS: GABAPENTIN 300 MG CAP PO SCH ×3 (06:24→22:12)
[2022-04-12] MEDS: ACCU-CHEK COMFORT CURVE STRIP VI SCH ×4 (06:24→22:14)
[2022-04-12] MEDS: MIDODRINE HCL 10 MG TAB PO SCH ×3 (06:24→17:09)
[2022-04-12] MEDS: InsuLIN REG 1unit/0.01ml Soln (100units/ml) SC SCH ×4 (06:30→22:24)
[2022-04-12] MEDS: SODIUM CHLOR 0.9% PF (SALINE LOCK) 10ML VIAL/SYR IV SCH ×2 (08:41→22:27)
[2022-04-12] MEDS: LACTULOSE 20Gm/30ML SOLN PO SCH (08:41)
[2022-04-12] MEDS: DOCUSATE SOD 100 MG CAP PO SCH ×2 (08:51→22:12)
[2022-04-12] MEDS: NYSTATIN TOPICAL POWDER 15GM TOP SCH ×2 (08:52→22:14)
[2022-04-12] MEDS: ENOXAPARIN SOD 150 MG/1 ML SYRINGE SC SCH ×2 (08:57→22:16)
[2022-04-12] MEDS: POTASSIUM CHL 20 Meq TABLET PO SCH (08:58)
[2022-04-12] MEDS: SOTALOL HCL 80 MG TAB PO SCH ×2 (08:59→22:15)
[2022-04-12 09:00] VITALS: BP 100/62
[2022-04-12] MEDS: PANTOPRAZOLE 40 MG TAB PO SCH (09:00)
[2022-04-12] MEDS: FUROSEMIDE 20 MG TAB PO SCH ×2 (09:00→22:00)
[2022-04-12] MEDS: MORPHINE SULF 30 mg ER tab PO SCH ×2 (09:00→22:12)
[2022-04-12 13:00] VITALS: BP 105/69
[2022-04-12 17:00] VITALS: BP 89/45
[2022-04-12] MEDS ORDERED: HYDR-4798 PO (17:23)
[2022-04-12] MEDS ORDERED: ALPR0.25 PO (17:23)
[2022-04-12 22:00] VITALS: BP 110/59
[2022-04-13] MEDS: ALPRAZolam 0.25 MG TAB PO PRN ×3 (00:11→23:57)
[2022-04-13] MEDS: VANCOMYCIN 1GM/250ML 250 ML IV SCH ×2 (02:00→21:50)
[2022-04-13 05:00] VITALS: BP 104/56
[2022-04-13] MEDS: HYDROCORTISONE SOD SUCC 100 MG/2ML INJ VIAL IV SCH ×3 (06:17→22:30)
[2022-04-13] MEDS: GABAPENTIN 300 MG CAP PO SCH ×3 (06:18→22:32)
[2022-04-13] MEDS: MIDODRINE HCL 10 MG TAB PO SCH ×3 (06:19→17:16)
[2022-04-13] MEDS: InsuLIN REG 1unit/0.01ml Soln (100units/ml) SC SCH ×4 (06:22→22:40)
[2022-04-13] MEDS: ACCU-CHEK COMFORT CURVE STRIP VI SCH ×4 (06:23→22:32)
[2022-04-13 09:00] VITALS: BP 109/71
[2022-04-13] MEDS: SODIUM CHLOR 0.9% PF (SALINE LOCK) 10ML VIAL/SYR IV SCH ×2 (09:50→22:30)
[2022-04-13] MEDS: DOCUSATE SOD 100 MG CAP PO SCH ×2 (09:51→22:00)
[2022-04-13] MEDS: SOTALOL HCL 80 MG TAB PO SCH ×2 (09:51→22:31)
[2022-04-13] MEDS: LACTULOSE 20Gm/30ML SOLN PO SCH (09:51)
[2022-04-13] MEDS: NYSTATIN TOPICAL POWDER 15GM TOP SCH ×2 (09:52→22:32)
[2022-04-13] MEDS: POTASSIUM CHL 20 Meq TABLET PO SCH (09:52)
[2022-04-13] MEDS: PANTOPRAZOLE 40 MG TAB PO SCH (09:52)
[2022-04-13] MEDS: MORPHINE SULF 30 mg ER tab PO SCH ×2 (09:52→22:32)
[2022-04-13] MEDS: ENOXAPARIN SOD 150 MG/1 ML SYRINGE SC SCH ×2 (09:52→22:32)
[2022-04-13] MEDS: FUROSEMIDE 20 MG TAB PO SCH ×2 (10:27→22:31)
[2022-04-13 10:53] VITALS: BP 109/71
[2022-04-13 13:00] VITALS: BP 106/61
[2022-04-13 17:00] VITALS: BP 111/65
[2022-04-13 22:00] VITALS: BP 107/61
[2022-04-14 05:00] VITALS: BP 105/61
[2022-04-14] MEDS: HYDROCORTISONE SOD SUCC 100 MG/2ML INJ VIAL IV SCH (06:06)
[2022-04-14] MEDS: GABAPENTIN 300 MG CAP PO SCH (06:06)
[2022-04-14] MEDS: MIDODRINE HCL 10 MG TAB PO SCH (06:07)
[2022-04-14] MEDS: ACCU-CHEK COMFORT CURVE STRIP VI SCH (06:35)
[2022-04-14] MEDS: InsuLIN REG 1unit/0.01ml Soln (100units/ml) SC SCH (06:39)
[2022-04-14 08:30] VITALS: BP 115/66
== END 2022-04-14 10:11 | disposition home or self-care (01) | DRG 813 ==
LOC: EDBD 21:03 → ER 21:13 → TELE 03-22 14:10 → TELE-WESTW 03-22 16:49 → DOU IN ICU 03-27 16:27 → ICU CENTRL 03-28 05:14 → DOU IN ICU 04-07 04:08 → TELE-EAST 04-08 07:48
PROVIDERS: ADMIT Nurse Practitioner; ATTEND Nurse Practitioner
PROC: 05HD33Z Insertion of Infusion Device into Right Cephalic Vein, Percutaneous Approach (ICD-10-PCS; principal; 2022-03-27)
PROC: B54MZZA Ultrasonography of Right Upper Extremity Veins, Guidance (ICD-10-PCS; 2022-03-27)
PROC: 5A09357 Assistance with Respiratory Ventilation, Less than 24 Consecutive Hours, Continuous Positive Airway Pressure (ICD-10-PCS; 2022-03-27)
PROC: 05HD33Z Insertion of Infusion Device into Right Cephalic Vein, Percutaneous Approach (ICD-10-PCS; 2022-03-28)
PROC: B54MZZA Ultrasonography of Right Upper Extremity Veins, Guidance (ICD-10-PCS; 2022-03-28)
PROC: 5A09357 Assistance with Respiratory Ventilation, Less than 24 Consecutive Hours, Continuous Positive Airway Pressure (ICD-10-PCS; 2022-03-28)
PROC: 5A09357 Assistance with Respiratory Ventilation, Less than 24 Consecutive Hours, Continuous Positive Airway Pressure (ICD-10-PCS; 2022-03-29)
PROC: 5A09357 Assistance with Respiratory Ventilation, Less than 24 Consecutive Hours, Continuous Positive Airway Pressure (ICD-10-PCS; 2022-03-30)
PROC: 5A09357 Assistance with Respiratory Ventilation, Less than 24 Consecutive Hours, Continuous Positive Airway Pressure (ICD-10-PCS; 2022-03-31)
PROC: 5A09357 Assistance with Respiratory Ventilation, Less than 24 Consecutive Hours, Continuous Positive Airway Pressure (ICD-10-PCS; 2022-04-02)
PROC: 5A09357 Assistance with Respiratory Ventilation, Less than 24 Consecutive Hours, Continuous Positive Airway Pressure (ICD-10-PCS; 2022-04-03)
PROC: 5A09357 Assistance with Respiratory Ventilation, Less than 24 Consecutive Hours, Continuous Positive Airway Pressure (ICD-10-PCS; 2022-04-04)
PROC: 5A09357 Assistance with Respiratory Ventilation, Less than 24 Consecutive Hours, Continuous Positive Airway Pressure (ICD-10-PCS; 2022-04-05)
PROC: 5A09357 Assistance with Respiratory Ventilation, Less than 24 Consecutive Hours, Continuous Positive Airway Pressure (ICD-10-PCS; 2022-04-06)
PROC: 5A09357 Assistance with Respiratory Ventilation, Less than 24 Consecutive Hours, Continuous Positive Airway Pressure (ICD-10-PCS; 2022-04-07)
PROC: 5A09357 Assistance with Respiratory Ventilation, Less than 24 Consecutive Hours, Continuous Positive Airway Pressure (ICD-10-PCS; 2022-04-08)
PROC: 5A09357 Assistance with Respiratory Ventilation, Less than 24 Consecutive Hours, Continuous Positive Airway Pressure (ICD-10-PCS; 2022-04-09)
PROC: 5A09357 Assistance with Respiratory Ventilation, Less than 24 Consecutive Hours, Continuous Positive Airway Pressure (ICD-10-PCS; 2022-04-10)
PROC: 5A09357 Assistance with Respiratory Ventilation, Less than 24 Consecutive Hours, Continuous Positive Airway Pressure (ICD-10-PCS; 2022-04-11)
PROC: 5A09357 Assistance with Respiratory Ventilation, Less than 24 Consecutive Hours, Continuous Positive Airway Pressure (ICD-10-PCS; 2022-04-12)
DX: T85.628A Displacement of other specified internal prosthetic devices, implants and grafts, initial encounter (principal); J96.21 Acute and chronic respiratory failure with hypoxia; K72.00 Acute and subacute hepatic failure without coma; I50.23 Acute on chronic systolic (congestive) heart failure; E87.3 Alkalosis; I95.9 Hypotension, unspecified; I13.0 Hypertensive heart and chronic kidney disease with heart failure and stage 1 through stage 4 chronic kidney disease, or unspecified chronic kidney disease; E88.09 Other disorders of plasma-protein metabolism, not elsewhere classified; J18.9 Pneumonia, unspecified organism; I42.8 Other cardiomyopathies; N17.9 Acute kidney failure, unspecified; J44.1 Chronic obstructive pulmonary disease with (acute) exacerbation; Z68.43 Body mass index [BMI] 50.0-59.9, adult; E11.22 Type 2 diabetes mellitus with diabetic chronic kidney disease; E66.01 Morbid (severe) obesity due to excess calories; D64.9 Anemia, unspecified; E83.42 Hypomagnesemia; E87.6 Hypokalemia; I48.91 Unspecified atrial fibrillation; I44.7 Left bundle-branch block, unspecified; E78.5 Hyperlipidemia, unspecified; G47.33 Obstructive sleep apnea (adult) (pediatric); N18.9 Chronic kidney disease, unspecified; K59.00 Constipation, unspecified; R74.02 Elevation of levels of lactic acid dehydrogenase [LDH]; G89.29 Other chronic pain; M54.9 Dorsalgia, unspecified; Z20.822 Contact with and (suspected) exposure to COVID-19; R74.8 Abnormal levels of other serum enzymes; Z71.3 Dietary counseling and surveillance; Z74.01 Bed confinement status; Z83.3 Family history of diabetes mellitus; Z86.16 Personal history of COVID-19; Z87.01 Personal history of pneumonia (recurrent); Z91.14 Patient's other noncompliance with medication regimen; Z82.3 Family history of stroke; Z79.899 Other long term (current) drug therapy; Z79.01 Long term (current) use of anticoagulants; Z82.49 Family history of ischemic heart disease and other diseases of the circulatory system
CPT/HCPCS: 36415; 36569; 36600; 71045; 74176; 76604; 80048; 80053; 80202; 82805; 82962; 83615; 83735; 83880; 84100; 84443; 84484; 85025; 85610; 85730; 87040; 87077; 87186; 87205; 93005; 94640; 94660; 97110; 97163; 97530; G0378; J0696; J1815; J1885; J2001; J2405; J3480; P9047; Q0162

== ENCOUNTER 2022-04-15 11:05 | Inpatient (IN) | payer MEDICAID ==
[~2022-04-15] VITALS: Ht 190.5 cm; Wt 177.4 kg
[~2022-04-15 11:05] MED LIST changes: -AMIO200T33 PO; -BUME1TAB25 PO; -CAR3125T PO; -CHOL20007 PO; -CLON-853 PO; -LOSA-69 PO; +MID10T PO; -OMEP20TA PO; +POTA-220 PO; +SOTA80TA20 PO; -ZOLP10TA PO
[2022-04-15] MEDS ORDERED: ASPirin 81 mg TAB PO ONE (11:15)
[2022-04-15 12:20] LABS: Hematocrit 37.7 % (41.0-53.0); Hemoglobin 12.3 g/dL (13.5-17.5); Mean Corpuscular Hemoglobin 28.2 pg (28.0-32.0); Mean Corpuscular Hgb Conc. 32.7 g/dL (32.0-36.0); Mean Corpuscular Volume 86.2 fL (80.0-100.0); Red Blood Cells 4.37 10^6/uL (4.5-5.90); Red Cell Distribution Width 17.1 % (11.8-14.3); White Blood Cell 8.7 10^3/uL (4.4-10.8)
[2022-04-15 12:24] LABS: Basophils % (manual) 0 (0.0-2.0); Blast Cells 0; Eosinophils % (manual) 0 (0-7); Metamyelocytes % 0; Myelocytes % 0; Promyelocytes % 0; Reactive Lymphocytes 0
[2022-04-15 12:45] LABS: Albumin 2.3 g/dL (3.4-5.0); Calcium 7.8 mg/dL (8.5-10.1); Potassium 3.5 mmol/L (3.5-5.1)
[2022-04-15 12:49] LABS: BUN/Creatinine Ratio 23.3; Bilirubin, Total 0.8 mg/dL (0.2-1.0); Total Protein 6.1 g/dL (6.4-8.2)
[2022-04-15 13:31] LABS: Urine Bacteria NONE SEEN /hpf (None Seen); Urine Blood Negative /uL (Negative); Urine Specific Gravity 1.015 (1.001-1.035); Urine WBC 1 /hpf (0 - 3)
[2022-04-15 14:35] LABS: Band Neutrophils % (manual) 2; Lymphocytes % (manual) 12 (10.0-50.0); Monocytes % (manual) 7 (0-12)
[2022-04-15] MEDS ORDERED: TEMAZEPAM 15 MG CAP PO PRN (16:30)
[2022-04-15] MEDS ORDERED: ACETAMINOPHEN 325 MG TAB PO PRN (16:30)
[2022-04-15] MEDS ORDERED: NITROGLYCERIN 0.4 MG SL TAB SL PRN (16:30)
[2022-04-15] MEDS ORDERED: MORPHINE SULFATE INJ 2 MG/ml SYRG IV PRN ×2 (16:30)
[2022-04-15] MEDS: ASCORBIC ACID 500 MG TAB PO SCH (22:19)
[2022-04-16] MEDS: ALPRAZolam 0.5 MG TAB PO PRN ×2 (01:29→12:16)
[2022-04-16 02:20] VITALS: BP 107/55
[2022-04-16 05:45] LABS: Basophils # (auto) 0.1 10 ^3/uL (0-0.2); Basophils % (auto) 0.7 % (0.0-2.0); Eosinophils # (auto) 0.2 10 ^3/uL (0-0.8); Eosinophils % (auto) 2.6 % (0.0-7.0); Hematocrit 34.3 % (41.0-53.0); Hemoglobin 11.6 g/dL (13.5-17.5); Lymphocytes # (auto) 1.4 10 ^3/uL (0.4-5.4); Mean Corpuscular Hemoglobin 29.1 pg (28.0-32.0); Mean Corpuscular Hgb Conc. 33.7 g/dL (32.0-36.0); Mean Corpuscular Volume 86.4 fL (80.0-100.0); Monocytes # (auto) 0.8 10 ^3/uL (0-1.3); Monocytes % (auto) 10.4 % (0.0-12.0); Neutrophils # (auto) 5.3 10 ^3/uL (1.6-8.6); Neutrophils % (auto) 68.3 % (37.0-80.0); Nucleated Red Blood Cells % 0.1 %; Red Blood Cells 3.97 10^6/uL (4.5-5.90); Red Cell Distribution Width 17.2 % (11.8-14.3); White Blood Cell 7.7 10^3/uL (4.4-10.8)
[2022-04-16 06:02] LABS: Potassium 3.8 mmol/L (3.5-5.1)
[2022-04-16 06:09] LABS: BUN/Creatinine Ratio 21.9; Bilirubin, Total 0.9 mg/dL (0.2-1.0); Calcium 7.6 mg/dL (8.5-10.1); Total Protein 5.4 g/dL (6.4-8.2)
[2022-04-16 09:00] VITALS: BP 101/54
[2022-04-16] MEDS: ZINC SULFATE 220mg CAP or TAB PO SCH (09:44)
[2022-04-16] MEDS: ASCORBIC ACID 500 MG TAB PO SCH ×2 (09:44→22:10)
[2022-04-16] MEDS: MULTIPLE VITAMIN TAB PO SCH (09:44)
[2022-04-16] MEDS: HYDROcodone-ACET 5/325MG TAB PO PRN ×2 (09:45→22:23)
[2022-04-16 13:00] VITALS: BP 104/71
[2022-04-16 17:00] VITALS: BP 109/56
[2022-04-16] MEDS ORDERED: FUROSEMIDE 40 MG TAB PO SCH (18:00)
[2022-04-16 22:00] VITALS: BP 104/65
[2022-04-16] MEDS: SOTALOL HCL 80 MG TAB PO SCH (22:00)
[2022-04-16] MEDS: APIXABAN 5 MG TAB PO SCH (22:09)
[2022-04-16] MEDS: ATORVASTATIN 20 MG TAB PO SCH (22:10)
[2022-04-16] MEDS: GABAPENTIN 300 MG CAP PO SCH (22:10)
[2022-04-17] MEDS: ALPRAZolam 0.5 MG TAB PO PRN ×3 (00:13→23:17)
[2022-04-17 05:00] VITALS: BP 101/53
[2022-04-17] MEDS: GABAPENTIN 300 MG CAP PO SCH ×3 (06:22→22:31)
[2022-04-17] MEDS: FUROSEMIDE 40 MG/4 ML VIAL IV SCH ×2 (06:22→18:00)
[2022-04-17] MEDS: SOTALOL HCL 80 MG TAB PO SCH ×2 (08:49→22:30)
[2022-04-17] MEDS: ASCORBIC ACID 500 MG TAB PO SCH ×2 (08:49→22:32)
[2022-04-17] MEDS: MULTIPLE VITAMIN TAB PO SCH (08:49)
[2022-04-17] MEDS: ZINC SULFATE 220mg CAP or TAB PO SCH (08:49)
[2022-04-17] MEDS: APIXABAN 5 MG TAB PO SCH ×2 (08:50→22:31)
[2022-04-17 09:00] VITALS: BP 116/42
[2022-04-17] MEDS: HYDROcodone-ACET 5/325MG TAB PO PRN ×2 (09:00→22:32)
[2022-04-17 09:27] LABS: INR 1.16 (0.9-1.15); Partial Thromboplastin Time 29.7 sec (23.6-33.0)
[2022-04-17] MEDS ORDERED: ASPirin-EC 81 mg tab PO SCH (10:00)
[2022-04-17 14:00] VITALS: BP 94/43
[2022-04-17 14:30] VITALS: BP 130/76
[2022-04-17 14:58] VITALS: BP 120/81
[2022-04-17 17:00] VITALS: BP 94/42
[2022-04-17] MEDS: ATORVASTATIN 20 MG TAB PO SCH (22:31)
[2022-04-18] VITALS (7 sets, daily range): BP systolic 84–107; BP diastolic 50–56
[2022-04-18] MEDS: FUROSEMIDE 40 MG/4 ML VIAL IV SCH ×2 (05:52→18:14)
[2022-04-18] MEDS: GABAPENTIN 300 MG CAP PO SCH ×3 (05:52→22:36)
[2022-04-18] MEDS: HYDROcodone-ACET 5/325MG TAB PO PRN ×2 (11:50→22:37)
[2022-04-18] MEDS: ALPRAZolam 0.5 MG TAB PO PRN ×2 (11:51→23:19)
[2022-04-18] MEDS: APIXABAN 5 MG TAB PO SCH ×2 (11:51→22:35)
[2022-04-18] MEDS: SOTALOL HCL 80 MG TAB PO SCH ×2 (11:52→22:35)
[2022-04-18] MEDS: MULTIPLE VITAMIN TAB PO SCH (11:55)
[2022-04-18] MEDS: ASCORBIC ACID 500 MG TAB PO SCH ×2 (11:55→22:36)
[2022-04-18] MEDS: ZINC SULFATE 220mg CAP or TAB PO SCH (11:55)
[2022-04-18] MEDS: ATORVASTATIN 20 MG TAB PO SCH (22:36)
[2022-04-19] VITALS (8 sets, daily range): BP systolic 91–111; BP diastolic 51–74
[2022-04-19] MEDS: GABAPENTIN 300 MG CAP PO SCH ×3 (06:09→21:26)
[2022-04-19] MEDS: FUROSEMIDE 40 MG/4 ML VIAL IV SCH ×2 (06:09→17:35)
[2022-04-19 07:20] LABS: Basophils # (auto) 0 10 ^3/uL (0-0.2); Basophils % (auto) 0.6 % (0.0-2.0); Eosinophils # (auto) 0.6 10 ^3/uL (0-0.8); Eosinophils % (auto) 9.6 % (0.0-7.0); Hematocrit 33.4 % (41.0-53.0); Lymphocytes # (auto) 1.8 10 ^3/uL (0.4-5.4); Lymphocytes % (auto) 31.4 % (10.0-50.0); Mean Corpuscular Hemoglobin 28.2 pg (28.0-32.0); Mean Corpuscular Hgb Conc. 32.9 g/dL (32.0-36.0); Mean Corpuscular Volume 85.6 fL (80.0-100.0); Monocytes # (auto) 0.6 10 ^3/uL (0-1.3); Monocytes % (auto) 10.5 % (0.0-12.0); Neutrophils # (auto) 2.8 10 ^3/uL (1.6-8.6); Neutrophils % (auto) 47.9 % (37.0-80.0); Nucleated Red Blood Cells % 0.1 %; Red Cell Distribution Width 16.9 % (11.8-14.3); White Blood Cell 5.8 10^3/uL (4.4-10.8)
[2022-04-19 07:27] LABS: Albumin 2.2 g/dL (3.4-5.0); BUN/Creatinine Ratio 13.8; Bilirubin, Total 0.7 mg/dL (0.2-1.0); Calcium 7.8 mg/dL (8.5-10.1); Magnesium 2.2 mg/dL (1.6-2.6); Total Protein 5.8 g/dL (6.4-8.2)
[2022-04-19 07:49] LABS: Potassium 2.9 mmol/L (3.5-5.1)
[2022-04-19] MEDS ORDERED: POTASSIUM CHL 20MEQ/100ML 100 ML IV SCH (09:00)
[2022-04-19] MEDS: MULTIPLE VITAMIN TAB PO SCH (10:56)
[2022-04-19] MEDS: SOTALOL HCL 80 MG TAB PO SCH ×2 (10:56→21:38)
[2022-04-19] MEDS: APIXABAN 5 MG TAB PO SCH ×2 (10:57→21:26)
[2022-04-19] MEDS: ASCORBIC ACID 500 MG TAB PO SCH ×2 (10:57→21:26)
[2022-04-19] MEDS: ZINC SULFATE 220mg CAP or TAB PO SCH (10:57)
[2022-04-19] MEDS: HYDROcodone-ACET 5/325MG TAB PO PRN ×2 (11:00→21:37)
[2022-04-19] MEDS: ALPRAZolam 0.5 MG TAB PO PRN ×2 (13:40→23:44)
[2022-04-19] MEDS ORDERED: POTASSIUM CHL 20 Meq TABLET PO ONE ×2 (13:45→15:45)
[2022-04-19] MEDS: ATORVASTATIN 20 MG TAB PO SCH (21:26)
[2022-04-19] MEDS: HYDROcodone-ACET 10/325MG TAB PO PRN (22:35)
[2022-04-20 05:00] VITALS: BP 105/62
[2022-04-20] MEDS: FUROSEMIDE 40 MG/4 ML VIAL IV SCH ×2 (05:54→17:48)
[2022-04-20] MEDS: GABAPENTIN 300 MG CAP PO SCH ×3 (05:54→23:26)
[2022-04-20 06:08] LABS: Calcium 7.9 mg/dL (8.5-10.1); Potassium 3.4 mmol/L (3.5-5.1)
[2022-04-20 06:13] LABS: BUN/Creatinine Ratio 15.2
[2022-04-20 09:00] VITALS: BP 99/45
[2022-04-20] MEDS: ZINC SULFATE 220mg CAP or TAB PO SCH (09:29)
[2022-04-20] MEDS: APIXABAN 5 MG TAB PO SCH ×2 (09:29→23:26)
[2022-04-20] MEDS: MULTIPLE VITAMIN TAB PO SCH (09:29)
[2022-04-20] MEDS: ASCORBIC ACID 500 MG TAB PO SCH ×2 (09:30→23:26)
[2022-04-20] MEDS: SOTALOL HCL 80 MG TAB PO SCH ×2 (09:33→23:25)
[2022-04-20 09:34] VITALS: BP 103/65
[2022-04-20] MEDS: HYDROcodone-ACET 10/325MG TAB PO PRN ×2 (09:39→21:20)
[2022-04-20] MEDS: ALPRAZolam 0.5 MG TAB PO PRN ×2 (11:53→23:39)
[2022-04-20] MEDS ORDERED: PANTOPRAZOLE 40 MG TAB PO ONE (16:15)
[2022-04-20 17:22] VITALS: BP 118/70
[2022-04-20 22:00] VITALS: BP_SYST 138; BP_SYST 95; BP_DIAS 53; BP_DIAS 66
[2022-04-20] MEDS: ATORVASTATIN 20 MG TAB PO SCH (23:26)
[2022-04-20] MEDS: POTASSIUM CHL 20 Meq TABLET PO SCH (23:26)
[2022-04-21 05:00] VITALS: BP 96/58
[2022-04-21] MEDS: GABAPENTIN 300 MG CAP PO SCH ×3 (05:47→22:35)
[2022-04-21] MEDS: FUROSEMIDE 40 MG/4 ML VIAL IV SCH ×2 (05:48→17:55)
[2022-04-21 06:27] LABS: Phosphorus 2.9 mg/dL (2.5-4.90); Potassium 3.2 mmol/L (3.5-5.1)
[2022-04-21 08:00] VITALS: BP 112/54
[2022-04-21] MEDS ORDERED: POTASSIUM CHL 20 Meq TABLET PO ONE (09:00)
[2022-04-21] MEDS: ZINC SULFATE 220mg CAP or TAB PO SCH (10:15)
[2022-04-21] MEDS: ASCORBIC ACID 500 MG TAB PO SCH ×2 (10:16→22:38)
[2022-04-21] MEDS: PANTOPRAZOLE 40 MG TAB PO SCH (10:16)
[2022-04-21] MEDS: POTASSIUM CHL 20 Meq TABLET PO SCH (10:16)
[2022-04-21] MEDS: MULTIPLE VITAMIN TAB PO SCH (10:16)
[2022-04-21] MEDS: APIXABAN 5 MG TAB PO SCH ×2 (10:31→22:35)
[2022-04-21] MEDS: HYDROcodone-ACET 10/325MG TAB PO PRN ×3 (10:31→23:19)
[2022-04-21] MEDS: SOTALOL HCL 80 MG TAB PO SCH ×2 (10:32→22:37)
[2022-04-21 12:00] VITALS: BP 103/55
[2022-04-21] MEDS: ALPRAZolam 0.5 MG TAB PO PRN ×2 (13:01→23:43)
[2022-04-21] MEDS ORDERED: ALPR0.25 PO (14:29)
[2022-04-21] MEDS ORDERED: FURO20TA3 PO (14:29)
[2022-04-21 16:00] VITALS: BP 109/68
[2022-04-21] MEDS: ATORVASTATIN 20 MG TAB PO SCH (22:37)
[2022-04-21] MEDS: NYSTATIN TOPICAL POWDER 15GM TOP SCH (22:39)
[2022-04-21 23:55] VITALS: BP 101/53
[2022-04-22] VITALS (7 sets, daily range): BP systolic 94–133; BP diastolic 48–102
[2022-04-22] MEDS: GABAPENTIN 300 MG CAP PO SCH ×3 (05:14→21:50)
[2022-04-22] MEDS: FUROSEMIDE 40 MG/4 ML VIAL IV SCH ×2 (05:15→16:46)
[2022-04-22] MEDS: HYDROcodone-ACET 10/325MG TAB PO PRN ×4 (05:20→23:43)
[2022-04-22 06:30] LABS: BUN/Creatinine Ratio 14.8; Calcium 7.9 mg/dL (8.5-10.1); Magnesium 1.9 mg/dL (1.6-2.6); Potassium 3.5 mmol/L (3.5-5.1)
[2022-04-22] MEDS ORDERED: DOXY-346 PO (08:43)
[2022-04-22] MEDS: ASCORBIC ACID 500 MG TAB PO SCH ×2 (09:07→21:51)
[2022-04-22] MEDS: MULTIPLE VITAMIN TAB PO SCH (09:07)
[2022-04-22] MEDS: APIXABAN 5 MG TAB PO SCH ×2 (09:07→21:52)
[2022-04-22] MEDS: PANTOPRAZOLE 40 MG TAB PO SCH (09:07)
[2022-04-22] MEDS: POTASSIUM CHL 20 Meq TABLET PO SCH (09:07)
[2022-04-22] MEDS: ZINC SULFATE 220mg CAP or TAB PO SCH (09:07)
[2022-04-22] MEDS: DOXYCYCLINE 100 MG TAB/CAP PO SCH ×2 (09:08→21:51)
[2022-04-22] MEDS: SOTALOL HCL 80 MG TAB PO SCH ×2 (09:08→21:51)
[2022-04-22] MEDS: NYSTATIN TOPICAL POWDER 15GM TOP SCH ×2 (09:09→21:53)
[2022-04-22] MEDS: ALPRAZolam 0.5 MG TAB PO PRN ×2 (11:28→23:43)
[2022-04-22] MEDS: ATORVASTATIN 20 MG TAB PO SCH (21:51)
[2022-04-23 05:00] VITALS: BP 110/64
[2022-04-23] MEDS: GABAPENTIN 300 MG CAP PO SCH ×3 (05:36→22:55)
[2022-04-23] MEDS: FUROSEMIDE 40 MG/4 ML VIAL IV SCH ×2 (05:36→17:48)
[2022-04-23] MEDS: HYDROcodone-ACET 10/325MG TAB PO PRN ×4 (05:43→23:54)
[2022-04-23 05:51] LABS: Calcium 8.3 mg/dL (8.5-10.1); Magnesium 1.7 mg/dL (1.6-2.6); Potassium 3.7 mmol/L (3.5-5.1)
[2022-04-23 05:54] LABS: BUN/Creatinine Ratio 13.8
[2022-04-23 09:03] VITALS: BP 110/73
[2022-04-23] MEDS: SOTALOL HCL 80 MG TAB PO SCH ×2 (10:11→22:54)
[2022-04-23] MEDS: ZINC SULFATE 220mg CAP or TAB PO SCH (10:11)
[2022-04-23] MEDS: APIXABAN 5 MG TAB PO SCH ×2 (10:12→22:55)
[2022-04-23] MEDS: POTASSIUM CHL 20 Meq TABLET PO SCH (10:13)
[2022-04-23] MEDS: MULTIPLE VITAMIN TAB PO SCH (10:14)
[2022-04-23] MEDS: ASCORBIC ACID 500 MG TAB PO SCH ×2 (10:14→22:56)
[2022-04-23] MEDS: DOXYCYCLINE 100 MG TAB/CAP PO SCH ×2 (10:14→22:55)
[2022-04-23] MEDS: PANTOPRAZOLE 40 MG TAB PO SCH (10:14)
[2022-04-23] MEDS: NYSTATIN TOPICAL POWDER 15GM TOP SCH ×2 (11:43→22:00)
[2022-04-23] MEDS: ALPRAZolam 0.5 MG TAB PO PRN (11:48)
[2022-04-23 14:00] VITALS: BP_SYST 108; BP_SYST 98; BP_DIAS 50; BP_DIAS 72
[2022-04-23] MEDS ORDERED: DEXTROSE (50%) 50ML SYRG IV PRN (21:00)
[2022-04-23 21:32] VITALS: BP 106/63
[2022-04-23] MEDS: ATORVASTATIN 20 MG TAB PO SCH (22:55)
[2022-04-23] MEDS: ACCU-CHEK COMFORT CURVE STRIP VI SCH (22:56)
[2022-04-23] MEDS: InsuLIN REG 1unit/0.01ml Soln (100units/ml) SC SCH (22:58)
[2022-04-24] VITALS (7 sets, daily range): BP systolic 96–131; BP diastolic 58–83
[2022-04-24] MEDS: ALPRAZolam 0.5 MG TAB PO PRN ×3 (00:04→21:39)
[2022-04-24 05:13] LABS: Basophils # (auto) 0.1 10 ^3/uL (0-0.2); Basophils % (auto) 1.1 % (0.0-2.0); Eosinophils # (auto) 0.2 10 ^3/uL (0-0.8); Eosinophils % (auto) 2.4 % (0.0-7.0); Hematocrit 31.2 % (41.0-53.0); Hemoglobin 10.5 g/dL (13.5-17.5); Lymphocytes % (auto) 27.8 % (10.0-50.0); Mean Corpuscular Hemoglobin 28.7 pg (28.0-32.0); Mean Corpuscular Hgb Conc. 33.7 g/dL (32.0-36.0); Mean Corpuscular Volume 84.9 fL (80.0-100.0); Monocytes # (auto) 0.7 10 ^3/uL (0-1.3); Monocytes % (auto) 9.1 % (0.0-12.0); Neutrophils # (auto) 4.4 10 ^3/uL (1.6-8.6); Neutrophils % (auto) 59.6 % (37.0-80.0); Red Blood Cells 3.67 10^6/uL (4.5-5.90); Red Cell Distribution Width 16.1 % (11.8-14.3); White Blood Cell 7.4 10^3/uL (4.4-10.8)
[2022-04-24 05:36] LABS: Potassium 3.6 mmol/L (3.5-5.1)
[2022-04-24 05:45] LABS: Albumin 2.4 g/dL (3.4-5.0); BUN/Creatinine Ratio 19.2; Bilirubin, Total 0.8 mg/dL (0.2-1.0); Magnesium 1.5 mg/dL (1.6-2.6); Total Protein 6.7 g/dL (6.4-8.2)
[2022-04-24] MEDS: FUROSEMIDE 40 MG/4 ML VIAL IV SCH ×3 (05:52→18:10)
[2022-04-24] MEDS: ACCU-CHEK COMFORT CURVE STRIP VI SCH ×4 (05:53→21:37)
[2022-04-24] MEDS: InsuLIN REG 1unit/0.01ml Soln (100units/ml) SC SCH ×4 (05:53→21:42)
[2022-04-24] MEDS: GABAPENTIN 300 MG CAP PO SCH ×3 (05:53→21:34)
[2022-04-24] MEDS: HYDROcodone-ACET 10/325MG TAB PO PRN ×3 (05:54→21:38)
[2022-04-24] MEDS: ZINC SULFATE 220mg CAP or TAB PO SCH (09:45)
[2022-04-24] MEDS: POTASSIUM CHL 20 Meq TABLET PO SCH (09:46)
[2022-04-24] MEDS: MULTIPLE VITAMIN TAB PO SCH (09:46)
[2022-04-24] MEDS: APIXABAN 5 MG TAB PO SCH ×2 (09:46→21:34)
[2022-04-24] MEDS: SOTALOL HCL 80 MG TAB PO SCH ×2 (09:46→21:32)
[2022-04-24] MEDS: ASCORBIC ACID 500 MG TAB PO SCH ×2 (09:47→21:36)
[2022-04-24] MEDS: NYSTATIN TOPICAL POWDER 15GM TOP SCH ×2 (09:47→21:58)
[2022-04-24] MEDS: PANTOPRAZOLE 40 MG TAB PO SCH (09:47)
[2022-04-24] MEDS: DOXYCYCLINE 100 MG TAB/CAP PO SCH ×2 (09:47→21:35)
[2022-04-24] MEDS: ATORVASTATIN 20 MG TAB PO SCH (21:34)
[2022-04-25] MEDS: HYDROcodone-ACET 10/325MG TAB PO PRN ×4 (04:44→22:16)
[2022-04-25 05:16] VITALS: BP 99/75
[2022-04-25 06:11] LABS: Calcium 8.6 mg/dL (8.5-10.1); Magnesium 1.5 mg/dL (1.6-2.6); Potassium 3.3 mmol/L (3.5-5.1)
[2022-04-25 06:13] LABS: BUN/Creatinine Ratio 15.7
[2022-04-25] MEDS: GABAPENTIN 300 MG CAP PO SCH ×3 (06:29→22:18)
[2022-04-25] MEDS: FUROSEMIDE 40 MG/4 ML VIAL IV SCH ×2 (06:29→17:54)
[2022-04-25] MEDS: InsuLIN REG 1unit/0.01ml Soln (100units/ml) SC SCH ×4 (06:30→22:23)
[2022-04-25] MEDS: ACCU-CHEK COMFORT CURVE STRIP VI SCH ×4 (06:30→22:19)
[2022-04-25 09:07] VITALS: BP 107/57
[2022-04-25] MEDS: SOTALOL HCL 80 MG TAB PO SCH ×2 (10:09→22:18)
[2022-04-25] MEDS: POTASSIUM CHL 20 Meq TABLET PO SCH (10:10)
[2022-04-25] MEDS: APIXABAN 5 MG TAB PO SCH ×2 (10:10→22:18)
[2022-04-25] MEDS: ASCORBIC ACID 500 MG TAB PO SCH ×2 (10:10→22:19)
[2022-04-25] MEDS: NYSTATIN TOPICAL POWDER 15GM TOP SCH ×2 (10:10→22:19)
[2022-04-25] MEDS: ZINC SULFATE 220mg CAP or TAB PO SCH (10:10)
[2022-04-25] MEDS: DOXYCYCLINE 100 MG TAB/CAP PO SCH ×2 (10:10→22:19)
[2022-04-25] MEDS: MULTIPLE VITAMIN TAB PO SCH (10:10)
[2022-04-25] MEDS: PANTOPRAZOLE 40 MG TAB PO SCH (10:10)
[2022-04-25 13:00] VITALS: BP 101/64
[2022-04-25] MEDS: ALPRAZolam 0.5 MG TAB PO PRN (13:02)
[2022-04-25] MEDS: ALUM & MAG HYDROX-SIMETH LIQ(MAALOX) 30 ML PO PRN (14:17)
[2022-04-25 17:00] VITALS: BP 103/61
[2022-04-25 22:00] VITALS: BP 120/63
[2022-04-25] MEDS: ATORVASTATIN 20 MG TAB PO SCH (22:18)
[2022-04-25 23:55] VITALS: BP 102/56
[2022-04-26] MEDS: ALPRAZolam 0.5 MG TAB PO PRN ×2 (00:12→23:56)
[2022-04-26] MEDS: HYDROcodone-ACET 10/325MG TAB PO PRN ×3 (04:08→22:01)
[2022-04-26 05:00] VITALS: BP 103/57
[2022-04-26] MEDS: InsuLIN REG 1unit/0.01ml Soln (100units/ml) SC SCH ×4 (06:04→22:10)
[2022-04-26] MEDS: ACCU-CHEK COMFORT CURVE STRIP VI SCH ×4 (06:04→22:02)
[2022-04-26] MEDS: GABAPENTIN 300 MG CAP PO SCH ×3 (06:08→22:01)
[2022-04-26] MEDS: FUROSEMIDE 40 MG/4 ML VIAL IV SCH ×2 (06:09→18:12)
[2022-04-26 09:00] VITALS: BP 104/57
[2022-04-26] MEDS: APIXABAN 5 MG TAB PO SCH ×2 (12:06→22:00)
[2022-04-26] MEDS: ZINC SULFATE 220mg CAP or TAB PO SCH (12:06)
[2022-04-26] MEDS: SOTALOL HCL 80 MG TAB PO SCH ×2 (12:06→22:02)
[2022-04-26] MEDS: MULTIPLE VITAMIN TAB PO SCH (12:07)
[2022-04-26] MEDS: POTASSIUM CHL 20 Meq TABLET PO SCH (12:07)
[2022-04-26] MEDS: PANTOPRAZOLE 40 MG TAB PO SCH (12:07)
[2022-04-26] MEDS: ASCORBIC ACID 500 MG TAB PO SCH ×2 (12:07→22:00)
[2022-04-26] MEDS: DOXYCYCLINE 100 MG TAB/CAP PO SCH ×2 (12:07→22:00)
[2022-04-26] MEDS: NYSTATIN TOPICAL POWDER 15GM TOP SCH ×2 (12:08→22:02)
[2022-04-26 13:00] VITALS: BP 105/57
[2022-04-26 17:00] VITALS: BP 127/74
[2022-04-26] MEDS: ATORVASTATIN 20 MG TAB PO SCH (21:59)
[2022-04-26 22:00] VITALS: BP 116/66
[2022-04-26 23:00] VITALS: BP 110/71
[2022-04-27] MEDS: ALBUTEROL SULF 2.5 MG/0.5ML(0.5%) NEB SOLN NEB PRN (00:19)
[2022-04-27 05:00] VITALS: BP 126/72
[2022-04-27] MEDS: InsuLIN REG 1unit/0.01ml Soln (100units/ml) SC SCH ×4 (05:31→21:28)
[2022-04-27] MEDS: FUROSEMIDE 40 MG/4 ML VIAL IV SCH ×2 (05:31→18:00)
[2022-04-27] MEDS: ACCU-CHEK COMFORT CURVE STRIP VI SCH ×4 (05:31→21:28)
[2022-04-27] MEDS: GABAPENTIN 300 MG CAP PO SCH ×3 (05:31→21:27)
[2022-04-27] MEDS: HYDROcodone-ACET 10/325MG TAB PO PRN ×2 (06:22→18:25)
[2022-04-27 09:00] VITALS: BP 104/57
[2022-04-27] MEDS: SOTALOL HCL 80 MG TAB PO SCH ×2 (10:00→21:27)
[2022-04-27] MEDS: POTASSIUM CHL 20 Meq TABLET PO SCH (10:00)
[2022-04-27] MEDS: MULTIPLE VITAMIN TAB PO SCH (10:00)
[2022-04-27] MEDS: NYSTATIN TOPICAL POWDER 15GM TOP SCH ×2 (10:00→21:28)
[2022-04-27] MEDS: PANTOPRAZOLE 40 MG TAB PO SCH (10:00)
[2022-04-27] MEDS: DOXYCYCLINE 100 MG TAB/CAP PO SCH ×2 (10:00→21:27)
[2022-04-27] MEDS: ZINC SULFATE 220mg CAP or TAB PO SCH (10:00)
[2022-04-27] MEDS: ASCORBIC ACID 500 MG TAB PO SCH ×2 (10:00→21:28)
[2022-04-27] MEDS: APIXABAN 5 MG TAB PO SCH ×2 (10:00→21:27)
[2022-04-27 11:39] LABS: Magnesium 1.4 mg/dL (1.6-2.6); Potassium 3.3 mmol/L (3.5-5.1)
[2022-04-27 13:00] VITALS: BP 118/65
[2022-04-27 17:00] VITALS: BP 121/61
[2022-04-27] MEDS ORDERED: SENNA 8.6 MG TAB PO STA (17:09)
[2022-04-27] MEDS ORDERED: DOCUSATE SOD 100 MG CAP PO PRN (17:15)
[2022-04-27] MEDS: ATORVASTATIN 20 MG TAB PO SCH (21:27)
[2022-04-27 22:00] VITALS: BP 96/59
[2022-04-27] MEDS: ALPRAZolam 0.5 MG TAB PO PRN (23:39)
[2022-04-28] MEDS: HYDROcodone-ACET 10/325MG TAB PO PRN ×4 (00:29→19:58)
[2022-04-28 03:57] VITALS: BP 96/59
[2022-04-28 04:00] VITALS: BP 120/68
[2022-04-28] MEDS: InsuLIN REG 1unit/0.01ml Soln (100units/ml) SC SCH ×4 (06:22→22:15)
[2022-04-28] MEDS: GABAPENTIN 300 MG CAP PO SCH ×3 (06:22→22:12)
[2022-04-28] MEDS: ACCU-CHEK COMFORT CURVE STRIP VI SCH ×4 (06:22→22:12)
[2022-04-28] MEDS: FUROSEMIDE 40 MG/4 ML VIAL IV SCH ×2 (06:22→17:32)
[2022-04-28] MEDS ORDERED: diphenhdrAMINE HCL 25 MG CAP PO ONE (08:45)
[2022-04-28 09:00] VITALS: BP 118/69
[2022-04-28] MEDS: APIXABAN 5 MG TAB PO SCH ×2 (09:44→22:11)
[2022-04-28] MEDS: SOTALOL HCL 80 MG TAB PO SCH ×2 (09:44→22:11)
[2022-04-28] MEDS: DOXYCYCLINE 100 MG TAB/CAP PO SCH ×2 (09:45→22:12)
[2022-04-28] MEDS: POTASSIUM CHL 20 Meq TABLET PO SCH (09:45)
[2022-04-28] MEDS: ZINC SULFATE 220mg CAP or TAB PO SCH (09:45)
[2022-04-28] MEDS: MULTIPLE VITAMIN TAB PO SCH (09:45)
[2022-04-28] MEDS: ASCORBIC ACID 500 MG TAB PO SCH ×2 (09:45→22:11)
[2022-04-28] MEDS: PANTOPRAZOLE 40 MG TAB PO SCH (09:45)
[2022-04-28] MEDS: NYSTATIN TOPICAL POWDER 15GM TOP SCH ×2 (09:47→22:18)
[2022-04-28 13:00] VITALS: BP 110/62
[2022-04-28] MEDS: MAGNESIUM SULFATE 1GM/100ML 100 ML IV SCH ×2 (16:00→17:31)
[2022-04-28 17:00] VITALS: BP 116/65
[2022-04-28] MEDS: POTASSIUM CHL 20MEQ/100ML 100 ML IV SCH ×2 (18:44→23:03)
[2022-04-28] MEDS: ALPRAZolam 0.5 MG TAB PO PRN ×2 (19:58→22:06)
[2022-04-28 22:00] VITALS: BP 120/69
[2022-04-28] MEDS: ATORVASTATIN 20 MG TAB PO SCH (22:11)
[2022-04-28] MEDS: SENNA 8.6 MG TAB PO SCH (22:11)
[2022-04-28] MEDS ORDERED: POTASSIUM CHL 20MEQ/100ML 100 ML IV ONE (22:55)
[2022-04-29 05:00] VITALS: BP 107/63
[2022-04-29] MEDS: FUROSEMIDE 40 MG/4 ML VIAL IV SCH ×3 (06:25→18:33)
[2022-04-29] MEDS: GABAPENTIN 300 MG CAP PO SCH ×3 (06:26→22:09)
[2022-04-29] MEDS: InsuLIN REG 1unit/0.01ml Soln (100units/ml) SC SCH ×4 (06:26→22:13)
[2022-04-29] MEDS: HYDROcodone-ACET 10/325MG TAB PO PRN ×3 (06:26→18:36)
[2022-04-29] MEDS: ACCU-CHEK COMFORT CURVE STRIP VI SCH ×4 (06:26→22:11)
[2022-04-29 09:00] VITALS: BP 124/69
[2022-04-29] MEDS: DOXYCYCLINE 100 MG TAB/CAP PO SCH ×2 (09:08→22:09)
[2022-04-29] MEDS: ZINC SULFATE 220mg CAP or TAB PO SCH (09:08)
[2022-04-29] MEDS: APIXABAN 5 MG TAB PO SCH ×2 (09:08→22:09)
[2022-04-29] MEDS: PANTOPRAZOLE 40 MG TAB PO SCH (09:08)
[2022-04-29] MEDS: MULTIPLE VITAMIN TAB PO SCH (09:08)
[2022-04-29] MEDS: ASCORBIC ACID 500 MG TAB PO SCH ×2 (09:08→22:09)
[2022-04-29] MEDS: POTASSIUM CHL 20 Meq TABLET PO SCH (09:09)
[2022-04-29] MEDS: SOTALOL HCL 80 MG TAB PO SCH ×2 (09:10→22:10)
[2022-04-29] MEDS: NYSTATIN TOPICAL POWDER 15GM TOP SCH ×2 (10:45→22:11)
[2022-04-29] MEDS: ALPRAZolam 0.5 MG TAB PO PRN ×2 (11:15→23:16)
[2022-04-29 13:00] VITALS: BP 102/64
[2022-04-29 16:57] VITALS: BP 103/62
[2022-04-29 22:00] VITALS: BP 101/61
[2022-04-29] MEDS: SENNA 8.6 MG TAB PO SCH (22:09)
[2022-04-29] MEDS: ATORVASTATIN 20 MG TAB PO SCH (22:09)
[2022-04-30] MEDS: HYDROcodone-ACET 10/325MG TAB PO PRN ×3 (00:40→13:22)
[2022-04-30 05:00] VITALS: BP 140/54
[2022-04-30 06:43] LABS: Albumin 2.2 g/dL (3.4-5.0); BUN/Creatinine Ratio 15.6; Calcium 8.7 mg/dL (8.5-10.1)
[2022-04-30] MEDS: FUROSEMIDE 40 MG/4 ML VIAL IV SCH ×2 (06:45→17:19)
[2022-04-30] MEDS: GABAPENTIN 300 MG CAP PO SCH ×3 (06:45→22:05)
[2022-04-30 06:46] LABS: Bilirubin, Total 0.8 mg/dL (0.2-1.0); Total Protein 7.1 g/dL (6.4-8.2)
[2022-04-30] MEDS: InsuLIN REG 1unit/0.01ml Soln (100units/ml) SC SCH ×4 (06:46→22:06)
[2022-04-30] MEDS: ACCU-CHEK COMFORT CURVE STRIP VI SCH ×4 (06:46→22:05)
[2022-04-30 08:00] VITALS: BP 113/58
[2022-04-30] MEDS: APIXABAN 5 MG TAB PO SCH ×2 (09:30→22:04)
[2022-04-30] MEDS: SOTALOL HCL 80 MG TAB PO SCH ×2 (09:30→22:04)
[2022-04-30] MEDS: ZINC SULFATE 220mg CAP or TAB PO SCH (09:30)
[2022-04-30] MEDS: POTASSIUM CHL 20 Meq TABLET PO SCH (09:30)
[2022-04-30] MEDS: PANTOPRAZOLE 40 MG TAB PO SCH (09:31)
[2022-04-30] MEDS: DOXYCYCLINE 100 MG TAB/CAP PO SCH ×2 (09:31→22:05)
[2022-04-30] MEDS: MULTIPLE VITAMIN TAB PO SCH (09:31)
[2022-04-30] MEDS: ASCORBIC ACID 500 MG TAB PO SCH ×2 (09:31→22:05)
[2022-04-30] MEDS: NYSTATIN TOPICAL POWDER 15GM TOP SCH ×2 (10:03→22:05)
[2022-04-30] MEDS: ALPRAZolam 0.5 MG TAB PO PRN ×2 (11:48→23:00)
[2022-04-30 12:00] VITALS: BP 124/75
[2022-04-30 16:00] VITALS: BP 134/68
[2022-04-30 22:00] VITALS: BP 142/64
[2022-04-30] MEDS: ATORVASTATIN 20 MG TAB PO SCH (22:04)
[2022-04-30] MEDS: SENNA 8.6 MG TAB PO SCH (22:05)
[2022-05-01] MEDS: ALBUTEROL SULF 2.5 MG/0.5ML(0.5%) NEB SOLN NEB PRN (00:42)
[2022-05-01 05:00] VITALS: BP 115/60
[2022-05-01] MEDS: FUROSEMIDE 40 MG/4 ML VIAL IV SCH ×2 (06:05→17:08)
[2022-05-01] MEDS: ACCU-CHEK COMFORT CURVE STRIP VI SCH ×4 (06:06→21:30)
[2022-05-01] MEDS: GABAPENTIN 300 MG CAP PO SCH ×3 (06:06→21:24)
[2022-05-01] MEDS: InsuLIN REG 1unit/0.01ml Soln (100units/ml) SC SCH ×4 (06:06→21:32)
[2022-05-01 08:00] VITALS: BP 129/69
[2022-05-01] MEDS: HYDROcodone-ACET 10/325MG TAB PO PRN ×2 (08:51→17:13)
[2022-05-01] MEDS: APIXABAN 5 MG TAB PO SCH ×2 (08:51→21:24)
[2022-05-01] MEDS: SOTALOL HCL 80 MG TAB PO SCH ×2 (08:51→21:22)
[2022-05-01] MEDS: ZINC SULFATE 220mg CAP or TAB PO SCH (08:51)
[2022-05-01] MEDS: MULTIPLE VITAMIN TAB PO SCH (08:52)
[2022-05-01] MEDS: NYSTATIN TOPICAL POWDER 15GM TOP SCH ×2 (08:52→21:29)
[2022-05-01] MEDS: DOXYCYCLINE 100 MG TAB/CAP PO SCH ×2 (08:52→21:25)
[2022-05-01] MEDS: ASCORBIC ACID 500 MG TAB PO SCH ×2 (08:52→21:24)
[2022-05-01] MEDS: POTASSIUM CHL 20 Meq TABLET PO SCH (08:52)
[2022-05-01] MEDS: PANTOPRAZOLE 40 MG TAB PO SCH (08:52)
[2022-05-01] MEDS: ALPRAZolam 0.5 MG TAB PO PRN ×2 (10:23→23:27)
[2022-05-01 12:00] VITALS: BP 124/61
[2022-05-01 16:00] VITALS: BP 112/74
[2022-05-01] MEDS: ATORVASTATIN 20 MG TAB PO SCH (21:24)
[2022-05-01] MEDS: SENNA 8.6 MG TAB PO SCH (21:25)
[2022-05-01 21:52] VITALS: BP 110/63
[2022-05-02] MEDS: HYDROcodone-ACET 10/325MG TAB PO PRN ×3 (00:22→15:46)
[2022-05-02 05:13] VITALS: BP 115/66
[2022-05-02] MEDS: FUROSEMIDE 40 MG/4 ML VIAL IV SCH ×2 (06:14→18:00)
[2022-05-02] MEDS: GABAPENTIN 300 MG CAP PO SCH ×3 (06:15→21:55)
[2022-05-02] MEDS: ACCU-CHEK COMFORT CURVE STRIP VI SCH ×4 (06:29→21:59)
[2022-05-02] MEDS: InsuLIN REG 1unit/0.01ml Soln (100units/ml) SC SCH ×4 (06:30→22:01)
[2022-05-02 08:25] VITALS: BP 113/63
[2022-05-02] MEDS: SOTALOL HCL 80 MG TAB PO SCH ×2 (09:09→21:54)
[2022-05-02] MEDS: POTASSIUM CHL 20 Meq TABLET PO SCH (09:10)
[2022-05-02] MEDS: APIXABAN 5 MG TAB PO SCH ×2 (09:10→21:55)
[2022-05-02] MEDS: ZINC SULFATE 220mg CAP or TAB PO SCH (09:10)
[2022-05-02] MEDS: PANTOPRAZOLE 40 MG TAB PO SCH (09:11)
[2022-05-02] MEDS: DOXYCYCLINE 100 MG TAB/CAP PO SCH ×2 (09:11→21:55)
[2022-05-02] MEDS: ASCORBIC ACID 500 MG TAB PO SCH ×2 (09:11→21:55)
[2022-05-02] MEDS: MULTIPLE VITAMIN TAB PO SCH (09:11)
[2022-05-02] MEDS: NYSTATIN TOPICAL POWDER 15GM TOP SCH ×2 (09:12→22:02)
[2022-05-02] MEDS: ALPRAZolam 0.5 MG TAB PO PRN ×2 (11:26→23:35)
[2022-05-02] MEDS: ALUM & MAG HYDROX-SIMETH LIQ(MAALOX) 30 ML PO PRN (12:28)
[2022-05-02 12:56] VITALS: BP 110/67
[2022-05-02] MEDS ORDERED: PANTOPRAZOLE 40 MG/10 ML VIAL INJ IV STA (15:55)
[2022-05-02 17:00] VITALS: BP 115/64
[2022-05-02] MEDS ORDERED: ALPR0.25 PO (18:35)
[2022-05-02] MEDS: ATORVASTATIN 20 MG TAB PO SCH (21:55)
[2022-05-02 22:00] VITALS: BP 108/65
[2022-05-02] MEDS: SENNA 8.6 MG TAB PO SCH (22:00)
[2022-05-03 05:32] VITALS: BP 114/65
[2022-05-03 05:49] LABS: Basophils # (auto) 0 10 ^3/uL (0-0.2); Basophils % (auto) 0.7 % (0.0-2.0); Eosinophils # (auto) 0.2 10 ^3/uL (0-0.8); Eosinophils % (auto) 2.8 % (0.0-7.0); Hematocrit 28.8 % (41.0-53.0); Hemoglobin 9.5 g/dL (13.5-17.5); Mean Corpuscular Hemoglobin 27.8 pg (28.0-32.0); Mean Corpuscular Volume 84.2 fL (80.0-100.0); Monocytes % (auto) 15.8 % (0.0-12.0); Neutrophils # (auto) 3.3 10 ^3/uL (1.6-8.6); Neutrophils % (auto) 49.7 % (37.0-80.0); Nucleated Red Blood Cells % 0.2 %; Red Blood Cells 3.42 10^6/uL (4.5-5.90); Red Cell Distribution Width 15.7 % (11.8-14.3); White Blood Cell 6.6 10^3/uL (4.4-10.8)
[2022-05-03 06:07] LABS: Potassium 3.4 mmol/L (3.5-5.1)
[2022-05-03 06:15] LABS: Albumin 2.4 g/dL (3.4-5.0); BUN/Creatinine Ratio 16.7; Calcium 8.8 mg/dL (8.5-10.1); Magnesium 1.7 mg/dL (1.6-2.6)
[2022-05-03 06:18] LABS: Bilirubin, Total 0.7 mg/dL (0.2-1.0); Phosphorus 3.8 mg/dL (2.5-4.90); Total Protein 6.9 g/dL (6.4-8.2)
[2022-05-03] MEDS: GABAPENTIN 300 MG CAP PO SCH (06:27)
[2022-05-03] MEDS: FUROSEMIDE 40 MG/4 ML VIAL IV SCH (06:27)
[2022-05-03] MEDS: ACCU-CHEK COMFORT CURVE STRIP VI SCH ×2 (06:35→11:14)
[2022-05-03] MEDS: InsuLIN REG 1unit/0.01ml Soln (100units/ml) SC SCH ×2 (06:36→11:15)
[2022-05-03] MEDS: HYDROcodone-ACET 10/325MG TAB PO PRN ×2 (06:39→12:27)
[2022-05-03 06:58] VITALS: BP 114/65
[2022-05-03 09:00] VITALS: BP 109/65
[2022-05-03] MEDS: APIXABAN 5 MG TAB PO SCH (10:00)
[2022-05-03] MEDS: ASCORBIC ACID 500 MG TAB PO SCH (10:00)
[2022-05-03] MEDS: ZINC SULFATE 220mg CAP or TAB PO SCH (10:00)
[2022-05-03] MEDS: SOTALOL HCL 80 MG TAB PO SCH (10:00)
[2022-05-03] MEDS: NYSTATIN TOPICAL POWDER 15GM TOP SCH (10:00)
[2022-05-03] MEDS: PANTOPRAZOLE 40 MG TAB PO SCH (10:00)
[2022-05-03] MEDS: MULTIPLE VITAMIN TAB PO SCH (10:00)
[2022-05-03] MEDS: ALPRAZolam 0.5 MG TAB PO PRN (11:17)
[2022-05-03] MEDS: MAGNESIUM SULFATE 1GM/100ML 100 ML IV SCH ×2 (11:26→12:28)
[2022-05-03] MEDS ORDERED: HYDR-4798 PO (11:45)
[2022-05-03] MEDS ORDERED: FUROSEMIDE 40 MG/4 ML VIAL IV SCH (18:00)
[2022-05-03] MEDS ORDERED: POTASSIUM CHL 20 Meq TABLET PO SCH (22:00)
== END 2022-05-03 13:45 | disposition home or self-care (01) | DRG 133 ==
LOC: ER 11:05 → EDBD 11:05 → TELE 16:24 → TELE-EAST 20:55
PROVIDERS: ADMIT Internal Medicine; ATTEND Internal Medicine
PROC: 5A09357 Assistance with Respiratory Ventilation, Less than 24 Consecutive Hours, Continuous Positive Airway Pressure (ICD-10-PCS; 2022-04-16)
PROC: 0W993ZZ Drainage of Right Pleural Cavity, Percutaneous Approach (ICD-10-PCS; principal; 2022-04-17)
PROC: 5A09357 Assistance with Respiratory Ventilation, Less than 24 Consecutive Hours, Continuous Positive Airway Pressure (ICD-10-PCS; 2022-04-17)
PROC: 5A09357 Assistance with Respiratory Ventilation, Less than 24 Consecutive Hours, Continuous Positive Airway Pressure (ICD-10-PCS; 2022-04-18)
PROC: 5A09357 Assistance with Respiratory Ventilation, Less than 24 Consecutive Hours, Continuous Positive Airway Pressure (ICD-10-PCS; 2022-04-19)
PROC: 5A09357 Assistance with Respiratory Ventilation, Less than 24 Consecutive Hours, Continuous Positive Airway Pressure (ICD-10-PCS; 2022-04-20)
PROC: 5A09357 Assistance with Respiratory Ventilation, Less than 24 Consecutive Hours, Continuous Positive Airway Pressure (ICD-10-PCS; 2022-04-21)
PROC: 5A09357 Assistance with Respiratory Ventilation, Less than 24 Consecutive Hours, Continuous Positive Airway Pressure (ICD-10-PCS; 2022-04-22)
PROC: 5A09357 Assistance with Respiratory Ventilation, Less than 24 Consecutive Hours, Continuous Positive Airway Pressure (ICD-10-PCS; 2022-04-23)
PROC: 5A09357 Assistance with Respiratory Ventilation, Less than 24 Consecutive Hours, Continuous Positive Airway Pressure (ICD-10-PCS; 2022-04-24)
PROC: 5A09357 Assistance with Respiratory Ventilation, Less than 24 Consecutive Hours, Continuous Positive Airway Pressure (ICD-10-PCS; 2022-04-25)
PROC: 5A09357 Assistance with Respiratory Ventilation, Less than 24 Consecutive Hours, Continuous Positive Airway Pressure (ICD-10-PCS; 2022-04-26)
PROC: 5A09357 Assistance with Respiratory Ventilation, Less than 24 Consecutive Hours, Continuous Positive Airway Pressure (ICD-10-PCS; 2022-04-27)
PROC: 5A09357 Assistance with Respiratory Ventilation, Less than 24 Consecutive Hours, Continuous Positive Airway Pressure (ICD-10-PCS; 2022-04-28)
DX: J96.20 Acute and chronic respiratory failure, unspecified whether with hypoxia or hypercapnia (principal); I50.23 Acute on chronic systolic (congestive) heart failure; J18.9 Pneumonia, unspecified organism; I42.8 Other cardiomyopathies; J91.8 Pleural effusion in other conditions classified elsewhere; N18.6 End stage renal disease; D63.8 Anemia in other chronic diseases classified elsewhere; E11.22 Type 2 diabetes mellitus with diabetic chronic kidney disease; J44.0 Chronic obstructive pulmonary disease with (acute) lower respiratory infection; J44.1 Chronic obstructive pulmonary disease with (acute) exacerbation; I48.91 Unspecified atrial fibrillation; E66.01 Morbid (severe) obesity due to excess calories; I44.7 Left bundle-branch block, unspecified; I13.2 Hypertensive heart and chronic kidney disease with heart failure and with stage 5 chronic kidney disease, or end stage renal disease; I16.1 Hypertensive emergency; Z20.822 Contact with and (suspected) exposure to COVID-19; Z68.42 Body mass index [BMI] 45.0-49.9, adult; Z83.3 Family history of diabetes mellitus; Z82.49 Family history of ischemic heart disease and other diseases of the circulatory system
CPT/HCPCS: 36415; 71045; 76604; 76942; 80048; 80053; 81001; 82962; 83735; 83880; 84100; 84132; 84484; 85007; 85025; 85027; 85610; 85730; 87081; 93005; 94640; 94660; 94762; C9113; G0378; J1815; J3480